=== PATIENT | male | born 1945 | race Caucasian/White ===

== ENCOUNTER 2017-09-03 22:47 | Emergency (ER) | payer MEDICARE, BC ==
[2017-09-03] MEDS ORDERED: Sodium Chloride 0.9% 10 ML Syringe FLUSH PRN (23:18)
[2017-09-03] MEDS ORDERED: Albuterol/Ipratropium 3.0-0.5 MG/3 ML Neb Soln NEB ONE (23:18)
[2017-09-03] MEDS ORDERED: Sodium Chloride 0.9% 2.5 ML Syringe FLUSH PRN (23:18)
--- NOTE | 2017-09-03 23:23 | EDM.PDOC ---
ED HPI GENERAL MEDICAL PROBLEM - General Chief Complaint: Cardiovascular Problem Stated Complaint: HIGH BLOOD PRESSURE Time Seen by Provider: 09/03/17 23:04 - History of Present Illness INITIAL COMMENTS - FREE TEXT/NARRATIVE: HISTORY AND PHYSICAL: History of present illness: The patient is a 72-year-old male follows in our family practice clinic and has a history of hypertension diabetes hypercholesterolemia and uses C Pap and has a long-standing history of dependent lower extremity edema for which she takes Lasix 80 mg daily and presents with family with episodic headache on and off for "a long while" and not feeling right which she is very ill-defined describing. He says he had a bad cold a couple weeks ago that he doesn't feel that he necessarily shaped but is not coughing up any phlegm and he has not had any fevers. He has no chest pain neck pain abdominal pain vomiting or diarrhea and no urinary complaints. He says his legs are swollen and unchanged from old. He says that he mostly has trouble at nighttime when he is trying to go to sleep and he feels very restless. He states compliance with his medications and his C Pap. He has not told Dr. Geller, his provider in the clinic, about the symptoms and his has been out of town for the last 2 weeks so the daughter at bedside is concerned about his true compliance with meds and his symptomatology. The patient says he's been eating and drinking normally. He is overall very vague about his symptoms and being forthcoming with his history. He does not take his blood pressure at home but was concerned about it Review of systems: As per history of present illness and below otherwise all systems reviewed and negative. Past medical history: As per history of present illness and as reviewed below otherwise noncontributory. Surgical history: As per history of present illness and as reviewed below otherwise noncontributory. Social history: No reported history of drug or alcohol abuse. Family history: As per history of present illness and as reviewed below otherwise noncontributory. Physical exam: Gen.: Well-developed well-nourished very overweight man who has a very large rotund abdomen but is speaking clearly without breathlessness. Vital signs are noted by me. On my evaluation his O2 sat on room air was 89-90%. HEENT: Atraumatic, normocephalic, pupils reactive, negative for conjunctival pallor or scleral icterus, mucous membranes moist, throat clear, neck supple, nontender, trachea midline. Lungs: Clear to auscultation with diminished breath sounds in the bases bilaterally and coarse breath sounds bilaterally, breath sounds equal bilaterally, chest nontender. Heart: S1S2, regular rate and rhythm no overt murmur but heart sounds are very distant Abdomen: Soft, nondistended, nontender. Rotund abdomen with hypoactive bowel sounds Negative for masses or hepatosplenomegaly. Negative for costovertebral tenderness. Pelvis: Stable nontender. Genitourinary: Deferred. Rectal: Deferred. Extremities: Atraumatic, negative for cords or calf pain. Neurovascular unremarkable. As no leg asymmetry but there is diffuse brawny edema and chronic skin changes of bilateral lower extremities appreciated Neuro: Awake, alert, oriented. Cranial nerves II through XII unremarkable. Cerebellum unremarkable. Motor and sensory unremarkable throughout. Exam nonfocal. Skin: There is no diaphoresis and he does have a pale overall appearance Diagnostics: EKG CBC CMP INR lactic acid UA troponin BNP influenza chest x-ray urine culture Therapeutics: IV O2 monitor DuoNeb Patient and family member at bedside are aware of all testing results and I will give him an antibiotic for home for his early UTI and send a urine culture. The patient states he does not feel any differently after the nebulizer treatment but his O2 sat on room air now is 93% on my evaluation. He does intermittently in our conversation take short shallow breaths and have encouraged him to try to take deeper breaths and focus on that. I also recommended to family that we call and get him a follow-up appointment in the next several days in the clinic. I have discussed with them the possibility of admission for further observation care and he declines that at this time and wants to be discharged home. His blood pressure is also normalized. I advised him on reasons to return to the ED Impression: Generalized malaise UTI Definitive disposition and diagnosis as appropriate pending reevaluation and review of above. headache Pain Score (Numeric/FACES): 4 - Related Data Allergies Allergy/AdvReac Type Severity Reaction Status Date / Time No Known Allergies Allergy Verified 09/03/17 23:08 Home Meds: Home Meds Allopurinol [Zyloprim] 300 mg PO DAILY 09/04/17 [History] Aspirin [Halfprin] 81 mg PO DAILY 09/04/17 [History] Furosemide 80 mg PO DAILY 09/04/17 [History] Potassium Chloride 20 meq PO DAILY 09/04/17 [History] Simvastatin [Zocor] 20 mg PO DAILY 09/04/17 [History] Telmisartan [Micardis] 80 mg PO DAILY 09/04/17 [History] metFORMIN [Glucophage] 1,000 mg PO BIDMEALS 09/04/17 [History] ED ROS GENERAL - Review of Systems Review Of Systems: ROS reveals no pertinent complaints other than HPI. ED EXAM, GENERAL - Physical Exam Exam: See Below (See dictation) Course - Vital Signs Last Recorded V/S: Last Vital Signs Temp 35.9 C 09/03/17 23:01 Pulse 91 09/04/17 01:04 Resp 24 H 09/04/17 01:04 BP 146/48 H 09/04/17 01:04 Pulse Ox 94 L 09/04/17 01:04 - Orders/Labs/Meds Orders: Active Orders 24 hr Category Date Time Status Cardiac Monitoring [RC] . DIRECTED Care 09/03/17 23:17 Active EKG Documentation Completion [RC] STAT Care 09/03/17 23:17 Active Oxygen Therapy, ED [RC] ASDIRECTED Care 09/03/17 23:17 Active Pulse Oximetry [RC] ASDIRECTED Care 09/03/17 23:17 Active RT Aerosol Therapy [RC] ASDIRECTED Care 09/03/17 23:19 Active Chest 2V [CR] Stat Exams 09/03/17 23:18 Taken CULTURE URINE [RM] Stat Lab 09/03/17 23:30 Received Sodium Chloride 0.9% [Saline Flush] Med 09/03/17 23:18 Active 10 ml FLUSH ASDIRECTED PRN Sodium Chloride 0.9% [Saline Flush] Med 09/03/17 23:18 Active 2.5 ml FLUSH ASDIRECTED PRN Saline Lock Insert [OM.PC] Stat Oth 09/03/17 23:17 Ordered Medication Orders Sodium Chloride (Saline Flush) 10 ml FLUSH ASDIRECTED PRN PRN Reason: Keep Vein Open Sodium Chloride (Saline Flush) 2.5 ml FLUSH ASDIRECTED PRN PRN Reason: Keep Vein Open Labs: Laboratory Tests 09/03/17 09/03/17 09/03/17 Range/Units 23:30 23:35 23:35 WBC 9.85 (4.0-11.0) K/uL RBC 4.70 (4.50-5.90) M/uL Hgb 13.8 (13.0-17.0) g/dL Hct 42.1 (38.0-50.0) % MCV 89.6 (80.0-98.0) fL MCH 29.4 (27.0-32.0) pg MCHC 32.8 (31.0-37.0) g/dL RDW Std Deviation 47.9 (28.0-62.0) fl RDW Coeff of Jane 15 (11.0-15.0) % Plt Count 204 (150-400) K/uL MPV 9.50 (7.40-12.00) fL Neut % (Auto) 65.9 (48.0-80.0) % Lymph % (Auto) 23.0 (16.0-40.0) % [place] % (Auto) 7.6 (0.0-15.0) % Eos % (Auto) 3.2 (0.0-7.0) % Baso % (Auto) 0.3 (0.0-1.5) % Neut # (Auto) 6.5 H (1.4-5.7) K/uL Lymph # (Auto) 2.3 (0.6-2.4) K/uL [place] # (Auto) 0.8 (0.0-0.8) K/uL Eos # (Auto) 0.3 (0.0-0.7) K/uL Baso # (Auto) 0.0 (0.0-0.1) K/uL Nucleated RBC % 0.0 /100WBC Nucleated RBCs # 0 K/uL INR 1.03 Lactate (0.20-2.00) mmol/L Sodium (136-148) mmol/L Potassium (3.5-5.1) mmol/L Chloride (98-107) mmol/L Carbon Dioxide (21.0-32.0) mmol/L BUN (7.0-18.0) mg/dL Creatinine (0.8-1.3) mg/dL Est Cr Clr Drug Dosing mL/min Estimated GFR (MDRD) ml/min Glucose (74-106) mg/dL Calcium (8.5-10.1) mg/dL Total Bilirubin (0.2-1.0) mg/dL AST (15-37) IU/L ALT (14-63) IU/L Alkaline Phosphatase (46-116) U/L Troponin I (0.000-0.056) ng/mL B-Natriuretic Peptide (<100) PG/ML Total Protein (6.4-8.2) g/dL Albumin (3.4-5.0) g/dL Globulin (2.0-3.5) g/dL Albumin/Globulin Ratio (1.3-2.8) Urine Color YELLOW Urine Appearance CLEAR Urine pH 7.0 (5.0-8.0) Ur Specific [place] 1.010 (1.001-1.035) Urine Protein NEGATIVE (NEGATIVE) mg/dL Urine Glucose (UA) NEGATIVE (NEGATIVE) mg/dL Urine Ketones TRACE H (NEGATIVE) mg/dL Urine Occult Blood SMALL H (NEGATIVE) Urine Nitrite NEGATIVE (NEGATIVE) Urine Bilirubin NEGATIVE (NEGATIVE) Urine Urobilinogen 1.0 (<2.0) EU/dL Ur Leukocyte Esterase SMALL (NEGATIVE) Urine RBC 0-3 (0-2/HPF) Urine WBC 2-4 (0-5/HPF) Ur Epithelial Cells RARE (NONE-FEW) Urine Bacteria FEW (NEGATIVE) 09/03/17 09/03/17 09/03/17 Range/Units 23:35 23:35 23:35 WBC (4.0-11.0) K/uL RBC (4.50-5.90) M/uL Hgb (13.0-17.0) g/dL Hct (38.0-50.0) % MCV (80.0-98.0) fL MCH (27.0-32.0) pg MCHC (31.0-37.0) g/dL RDW Std Deviation (28.0-62.0) fl RDW Coeff of Jane (11.0-15.0) % Plt Count (150-400) K/uL MPV (7.40-12.00) fL Neut % (Auto) (48.0-80.0) % Lymph % (Auto) (16.0-40.0) % [place] % (Auto) (0.0-15.0) % Eos % (Auto) (0.0-7.0) % Baso % (Auto) (0.0-1.5) % Neut # (Auto) (1.4-5.7) K/uL Lymph # (Auto) (0.6-2.4) K/uL [place] # (Auto) (0.0-0.8) K/uL Eos # (Auto) (0.0-0.7) K/uL Baso # (Auto) (0.0-0.1) K/uL Nucleated RBC % /100WBC Nucleated RBCs # K/uL INR Lactate 2.3 H (0.20-2.00) mmol/L Sodium 143 (136-148) mmol/L Potassium 3.9 (3.5-5.1) mmol/L Chloride 105 (98-107) mmol/L Carbon Dioxide 27.8 (21.0-32.0) mmol/L BUN 12 (7.0-18.0) mg/dL Creatinine 0.9 (0.8-1.3) mg/dL Est Cr Clr Drug Dosing 79.02 mL/min Estimated GFR (MDRD) > 60.0 ml/min Glucose 143 H (74-106) mg/dL Calcium 9.4 (8.5-10.1) mg/dL Total Bilirubin 0.3 (0.2-1.0) mg/dL AST 19 (15-37) IU/L ALT 37 (14-63) IU/L Alkaline Phosphatase 70 (46-116) U/L Troponin I < 0.050 (0.000-0.056) ng/mL B-Natriuretic Peptide 61 (<100) PG/ML Total Protein 7.2 (6.4-8.2) g/dL Albumin 3.7 (3.4-5.0) g/dL Globulin 3.5 (2.0-3.5) g/dL Albumin/Globulin Ratio 1.1 L (1.3-2.8) Urine Color Urine Appearance Urine pH (5.0-8.0) Ur Specific [place] (1.001-1.035) Urine Protein (NEGATIVE) mg/dL Urine Glucose (UA) (NEGATIVE) mg/dL Urine Ketones (NEGATIVE) mg/dL Urine Occult Blood (NEGATIVE) Urine Nitrite (NEGATIVE) Urine Bilirubin (NEGATIVE) Urine Urobilinogen (<2.0) EU/dL Ur Leukocyte Esterase (NEGATIVE) Urine RBC (0-2/HPF) Urine WBC (0-5/HPF) Ur Epithelial Cells (NONE-FEW) Urine Bacteria (NEGATIVE) Meds: Medications Generic Name Dose Route Start Last Admin Trade Name Freq PRN Reason Stop Dose Admin Sodium Chloride 10 ml 09/03/17 23:18 Saline Flush FLUSH ASDIRECTED PRN Keep Vein Open Sodium Chloride 2.5 ml 09/03/17 23:18 Saline Flush FLUSH ASDIRECTED PRN Keep Vein Open Discontinued Medications Generic Name Dose Route Start Last Admin Trade Name Freq PRN Reason Stop Dose Admin Albuterol/Ipratropium 3 ml 09/03/17 23:18 09/03/17 23:50 Duoneb 3.0-0.5 Mg/3 Ml NEB 09/03/17 23:19 3 ml ONETIME ONE Administration Departure - Departure Time of Disposition: :06 Disposition: Home, Self-Care 01 Condition: Good Clinical Impression: Generalized weakness UTI (urinary tract infection) Qualifiers: Urinary tract infection type: site unspecified Hematuria presence: without hematuria Qualified Code(s): N39.0 - Urinary tract infection, site not specified Referrals: Matty Geller MD [Primary Care Provider] - Forms: ED Department Discharge Additional Instructions: The following information is given to patients seen in the emergency department who are being discharged to home. This information is to outline your options for follow-up care. We provide all patients seen in our emergency department with a follow-up referral. The need for follow-up, as well as the timing and circumstances, are variable depending upon the specifics of your emergency department visit. If you don't have a primary care physician on staff, we will provide you with a referral. We always advise you to contact your personal physician following an emergency department visit to inform them of the circumstance of the visit and for follow-up with them and/or the need for any referrals to a consulting specialist. The emergency department will also refer you to a specialist when appropriate. This referral assures that you have the opportunity for followup care with a specialist. All of these measure are taken in an effort to provide you with optimal care, which includes your followup. Under all circumstances we always encourage you to contact your private physician who remains a resource for coordinating your care. When calling for followup care, please make the office aware that this follow-up is from your recent emergency room visit. If for any reason you are refused follow-up, please contact the [facility] emergency department at and ask to speak to the emergency department charge nurse. [facility] Primary care- Internal Medicine and Family [address] [id number] Please continue all your home medications and as the antibiotic you have been prescribed, Cipro, for the urine infection. Please monitor your symptoms and return to ER as needed and as discussed. Please call the clinic first thing in the morning to schedule a follow-up appointment with your provider or one of the other family practice doctors in the next few days for further care and reevaluation. - My Orders Last 24 Hours: My Active Orders 09/03/17 23:17 Cardiac Monitoring [RC] . DIRECTED EKG Documentation Completion [RC] STAT Oxygen Therapy, ED [RC] ASDIRECTED Pulse Oximetry [RC] ASDIRECTED Saline Lock Insert [OM.PC] Stat 09/03/17 23:18 Chest 2V [CR] Stat Sodium Chloride 0.9% [Saline Flush] 10 ml FLUSH ASDIRECTED PRN Sodium Chloride 0.9% [Saline Flush] 2.5 ml FLUSH ASDIRECTED PRN 09/03/17 23:19 RT Aerosol Therapy [RC] ASDIRECTED 09/03/17 23:30 CULTURE URINE [RM] Stat - Assessment/Plan Last 24 Hours: My Active Orders 09/03/17 23:17 Cardiac Monitoring [RC] . DIRECTED EKG Documentation Completion [RC] STAT Oxygen Therapy, ED [RC] ASDIRECTED Pulse Oximetry [RC] ASDIRECTED Saline Lock Insert [OM.PC] Stat 09/03/17 23:18 Chest 2V [CR] Stat Sodium Chloride 0.9% [Saline Flush] 10 ml FLUSH ASDIRECTED PRN Sodium Chloride 0.9% [Saline Flush] 2.5 ml FLUSH ASDIRECTED PRN 09/03/17 23:19 RT Aerosol Therapy [RC] ASDIRECTED 09/03/17 23:30 CULTURE URINE [RM] Stat
[2017-09-04 00:16] LABS: CHLORIDE,CL 105 mmol/L (98-107); SODIUM,NA 143 mmol/L (136-148)
--- NOTE | 2017-09-04 10:35 | CR ---
EXAM DATE: 09/03/17 PATIENT'S AGE: 72 Patient: MILTON GUEVARA Facility: [place], [place] Site . Site : 1945 Study: XRay Chest [id number] 12:31:10 AM Ordering Physician: Issac Zazueta Final Report: INDICATION: Hypertension, shortness of breath TECHNIQUE: Chest 2 views. COMPARISON: November 13, 2011 FINDINGS: Stable cardiomegaly. No pneumothorax, focal consolidation, or significant effusion. Pulmonary vasculature is normal. No acute osseous abnormality. IMPRESSION: No sign of acute disease. Dictated by Asia Graves MD @ Sep 04 2017 12:33AM (Electronic Signature) Report Signed by Proxy. [facility]
== END 2017-09-04 01:42 | disposition home or self-care (01) ==
LOC: MW.ED 22:47
DX: N39.0 Urinary tract infection, site not specified (principal); R53.1 Weakness; I10 Essential (primary) hypertension; E11.9 Type 2 diabetes mellitus without complications; E78.00 Pure hypercholesterolemia, unspecified; Z79.899 Other long term (current) drug therapy; Z79.82 Long term (current) use of aspirin; Z79.84 Long term (current) use of oral hypoglycemic drugs
CPT/HCPCS: 36415; 71046; 71046-26; 80053; 81001; 83605; 83880; 84484; 85025; 85610; 87086; 87804; 93005; 94640; 99284; 99284-25

== ENCOUNTER 2018-03-19 10:20 | Emergency (ER) | payer MEDICARE, BC ==
[2018-03-19] MEDS ORDERED: Albuterol/Ipratropium 3.0-0.5 MG/3 ML Neb Soln NEB ONE (10:44)
[2018-03-19] MEDS ORDERED: methylPREDNISolone Sodium Succinate 125 MG/2 ML SDV IVPUSH ONE (10:44)
[2018-03-19] MEDS ORDERED: Sodium Chloride 0.9% 1,000 ML IV SCH (10:45)
--- NOTE | 2018-03-19 10:46 | EDM.PDOC ---
ED HPI GENERAL MEDICAL PROBLEM - General Chief Complaint: Respiratory Problem Stated Complaint: CHEST PAIN Time Seen by Provider: 03/19/18 10:45 Source of Information: Reports: Patient - History of Present Illness INITIAL COMMENTS - FREE TEXT/NARRATIVE: HISTORY AND PHYSICAL: History of present illness: [Patient with intermittent chest pain 2 out of 10 nonradiating shortness of breath on exertion only, able ambulate 10 feet only, no diaphoresis presents by private vehicle in no distress. Found to be hypoxic on room air he 5% at rest No current active chest pain History of CHF Review of systems: As per history of present illness and below otherwise all systems reviewed and negative. Past medical history: As per history of present illness and as reviewed below otherwise noncontributory. Surgical history: As per history of present illness and as reviewed below otherwise noncontributory. Social history: No reported history of drug or alcohol abuse. Family history: As per history of present illness and as reviewed below otherwise noncontributory. Physical exam: HEENT: Atraumatic, normocephalic, pupils reactive, negative for conjunctival pallor or scleral icterus, mucous membranes moist, throat clear, neck supple, nontender, trachea midline. Lungs: Clear to auscultation, breath sounds equal bilaterally, chest nontender. Heart: S1S2, regular, negative for clicks, rubs, or JVD. Abdomen: Soft, nondistended, nontender. Negative for masses or hepatosplenomegaly. Negative for costovertebral tenderness. Pelvis: Stable nontender. Genitourinary: Deferred. Rectal: Deferred. Extremities: Atraumatic, negative for cords or calf pain. Neurovascular unremarkable. Neuro: Awake, alert, oriented. Cranial nerves II through XII unremarkable. Cerebellum unremarkable. Motor and sensory unremarkable throughout. Exam nonfocal. Diagnostics: [CBC CMP UA INR troponin lipase d-dimer EKG Chest 1 view ] Therapeutics: [ normal saline Solu-Medrol 125 mg IV DuoNeb ]Lovenox 180 mg subcutaneous Patient is transferred to the ER Dr. Mosqueda for CT consideration and retract Currently ground transfers not available to possibly 4 PM, hence we have elected to fly the patient has PE is a strong consideration Impression: Hypoxia Rule out PE [Chest pain ]Shortness of breath Left pleural effusion Definitive disposition and diagnosis as appropriate pending reevaluation and review of above. - Related Data Allergies Allergy/AdvReac Type Severity Reaction Status Date / Time No Known Allergies Allergy Verified 03/19/18 10:34 Home Meds: Home Meds Allopurinol [Zyloprim] 300 mg PO DAILY 09/04/17 [History] Simvastatin [Zocor] 20 mg PO BEDTIME 09/04/17 [History] metFORMIN [Glucophage] 1,000 mg PO BIDMEALS 09/04/17 [History] Aspirin 325 mg PO DAILY 03/02/18 [History] Furosemide 40 mg PO BID 03/02/18 [History] Losartan [Cozaar] 100 mg PO BEDTIME 03/02/18 [History] Potassium Chloride [Klor-Con M20] 1 tab PO BID 03/19/18 [History] Past Medical History HEENT History: Reports: Cataract Cardiovascular History: Reports: Afib, Heart Failure, High Cholesterol, Hypertension Respiratory History: Reports: Asthma, COPD, Sleep Apnea, SOB Other Respiratory History: on CPAP Gastrointestinal History: Reports: Fecal Incontinence Musculoskeletal History: Reports: Arthritis Other Musculoskeletal History: hx. fx collarbone Psychiatric History: Reports: Anxiety, Depression Endocrine/Metabolic History: Reports: Diabetes, Type II, Obesity/BMI 30+ Dermatologic History: Reports: Cellulitis, Venous Stasis Dermatitis - Infectious Disease History Infectious Disease History: Reports: Chicken Pox - Past Surgical History HEENT Surgical History: Reports: Tonsillectomy Cardiovascular Surgical History: Reports: None Respiratory Surgical History: Reports: None GI Surgical History: Reports: Hernia, Abdominal Musculoskeletal Surgical History: Reports: None Social & Family History - Family History Family Medical History: Noncontributory - Tobacco Use Smoking Status *Q: Never Smoker - Caffeine Use Caffeine Use: Reports: None Caffeine Use Comment: 1-2 diet pop drinks per day - Alcohol Use Days Per Week of Alcohol Use: 2 Number of Drinks Per Day: 6 Total Drinks Per Week: 12 - Recreational Drug Use Recreational Drug Use: No ED ROS GENERAL - Review of Systems Review Of Systems: See Below ED EXAM, GENERAL - Physical Exam Exam: See Below Course - Vital Signs Last Recorded V/S: Last Vital Signs Temp 97.8 F 03/19/18 10:26 Pulse 83 03/19/18 10:26 Resp 22 H 03/19/18 10:26 BP 203/86 H 03/19/18 10:26 Pulse Ox 95 03/19/18 10:59 - Orders/Labs/Meds Orders: Active Orders 24 hr Category Date Time Status EKG Documentation Completion [RC] STAT Care 03/19/18 10:44 Active RT Aerosol Therapy [RC] ASDIRECTED Care 03/19/18 10:44 Active UA W/MICROSCOPIC [URIN] Stat Lab 03/19/18 10:44 Ordered Sodium Chloride 0.9% [Normal Saline] 1,000 ml Med 03/19/18 10:45 Active IV STAT Medication Orders Sodium Chloride (Normal Saline) 1,000 mls @ 125 mls/hr IV STAT SHRUTHI Last Admin: 03/19/18 11:40 Dose: 125 mls/hr Labs: Laboratory Tests 03/19/18 03/19/18 03/19/18 Range/Units 10:50 10:50 10:50 WBC 11.53 H (4.0-11.0) K/uL RBC 4.73 (4.50-5.90) M/uL Hgb 13.2 (13.0-17.0) g/dL Hct 40.8 (38.0-50.0) % MCV 86.3 (80.0-98.0) fL MCH 27.9 (27.0-32.0) pg MCHC 32.4 (31.0-37.0) g/dL RDW Std Deviation 48.9 (28.0-62.0) fl RDW Coeff of Jane 16 H (11.0-15.0) % Plt Count 287 (150-400) K/uL MPV 9.40 (7.40-12.00) fL Neut % (Auto) 79.9 (48.0-80.0) % Lymph % (Auto) 9.7 L (16.0-40.0) % [place] % (Auto) 8.8 (0.0-15.0) % Eos % (Auto) 1.3 (0.0-7.0) % Baso % (Auto) 0.3 (0.0-1.5) % Neut # (Auto) 9.2 H (1.4-5.7) K/uL Lymph # (Auto) 1.1 (0.6-2.4) K/uL [place] # (Auto) 1.0 H (0.0-0.8) K/uL Eos # (Auto) 0.2 (0.0-0.7) K/uL Baso # (Auto) 0.0 (0.0-0.1) K/uL Nucleated RBC % 0.0 /100WBC Nucleated RBCs # 0 K/uL INR 1.12 D-Dimer, Quantitative 3.74 H (0.0-0.52) mg/LFEU Sodium 139 (136-148) mmol/L Potassium 3.9 (3.5-5.1) mmol/L Chloride 102 (98-107) mmol/L Carbon Dioxide 29.0 (21.0-32.0) mmol/L BUN 9 (7.0-18.0) mg/dL Creatinine 0.9 (0.8-1.3) mg/dL Est Cr Clr Drug Dosing 77.86 mL/min Estimated GFR (MDRD) > 60.0 ml/min Glucose 144 H (74-106) mg/dL Calcium 9.2 (8.5-10.1) mg/dL Total Bilirubin 0.5 (0.2-1.0) mg/dL AST 17 (15-37) IU/L ALT 31 (14-63) IU/L Alkaline Phosphatase 90 (46-116) U/L Troponin I < 0.050 (0.000-0.056) ng/mL B-Natriuretic Peptide (<100) PG/ML Total Protein 7.6 (6.4-8.2) g/dL Albumin 3.1 L (3.4-5.0) g/dL Globulin 4.5 H (2.0-3.5) g/dL Albumin/Globulin Ratio 0.7 L (1.3-2.8) Lipase 209 (73-393) U/L 03/19/18 Range/Units 10:50 WBC (4.0-11.0) K/uL RBC (4.50-5.90) M/uL Hgb (13.0-17.0) g/dL Hct (38.0-50.0) % MCV (80.0-98.0) fL MCH (27.0-32.0) pg MCHC (31.0-37.0) g/dL RDW Std Deviation (28.0-62.0) fl RDW Coeff of Jane (11.0-15.0) % Plt Count (150-400) K/uL MPV (7.40-12.00) fL Neut % (Auto) (48.0-80.0) % Lymph % (Auto) (16.0-40.0) % [place] % (Auto) (0.0-15.0) % Eos % (Auto) (0.0-7.0) % Baso % (Auto) (0.0-1.5) % Neut # (Auto) (1.4-5.7) K/uL Lymph # (Auto) (0.6-2.4) K/uL [place] # (Auto) (0.0-0.8) K/uL Eos # (Auto) (0.0-0.7) K/uL Baso # (Auto) (0.0-0.1) K/uL Nucleated RBC % /100WBC Nucleated RBCs # K/uL INR D-Dimer, Quantitative (0.0-0.52) mg/LFEU Sodium (136-148) mmol/L Potassium (3.5-5.1) mmol/L Chloride (98-107) mmol/L Carbon Dioxide (21.0-32.0) mmol/L BUN (7.0-18.0) mg/dL Creatinine (0.8-1.3) mg/dL Est Cr Clr Drug Dosing mL/min Estimated GFR (MDRD) ml/min Glucose (74-106) mg/dL Calcium (8.5-10.1) mg/dL Total Bilirubin (0.2-1.0) mg/dL AST (15-37) IU/L ALT (14-63) IU/L Alkaline Phosphatase (46-116) U/L Troponin I (0.000-0.056) ng/mL B-Natriuretic Peptide 131 H (<100) PG/ML Total Protein (6.4-8.2) g/dL Albumin (3.4-5.0) g/dL Globulin (2.0-3.5) g/dL Albumin/Globulin Ratio (1.3-2.8) Lipase (73-393) U/L Meds: Medications Generic Name Dose Route Start Last Admin Trade Name Freq PRN Reason Stop Dose Admin Sodium Chloride 1,000 mls @ 125 mls/hr 03/19/18 10:45 03/19/18 11:40 Normal Saline IV 125 mls/hr STAT SHRUTHI Administration Discontinued Medications Generic Name Dose Route Start Last Admin Trade Name Gaurav PRN Reason Stop Dose Admin Albuterol/Ipratropium 3 ml 03/19/18 10:44 03/19/18 10:58 Duoneb 3.0-0.5 Mg/3 Ml NEB 03/19/18 10:45 3 ml ONETIME ONE Administration Enoxaparin Sodium 150 mg 03/19/18 12:24 Lovenox SUBCUT 03/19/18 12:25 ONETIME ONE Enoxaparin Sodium 30 mg 03/19/18 12:25 Lovenox SUBCUT 03/19/18 12:26 ONETIME ONE Furosemide 40 mg 03/19/18 12:00 Lasix IVPUSH 03/19/18 12:01 NOW ONE Methylprednisolone Sodium Succinate 125 mg 03/19/18 10:44 03/19/18 11:42 Solu-Medrol IVPUSH 03/19/18 10:45 125 mg ONETIME ONE Administration Metoprolol Tartrate 5 mg 03/19/18 12:00 Lopressor IVPUSH 03/19/18 12:11 Q5M SHRUTHI Departure - Departure Time of Disposition: 12:27 Disposition: DC/Tfer to Acute Hospital 02 Condition: Poor Clinical Impression: CHF (congestive heart failure), Hypoxia - Discharge Information Referrals: PCP,None [Primary Care Provider] - Forms: ED Department Discharge - My Orders Last 24 Hours: My Active Orders 03/19/18 10:44 EKG Documentation Completion [RC] STAT RT Aerosol Therapy [RC] ASDIRECTED UA W/MICROSCOPIC [URIN] Stat 03/19/18 10:45 Sodium Chloride 0.9% [Normal Saline] 1,000 ml IV STAT - Assessment/Plan Last 24 Hours: My Active Orders 03/19/18 10:44 EKG Documentation Completion [RC] STAT RT Aerosol Therapy [RC] ASDIRECTED UA W/MICROSCOPIC [URIN] Stat 03/19/18 10:45 Sodium Chloride 0.9% [Normal Saline] 1,000 ml IV STAT
[2018-03-19 11:46] LABS: CHLORIDE,CL 102 mmol/L (98-107); SODIUM,NA 139 mmol/L (136-148)
--- NOTE | 2018-03-19 11:49 | CR ---
EXAMINATION: Portable chest radiograph. HISTORY: Hypoxia. FINDINGS: The trachea is midline. The heart is enlarged. There is a moderate left pleural effusion. No pneumoth orax. Osseous structures appear unremarkable. IMPRESSION: Cardiomegaly with a left pleural effusion, likely exacerbation of CHF.
[2018-03-19] MEDS ORDERED: Metoprolol Tartrate 5 MG/5 ML SDV IVPUSH SCH (12:00)
[2018-03-19] MEDS ORDERED: Furosemide 40 MG/4 ML VIAL IVPUSH ONE (12:00)
[2018-03-19] MEDS ORDERED: Enoxaparin 150 MG/1 ML Syringe SUBCUT ONE (12:24)
[2018-03-19] MEDS ORDERED: Enoxaparin 30 MG/0.3 ML Syringe SUBCUT ONE (12:25)
== END 2018-03-19 13:11 ==
LOC: MW.ED 10:20
DX: I11.0 Hypertensive heart disease with heart failure (principal); I50.9 Heart failure, unspecified; R09.02 Hypoxemia; J90 Pleural effusion, not elsewhere classified; E11.9 Type 2 diabetes mellitus without complications; E66.9 Obesity, unspecified; I48.91 Unspecified atrial fibrillation; Z79.82 Long term (current) use of aspirin; Z79.84 Long term (current) use of oral hypoglycemic drugs; Z79.899 Other long term (current) drug therapy
CPT/HCPCS: 71045; 80053; 81001; 83690; 83880; 84484; 85025; 85379; 85610; 93005; 94640; 96361; 96372; 96374; 96375; 99285; J1650; J1940; J2930; J3490; J7040; J7620-GY

== ENCOUNTER 2020-02-27 11:53 | Inpatient (IN) | payer MEDICARE, BC, OTHER ==
[2020-02-27] MEDS ORDERED: Sodium Chloride 0.9% 2.5 ML Syringe FLUSH PRN (12:02)
[2020-02-27] MEDS ORDERED: Sodium Chloride 0.9% 10 ML Syringe FLUSH PRN (12:02)
[2020-02-27] MEDS ORDERED: Diltiazem 25 MG/5 ML SDV IVPUSH ONE (12:03)
[2020-02-27] MEDS ORDERED: Diltiazem 125 MG in Sodium Chloride 0.9% 100 ML IV SCH (12:15)
[2020-02-27] MEDS ORDERED: Diltiazem 100 MG in Sodium Chloride 0.9% 100 ML IV SCH ×4 (12:15)
--- NOTE | 2020-02-27 12:18 | EDM.PDOC ---
ED HPI GENERAL MEDICAL PROBLEM - General Chief Complaint: Respiratory Problem Stated Complaint: INCREASED HEART RATE Time Seen by Provider: 02/27/20 12:00 Source of Information: Reports: Patient, Other (clinic called and spoke to FREDY Sánchez) - History of Present Illness INITIAL COMMENTS - FREE TEXT/NARRATIVE: History of present illness: 74-year-old male brought over from [facility] due to elevated heart rate and dyspnea. The patient reported he did not have any significant complaints but apparently when he got to the clinic for his routine primary care visit, they noticed his heart rate to be in the 250s. Once they sat him down and rested his heart rate went down to the 120s and they checked an EKG and found him to be in atrial fibrillation. They did report he had a history of atrial fibrillation, seen on prior EKG in 2018. Denies chest pain. He does report that over the last 2 weeks he has had decreased exercise tolerance and increased shortness of breath and palpitations with walking across the parking lot or even greater than 30 feet. He did develop some worsening shortness of breath and tachycardia transferring from wheelchair to stretcher in the emergency department here. He reports that he has chronically been sleeping in a recliner for the last 20 years due to some chronic dyspnea. Denies any chest pain, coughing, headache or chills. Also denies any leg pain. He does have some chronic lower extremity swelling and an open wound on the right lower extremity which he tells me happens all the time. 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 Simpson had recently changed him from 80 mg of furosemide daily (40 twice daily ) to 40 mg of torsemide but the patient did not have any improvement in his lower extremity swelling and so he went back to taking his furosemide. The patient provided me his med list, which I reviewed, he only takes aspirin and no other anticoagulation. Review of systems: As per history of present illness and below otherwise all systems reviewed and negative. Past medical history: As per history of present illness and as reviewed below otherwise noncontributory. CHF, atrial fibrillation, lower extremity ulcers, diabetes, diastolic heart failure, hypokalemia, DVT, gout, hypercholesterolemia, obesity, venous stasis dermatitis, umbilical hernia, cellulitis, chronic leg edema, hypertension Surgical history: As per history of present illness and as reviewed below otherwise noncontributory. Tonsillectomy Social history: No reported history of drug or alcohol abuse. Alcohol use occasionally, never smoker but did have remote secondhand smoke exposure Family history: As per history of present illness and as reviewed below otherwise noncontributory. Fatherhypertension Physical exam: GEN: Mild respiratory distress while transferring from wheelchair to stretcher, obese, somewhat chronically ill appearing, morbidly obese HEENT: Atraumatic, normocephalic, mucous membranes moist, Neck: supple, nontender, trachea midline. Lungs: Mild to moderate respiratory distress., Improved after the patient is seated on the stretcher. No wheezing, rales or rhonchi Heart: Tachycardic and irregular, 130s to 150s, appears consistent with atrial fibrillation on monitor and EKG Abdomen: Soft, nondistended, nontender. Obese. Large lower abdominal hernia Back: nontender Extremities: Chronicappearing stasis dermatitis with lichenization, RLE ulcer/open wound, erythematous, does not appear infected, no purulent drainage, no calf tenderness. Neurovascularly intact. Neuro: Awake, alert, oriented. Neuro Exam nonfocal. Skin: warm, dry, no lesions Diagnostics: Labs, EKG, chest x-ray Therapeutics: Diltiazem bolus and drip MDM: Impression: AFib with RVR Plan: [] Definitive disposition and diagnosis as appropriate pending reevaluation and review of above. - Related Data Allergies Allergy/AdvReac Type Severity Reaction Status Date / Time No Known Allergies Allergy Verified 02/27/20 12:03 Home Meds: Home Meds Simvastatin [Zocor] 20 mg PO BEDTIME 09/04/17 [History] allopurinoL [Zyloprim] 300 mg PO DAILY 09/04/17 [History] metFORMIN [Glucophage] 1,000 mg PO BIDMEALS 09/04/17 [History] Aspirin 325 mg PO DAILY 03/02/18 [History] Furosemide 40 mg PO BID 03/02/18 [History] Losartan [Cozaar] 100 mg PO BEDTIME 03/02/18 [History] Potassium Chloride [Klor-Con M20] 1 tab PO BID 03/19/18 [History] Past Medical History HEENT History: Reports: Cataract Cardiovascular History: Reports: Afib, Heart Failure, High Cholesterol, Hypertension Respiratory History: Reports: Asthma, COPD, Sleep Apnea, SOB Other Respiratory History: on CPAP Gastrointestinal History: Reports: Fecal Incontinence Musculoskeletal History: Reports: Arthritis Other Musculoskeletal History: hx. fx collarbone Psychiatric History: Reports: Anxiety, Depression Endocrine/Metabolic History: Reports: Diabetes, Type II, Obesity/BMI 30+ Dermatologic History: Reports: Cellulitis, Venous Stasis Dermatitis - Infectious Disease History Infectious Disease History: Reports: Chicken Pox - Past Surgical History HEENT Surgical History: Reports: Tonsillectomy Cardiovascular Surgical History: Reports: None Respiratory Surgical History: Reports: None GI Surgical History: Reports: Hernia, Abdominal Musculoskeletal Surgical History: Reports: None Social & Family History - Family History Family Medical History: Noncontributory - Caffeine Use Caffeine Use: Reports: None Caffeine Use Comment: 1-2 diet pop drinks per day ED ROS GENERAL - Review of Systems Review Of Systems: See Below (See HPI) ED EXAM, GENERAL - Physical Exam Exam: See Below (See HPI) EKG INTERPRETATION EKG Interpretation Comments: EKG performed today at 11:58 AM, atrial fibrillation with rapid ventricular rate at a rate of 156, mild diffuse ST depressions likely rate related. No STEMI. EKG independently interpreted by me. EKG performed at 4:42 PM, atrial flutter/fibrillation at a rate of 105, mildly prolonged QT interval of 525. No acute ischemia, no STEMI. Independently interpreted by me. Course - Vital Signs Text/Narrative:: Presenting with rate, atrial fibrillation on EKG here and at the clinic. Has had some slowly progressive dyspnea over the last 2 weeks as well without cough or chest pain. History of diastolic heart failure. Patient already on 40 mg twice daily furosemide but was recently changed to torsemide, however self changed himself back to furosemide. Takes only aspirin, no other anticoagulation. Started on diltiazem bolus and diltiazem drip here. Troponin negative. Heart rate improved after diltiazem drip, now in the low 100s. Still appears to be atrial fibrillation versus atrial flutter. Dyspnea improved while patient seated relaxed. BNP not elevated. Chest x-ray with no acute findings to account for the patient's dyspnea. Therefore as the patient had a history of DVT, CT angios was performed. However given the p atient's size and girth, he was not able to fit in the high resolution CT scan, therefore he was scanned in the other CT scanner which has a slightly suboptimal technique and therefore distal branches unable to be visualized, however no large embolism in the proximal arterial branches. No other acute abnormality seen on CT scan. COVID negative. He was started on Lovenox. Repeat troponin negative. Will admit to ICU as he is on ongoing diltiazem drip but otherwise vital signs have been stable here. Last Recorded V/S: Last Vital Signs Temp 96.0 F L 02/27/20 12:01 Pulse 98 02/27/20 13:00 Resp 24 H 02/27/20 12:01 BP 143/76 H 02/27/20 13:00 Pulse Ox 93 L 02/27/20 13:00 - Orders/Labs/Meds Orders: Active Orders 24 hr Category Date Time Status Patient Status [ADT] Routine ADT 02/27/20 15:26 Active Communication Order [RC] STAT Care 02/27/20 13:04 Active Venous Doppler Lwr Ext Bi [US] Stat Exams 02/27/20 14:35 Ordered Diltiazem [Cardizem] 100 mg Med 02/27/20 12:15 Active Sodium Chloride 0.9% [Normal Saline] 100 ml IV ASDIRECTED Sodium Chloride 0.9% [Saline Flush] Med 02/27/20 12:02 Active 10 ml FLUSH ASDIRECTED PRN Sodium Chloride 0.9% [Saline Flush] Med 02/27/20 12:02 Active 2.5 ml FLUSH ASDIRECTED PRN Saline Lock Insert [OM.PC] Stat Oth 02/27/20 12:02 Ordered Medication Orders Diltiazem HCl 100 mg/ Sodium (Chloride) 100 mls @ 5 mls/hr IV ASDIRECTED SHRUTHI Last Infusion: 02/27/20 12:58 Dose: 10 mls/hr Documented by: Admin: 02/27/20 12:26 Dose: 5 mls/hr Documented by: GARETT Pantoprazole Sodium 40 mg/ (Sodium Chloride) 10 mls @ 300 mls/hr IV DAILY SHRUTHI Insulin Aspart (Novolog) 0 unit SUBCUT TIDAC SHRUTHI; Protocol Sodium Chloride (Saline Flush) 10 ml FLUSH ASDIRECTED PRN PRN Reason: Keep Vein Open Last Admin: 02/27/20 12:08 Dose: 10 ml Documented by: IAN Sodium Chloride (Saline Flush) 2.5 ml FLUSH ASDIRECTED PRN PRN Reason: Keep Vein Open Last Admin: 02/27/20 12:08 Dose: 2.5 ml Documented by: [email or web address] Labs: Laboratory Tests 02/27/20 02/27/20 02/27/20 Range/Units 12:00 12:00 12:00 WBC 12.77 H (4.0-11.0) K/uL RBC 4.86 (4.50-5.90) M/uL Hgb 14.0 (13.0-17.0) g/dL Hct 44.1 (38.0-50.0) % MCV 90.7 (80.0-98.0) fL MCH 28.8 (27.0-32.0) pg MCHC 31.7 (31.0-37.0) g/dL RDW Std Deviation 52.3 (28.0-62.0) fl RDW Coeff of Jane 16 H (11.0-15.0) % Plt Count 189 (150-400) K/uL MPV 9.70 (7.40-12.00) fL Neut % (Auto) 78.8 (48.0-80.0) % Lymph % (Auto) 13.0 L (16.0-40.0) % [place] % (Auto) 7.0 (0.0-15.0) % Eos % (Auto) 1.0 (0.0-7.0) % Baso % (Auto) 0.2 (0.0-1.5) % Neut # (Auto) 10.1 H (1.4-5.7) K/uL Lymph # (Auto) 1.7 (0.6-2.4) K/uL [place] # (Auto) 0.9 H (0.0-0.8) K/uL Eos # (Auto) 0.1 (0.0-0.7) K/uL Baso # (Auto) 0.0 (0.0-0.1) K/uL Nucleated RBC % 0.0 /100WBC Nucleated RBCs # 0 K/uL INR 1.39 Sodium 143 (136-148) mmol/L Potassium 3.8 (3.5-5.1) mmol/L Chloride 105 (98-107) mmol/L Carbon Dioxide 25.4 (21.0-32.0) mmol/L BUN 10 (7.0-18.0) mg/dL Creatinine 0.9 (0.8-1.3) mg/dL Est Cr Clr Drug Dosing 79.04 mL/min Estimated GFR (MDRD) > 60.0 ml/min Glucose 152 H (74-106) mg/dL Calcium 9.3 (8.5-10.1) mg/dL Total Bilirubin 0.5 (0.2-1.0) mg/dL AST 30 (15-37) IU/L ALT 33 (14-63) IU/L Alkaline Phosphatase 70 (46-116) U/L Troponin I < 0.050 (0.000-0.056) ng/mL B-Natriuretic Peptide (<100) PG/ML Total Protein 7.7 (6.4-8.2) g/dL Albumin 4.0 (3.4-5.0) g/dL Globulin 3.7 (2.6-4.0) g/dL Albumin/Globulin Ratio 1.1 (0.9-1.6) SARS Virus RNA (PCR) (NEGATIVE) 02/27/20 02/27/20 02/27/20 Range/Units 12:00 15:17 15:20 WBC (4.0-11.0) K/uL RBC (4.50-5.90) M/uL Hgb (13.0-17.0) g/dL Hct (38.0-50.0) % MCV (80.0-98.0) fL MCH (27.0-32.0) pg MCHC (31.0-37.0) g/dL RDW Std Deviation (28.0-62.0) fl RDW Coeff of Jane (11.0-15.0) % Plt Count (150-400) K/uL MPV (7.40-12.00) fL Neut % (Auto) (48.0-80.0) % Lymph % (Auto) (16.0-40.0) % [place] % (Auto) (0.0-15.0) % Eos % (Auto) (0.0-7.0) % Baso % (Auto) (0.0-1.5) % Neut # (Auto) (1.4-5.7) K/uL Lymph # (Auto) (0.6-2.4) K/uL [place] # (Auto) (0.0-0.8) K/uL Eos # (Auto) (0.0-0.7) K/uL Baso # (Auto) (0.0-0.1) K/uL Nucleated RBC % /100WBC Nucleated RBCs # K/uL INR Sodium (136-148) mmol/L Potassium (3.5-5.1) mmol/L Chloride (98-107) mmol/L Carbon Dioxide (21.0-32.0) mmol/L BUN (7.0-18.0) mg/dL Creatinine (0.8-1.3) mg/dL Est Cr Clr Drug Dosing mL/min Estimated GFR (MDRD) ml/min Glucose (74-106) mg/dL Calcium (8.5-10.1) mg/dL Total Bilirubin (0.2-1.0) mg/dL AST (15-37) IU/L ALT (14-63) IU/L Alkaline Phosphatase (46-116) U/L Troponin I < 0.050 (0.000-0.056) ng/mL B-Natriuretic Peptide 95 (<100) PG/ML Total Protein (6.4-8.2) g/dL Albumin (3.4-5.0) g/dL Globulin (2.6-4.0) g/dL Albumin/Globulin Ratio (0.9-1.6) SARS Virus RNA (PCR) NEGATIVE (NEGATIVE) Meds: Medications Generic Name Dose Route Start Last Admin Trade Name Freq PRN Reason Stop Dose Admin Diltiazem HCl 100 mg/ Sodium 100 mls @ 5 mls/hr 02/27/20 12:15 02/27/20 12:58 Chloride IV 10 mls/hr ASDIRECTED SHRUTHI Infusion Pantoprazole Sodium 40 mg/ 10 mls @ 300 mls/hr 02/27/20 16:00 Sodium Chloride IV DAILY SHRUTHI Insulin Aspart 0 unit 02/27/20 17:00 Novolog SUBCUT TIDAC [facility] Protocol Sodium Chloride 10 ml 02/27/20 12:02 02/27/20 12:08 Saline Flush FLUSH 10 ml ASDIRECTED PRN Administration Keep Vein Open Sodium Chloride 2.5 ml 02/27/20 12:02 02/27/20 12:08 Saline Flush FLUSH 2.5 ml ASDIRECTED PRN Administration Keep Vein Open Discontinued Medications Generic Name Dose Route Start Last Admin Trade Name Freq PRN Reason Stop Dose Admin Aspirin 324 mg 02/27/20 13:21 02/27/20 13:41 Aspirin PO 02/27/20 13:22 324 mg ONETIME ONE Administration Diltiazem HCl 20 mg 02/27/20 12:03 02/27/20 12:10 Diltiazem IVPUSH 02/27/20 12:04 20 mg ONETIME ONE Administration Enoxaparin Sodium 190 mg 02/27/20 13:50 Lovenox 1 mg/kg (190 mg) 02/27/20 13:51 SUBCUT ONETIME ONE Furosemide 80 mg/ Sodium 58 mls @ 100 mls/hr 02/27/20 13:21 02/27/20 13:30 Chloride IV 02/27/20 13:55 Not Given ONETIME ONE - Re-Assessments/Exams Free Text/Narrative Re-Assessment/Exam: 02/27/20 15:25 Dr Fernandez called back, accepts the patient. Requests to place in ICU/inpatient as he is on diltiazem drip Departure - Departure Time of Disposition: 15:25 Disposition: Admitted As Inpatient 66 Clinical Impression: Atrial fibrillation with RVR, Dyspnea - Discharge Information Critical Care Note - Critical Care Note Total Time (mins): 35 Comments: atrial fibrillation requiring bolus and drip of diltiazem, continued cardiac monitoring, risk of DVT/PE and CAD requiring in depth evaluation. Dyspnea with minimal exertion Sepsis Event Note (ED) - Evaluation Sepsis Screening Result: No Definite Risk - Focused Exam Vital Signs: Vital Signs Temp Pulse Resp BP Pulse Ox 02/27/20 13:00 98 143/76 H 93 L 02/27/20 12:50 117 H 153/86 H 02/27/20 12:35 94 166/108 H 93 L 02/27/20 12:20 119 H 142/85 H 02/27/20 12:17 125 H 172/120 H 02/27/20 12:01 96.0 F L 127 H 24 H 148/109 H 94 L - My Orders Last 24 Hours: My Active Orders 02/27/20 12:02 Sodium Chloride 0.9% [Saline Flush] 10 ml FLUSH ASDIRECTED PRN Sodium Chloride 0.9% [Saline Flush] 2.5 ml FLUSH ASDIRECTED PRN Saline Lock Insert [OM.PC] Stat 02/27/20 12:15 Diltiazem [Cardizem] 100 mg Sodium Chloride 0.9% [Normal Saline] 100 ml IV ASDIRECTED 02/27/20 13:04 Communication Order [RC] STAT 02/27/20 14:35 Venous Doppler Lwr Ext Bi [US] Stat 02/27/20 15:26 Patient Status [ADT] Routine - Assessment/Plan Last 24 Hours: My Active Orders 02/27/20 12:02 Sodium Chloride 0.9% [Saline Flush] 10 ml FLUSH ASDIRECTED PRN Sodium Chloride 0.9% [Saline Flush] 2.5 ml FLUSH ASDIRECTED PRN Saline Lock Insert [OM.PC] Stat 02/27/20 12:15 Diltiazem [Cardizem] 100 mg Sodium Chloride 0.9% [Normal Saline] 100 ml IV ASDIRECTED 02/27/20 13:04 Communication Order [RC] STAT 02/27/20 14:35 Venous Doppler Lwr Ext Bi [US] Stat 02/27/20 15:26 Patient Status [ADT] Routine
[2020-02-27 12:43] LABS: BLOOD UREA NITROGEN,BUN 10 mg/dL (7.0-18.0); CARBON DIOXIDE,CO2 25.4 mmol/L (21.0-32.0); CHLORIDE,CL 105 mmol/L (98-107); GLUCOSE RANDOM 152 mg/dL (74-106); POTASSIUM,K 3.8 mmol/L (3.5-5.1); SODIUM,NA 143 mmol/L (136-148)
--- NOTE | 2020-02-27 13:01 | CR ---
Chest: Portable view of the chest was obtained. Comparison: No prior chest imaging is available. Heart is felt to be somewhat enlarged. Tortuous thoracic aorta is noted. Lungs show no acute parenchymal change. Bony structures are grossly intact. Impression: 1. Mild cardiomegaly. 2. Nothing acute is otherwise appreciated on portable chest x-ray. Diagnostic code #2 This report was dictated in MDT
[2020-02-27] MEDS ORDERED: Aspirin 81 MG Tab.Chew PO ONE (13:21)
[2020-02-27] MEDS ORDERED: Enoxaparin 150 MG/1 ML Syringe SUBCUT ONE (13:50)
--- NOTE | 2020-02-27 15:12 | CT ---
CT chest Technique: Multiple axial sections through the chest were obtained. Intravenous contrast was utilized. Study performed as a pulmonary angiogram protocol. Comparison: Prior chest x-ray performed earlier on same day (12:42 PM). Findings: Pulmonary arteries are suboptimally opacified. No discrete filling defects within the main or proximal segmental branches. Pulmonary emboli within the more distal subsegmental or subsegmental pulmonary arteries could easily be missed. Heart is enlarged. Visualized upper abdominal structures show nothing acute. Aorta shows no aneurysm. Mediastinum and hilar regions show no adenopathy or mass. No axillary adenopathy is identified. Azygos lobe is noted. Slight atelectasis is seen posteriorly within both lung bases. No definite acute parenchymal change is seen. Scattered degenerative change is seen throughout the thoracic spine. Lucent line noted within the proximal sternum most likely representing artifact from respiratory misregistration rather than fracture. Impression: 1. Suboptimal opacification of pulmonary arteries. No larger pulmonary embolism within the main or proximal segmental branches. Smaller pulmonary emboli within the distal segmental or subsegmental pulmonary arteries could easily be missed. 2. Lucent line within the proximal sternum believed to be artifact as noted above. 3. Nothing acute is definitely appreciated on CT study of the chest. Diagnostic code #2 Study was dictated in MDT
--- NOTE | 2020-02-27 15:45 | PCM.HP.2 ---
<Lara Ross - Last Filed: 02/27/20 20:20> H&P History of Present Illness - General Date of Service: 02/27/20 Admit Problem/Dx: Admission Diagnosis/Problem Admission Diagnosis/Problem Atrial fibrillation with rapid ventricular response Source of Information: Patient - History of Present Illness Initial Comments - Free Text/Narative: Patient is a 74 old male brought in from clinic across the street from outpatient facility with concerns of elevated heart rate and dyspnea. Patient endorsed worsening dyspnea x2 weeks with elevated heart rate in clinic of 215. EKG found atrial fibrillation w. RVR; patient however does have a history of a trial fibrillation as seen on prior EKGs of 2018. Patient was transferred here to ED department from [facility]. Of note patient used to be on 80 mg of furosemide daily; however was recently s witched to 40 mg torsemide per cardiology but patient was noncompliant with his dosage due to his worsening lower extremity swelling; switched back to his Lasix; last dose was last night 4 PM Anticoagulation: patient is only on aspirin and no other anticoagulation ED course: EKG showed rapid ventricular rate of 163 with mildly prolonged QT interval. No ST elevation appreciated Patient was started on diltiazem bolus plus diltiazem drip Troponin negative Chest x-ray negative for any acute processes CT angio did not present with any signs of PE COVID negative Started on Lovenox/full dose Repeat troponin negative Bedside: Endorsing feeling short of breath with exertion only. No CP, SOB at rest,, palpitations. Does not endorse a history of Afib. - Related Data Allergies/Adverse Reactions: Allergies Allergy/AdvReac Type Severity Reaction Status Date / Time No Known Allergies Allergy Verified 02/28/20 03:15 Home Medications: Home Meds Simvastatin [Zocor] 40 mg PO BEDTIME 09/04/17 [History] allopurinoL [Zyloprim] 300 mg PO DAILY 09/04/17 [History] metFORMIN [Glucophage] 1,000 mg PO BIDMEALS 09/04/17 [History] Furosemide 40 mg PO BID 03/02/18 [History] Losartan [Cozaar] 100 mg PO DAILY 03/02/18 [History] Potassium Chloride [Klor-Con M20] 1 tab PO BID 03/19/18 [History] Albuterol [Ventolin HFA] 2 puff INH Q4H PRN 02/27/20 [History] Budesonide/Formoterol [Symbicort 160-4.5 MCG] 1 puff INH BID 02/27/20 [History] Past Medical History HEENT History: Reports: Cataract Cardiovascular History: Reports: Afib, Heart Failure, High Cholesterol, Hypertension Respiratory History: Reports: Asthma, COPD, Sleep Apnea, SOB Other Respiratory History: on CPAP Gastrointestinal History: Reports: Fecal Incontinence Musculoskeletal History: Reports: Arthritis Other Musculoskeletal History: hx. fx collarbone Psychiatric History: Reports: Anxiety, Depression Endocrine/Metabolic History: Reports: Diabetes, Type II, Obesity/BMI 30+ Dermatologic History: Reports: Cellulitis, Venous Stasis Dermatitis - Infectious Disease History Infectious Disease History: Reports: Chicken Pox - Past Surgical History HEENT Surgical History: Reports: Tonsillectomy Cardiovascular Surgical History: Reports: None Respiratory Surgical History: Reports: None GI Surgical History: Reports: Hernia, Abdominal Musculoskeletal Surgical History: Reports: None Social & Family History - Family History Family Medical History: Noncontributory - Caffeine Use Caffeine Use: Reports: None Caffeine Use Comment: 1-2 diet pop drinks per day H&P Review of Systems - Review of Systems: Review Of Systems: See Below General: Denies: Fatigue HEENT: Reports: No Symptoms Pulmonary: Reports: Shortness of Breath. Denies: Wheezing, Pleuritic Chest Pain, Cough, Sputum, Hemoptysis Cardiovascular: Reports: No Symptoms, Dyspnea on Exertion, Edema. Denies: Chest Pain, Palpitations, Lightheadedness Gastrointestinal: Reports: No Symptoms, Distension. Denies: Constipation, Gely rrhea Genitourinary: Reports: No Symptoms. Denies: Dysuria, Frequency, Burning Musculoskeletal: Reports: No Symptoms Skin: Reports: Other (l/e stasis ) Psychiatric: Reports: No Symptoms Neurological: Reports: No Symptoms. Denies: Confusion, Dizziness, Headache Exam - Exam Exam: See Below - Vital Signs Vital Signs: Last Vital Signs Temp 96.0 F L 02/27/20 12:01 Pulse 98 02/27/20 13:00 Resp 24 H 02/27/20 12:01 BP 143/76 H 02/27/20 13:00 Pulse Ox 93 L 02/27/20 13:00 Weight: 189.148 kg - Exam Quality Assessment: No: Supplemental Oxygen General: Alert, Oriented, Cooperative HEENT: Hearing Intact Neck: Supple, Trachea Midline Lungs: Clear to Auscultation, Other (breathing through pursed lips at times; no increase in respiratory rate however ) Cardiovascular: Regular Rate, Regular Rhythm (obese abdoemen w. obvious lasrge ubilical hernia; no fluid wave appreciated; no tenderness; no flank tenderness ) Back Exam: Normal Inspection, Other (multiple SK ) Extremities: Other (b/l pitting edema...+2-3 ; stasis dermatitis overlying b/l lower extrmeities; sensation and ROM intact... ). No: Christina's Sign Skin: Warm Neurological: Normal Speech Neuro Extensive - Mental Status: Alert, Oriented x3, Normal Mood/Affect - Patient Data Lab Results Last 24 hrs: Laboratory Results - last 24 hr 02/27/20 02/27/20 02/27/20 Range/Units 12:00 12:00 12:00 WBC 12.77 H (4.0-11.0) K/uL RBC 4.86 (4.50-5.90) M/uL Hgb 14.0 (13.0-17.0) g/dL Hct 44.1 (38.0-50.0) % MCV 90.7 (80.0-98.0) fL MCH 28.8 (27.0-32.0) pg MCHC 31.7 (31.0-37.0) g/dL RDW Std Deviation 52.3 (28.0-62.0) fl RDW Coeff of Jane 16 H (11.0-15.0) % Plt Count 189 (150-400) K/uL MPV 9.70 (7.40-12.00) fL Neut % (Auto) 78.8 (48.0-80.0) % Lymph % (Auto) 13.0 L (16.0-40.0) % [place] % (Auto) 7.0 (0.0-15.0) % Eos % (Auto) 1.0 (0.0-7.0) % Baso % (Auto) 0.2 (0.0-1.5) % Neut # (Auto) 10.1 H (1.4-5.7) K/uL Lymph # (Auto) 1.7 (0.6-2.4) K/uL [place] # (Auto) 0.9 H (0.0-0.8) K/uL Eos # (Auto) 0.1 (0.0-0.7) K/uL Baso # (Auto) 0.0 (0.0-0.1) K/uL Nucleated RBC % 0.0 /100WBC Nucleated RBCs # 0 K/uL INR 1.39 Sodium 143 (136-148) mmol/L Potassium 3.8 (3.5-5.1) mmol/L Chloride 105 (98-107) mmol/L Carbon Dioxide 25.4 (21.0-32.0) mmol/L BUN 10 (7.0-18.0) mg/dL Creatinine 0.9 (0.8-1.3) mg/dL Est Cr Clr Drug Dosing 79.04 mL/min Estimated GFR (MDRD) > 60.0 ml/min Glucose 152 H (74-106) mg/dL Calcium 9.3 (8.5-10.1) mg/dL Total Bilirubin 0.5 (0.2-1.0) mg/dL AST 30 (15-37) IU/L ALT 33 (14-63) IU/L Alkaline Phosphatase 70 (46-116) U/L Troponin I < 0.050 (0.000-0.056) ng/mL B-Natriuretic Peptide (<100) PG/ML Total Protein 7.7 (6.4-8.2) g/dL Albumin 4.0 (3.4-5.0) g/dL Globulin 3.7 (2.6-4.0) g/dL Albumin/Globulin Ratio 1.1 (0.9-1.6) 02/27/20 Range/Units 12:00 WBC (4.0-11.0) K/uL RBC (4.50-5.90) M/uL Hgb (13.0-17.0) g/dL Hct (38.0-50.0) % MCV (80.0-98.0) fL MCH (27.0-32.0) pg MCHC (31.0-37.0) g/dL RDW Std Deviation (28.0-62.0) fl RDW Coeff of Jane (11.0-15.0) % Plt Count (150-400) K/uL MPV (7.40-12.00) fL Neut % (Auto) (48.0-80.0) % Lymph % (Auto) (16.0-40.0) % [place] % (Auto) (0.0-15.0) % Eos % (Auto) (0.0-7.0) % Baso % (Auto) (0.0-1.5) % Neut # (Auto) (1.4-5.7) K/uL Lymph # (Auto) (0.6-2.4) K/uL [place] # (Auto) (0.0-0.8) K/uL Eos # (Auto) (0.0-0.7) K/uL Baso # (Auto) (0.0-0.1) K/uL Nucleated RBC % /100WBC Nucleated RBCs # K/uL INR Sodium (136-148) mmol/L Potassium (3.5-5.1) mmol/L Chloride (98-107) mmol/L Carbon Dioxide (21.0-32.0) mmol/L BUN (7.0-18.0) mg/dL Creatinine (0.8-1.3) mg/dL Est Cr Clr Drug Dosing mL/min Estimated GFR (MDRD) ml/min Glucose (74-106) mg/dL Calcium (8.5-10.1) mg/dL Total Bilirubin (0.2-1.0) mg/dL AST (15-37) IU/L ALT (14-63) IU/L Alkaline Phosphatase (46-116) U/L Troponin I (0.000-0.056) ng/mL B-Natriuretic Peptide 95 (<100) PG/ML Total Protein (6.4-8.2) g/dL Albumin (3.4-5.0) g/dL Globulin (2.6-4.0) g/dL Albumin/Globulin Ratio (0.9-1.6) Result Diagrams: 02/27/20 12:00 02/27/20 12:00 Sepsis Event Note - Evaluation Sepsis Screening Result: No Definite Risk - Focused Exam Vital Signs: Vital Signs Temp Pulse Resp BP Pulse Ox 02/27/20 13:00 98 143/76 H 93 L 02/27/20 12:50 117 H 153/86 H 02/27/20 12:35 94 166/108 H 93 L 02/27/20 12:20 119 H 142/85 H 02/27/20 12:17 125 H 172/120 H 02/27/20 12:01 96.0 F L 127 H 24 H 148/109 H 94 L Problem List Initiated/Reviewed/Updated: Yes Orders Last 24hrs: Active Orders 24 hr Category Date Time Status Patient Status [ADT] Routine ADT 02/27/20 15:26 Active Communication Order [RC] STAT Care 02/27/20 13:04 Active EKG Documentation Completion [RC] STAT Care 02/27/20 12:03 Active EKG Documentation Completion [RC] STAT Care 02/27/20 13:43 Active Venous Doppler Lwr Ext Bi [US] Stat Exams 02/27/20 14:35 Ordered CORONAVIRUS COVID-19 MARY [MOLEC] Stat Lab 02/27/20 15:17 Received TROPONIN I [CHEM] Stat Lab 02/27/20 15:20 Received Diltiazem [Cardizem] 100 mg Med 02/27/20 12:15 Active Sodium Chloride 0.9% [Normal Saline] 100 ml IV ASDIRECTED Sodium Chloride 0.9% [Saline Flush] Med 02/27/20 12:02 Active 10 ml FLUSH ASDIRECTED PRN Sodium Chloride 0.9% [Saline Flush] Med 02/27/20 12:02 Active 2.5 ml FLUSH ASDIRECTED PRN Saline Lock Insert [OM.PC] Stat Oth 02/27/20 12:02 Ordered Medication Orders Diltiazem HCl 100 mg/ Sodium (Chloride) 100 mls @ 5 mls/hr IV ASDIRECTED SHRUTHI Last Infusion: 02/27/20 12:58 Dose: 10 mls/hr Documented by: Admin: 02/27/20 12:26 Dose: 5 mls/hr Documented by: GARETT Sodium Chloride (Saline Flush) 10 ml FLUSH ASDIRECTED PRN PRN Reason: Keep Vein Open Last Admin: 02/27/20 12:08 Dose: 10 ml Documented by: IAN Sodium Chloride (Saline Flush) 2.5 ml FLUSH ASDIRECTED PRN PRN Reason: Keep Vein Open Last Admin: 02/27/20 12:08 Dose: 2.5 ml Documented by: IAN Assessment/Plan Comment:: Assessment: 1. Atrial fibrillation with rapid ventricular rate 2. Leukocytosis 3. Hyperglycemia with history of type 2 diabetes 4. Diastolic heart failure. 5. Lower extremity stasis 6. Morbid obesity Plan. Admit to inpatient. Full code. I's and O's : Strict Vitals per routine. Daily weights . Fluid restriction: 1.8 Liters DVT prophylaxis: Full dose Lovenox GI prophylaxis: IV pantoprazole 1. A. fib with RVR; continue with diltiazem drip for now; titrate down; switch over to oral Diltazem once appropriate Echocardiogram ordered; awaiting results Strict I's and O's. Daily weights. CT angio negative for any obvious large PE pt denies history of Afib; is not on any anticoagulation except daily ASA; chart review however says otherwise mentions last time taking his Lasix was yesterday 4 pm 2. Leukocytosis; urinalysis ordered; possibly reactive; chest x-ray negative for acute infiltrates. 3. Diabetes: Sliding scale insulin; hold metformin; tid accu-checks 4.. Heart failure; continue diuresis as needed; was switched to torsemide outpatient; non-compliant continue Lasix for now and reassess 60 mg BID IV; received 80 IV lasix in ED Concerns for component of COPD, OHS and worsening heart failure considered; will continue to monitor and reasses as needed. Most likely a mixed picture; continue to investigate for other acute concerns. Will try to get records from outpatient facility ,[facility] CPAP at night for CAROLIN <Halina Fernandez - Last Filed: 03/01/20 11:30> H&P History of Present Illness - General Admit Problem/Dx: Admission Diagnosis/Problem Admission Diagnosis/Problem Atrial fibrillation with rapid ventricular response - History of Present Illness Initial Comments - Free Text/Narative: I performed a history and physical exam of the patient and discussed management with resident. I have reviewed the residents note and agree with documented findings and plan unless otherwise specified in my note. I Exam - Vital Signs Vital Signs: Last Vital Signs Temp 36.4 C 03/01/20 10:00 Pulse 83 03/01/20 10:49 Resp 20 03/01/20 10:00 BP 120/70 03/01/20 10:49 Pulse Ox 91 L 03/01/20 10:00 - Patient Data Lab Results Last 24 hrs: Laboratory Results - last 24 hr 02/29/20 02/29/20 03/01/20 Range/Units 12:39 17:15 06:00 WBC 9.98 (4.0-11.0) K/uL RBC 4.53 (4.50-5.90) M/uL Hgb 12.8 L (13.0-17.0) g/dL Hct 41.5 (38.0-50.0) % MCV 91.6 (80.0-98.0) fL MCH 28.3 (27.0-32.0) pg MCHC 30.8 L (31.0-37.0) g/dL RDW Std Deviation 54.2 (28.0-62.0) fl RDW Coeff of Jane 16 H (11.0-15.0) % Plt Count 187 (150-400) K/uL MPV 9.50 (7.40-12.00) fL Neut % (Auto) 68.3 (48.0-80.0) % Lymph % (Auto) 21.0 (16.0-40.0) % [place] % (Auto) 8.5 (0.0-15.0) % Eos % (Auto) 2.0 (0.0-7.0) % Baso % (Auto) 0.2 (0.0-1.5) % Neut # (Auto) 6.8 H (1.4-5.7) K/uL Lymph # (Auto) 2.1 (0.6-2.4) K/uL [place] # (Auto) 0.9 H (0.0-0.8) K/uL Eos # (Auto) 0.2 (0.0-0.7) K/uL Baso # (Auto) 0.0 (0.0-0.1) K/uL Nucleated RBC % 0.0 /100WBC Nucleated RBCs # 0 K/uL Sodium (136-148) mmol/L Potassium (3.5-5.1) mmol/L Chloride (98-107) mmol/L Carbon Dioxide (21.0-32.0) mmol/L BUN (7.0-18.0) mg/dL Creatinine (0.8-1.3) mg/dL Est Cr Clr Drug Dosing mL/min Estimated GFR (MDRD) ml/min Glucose (74-106) mg/dL POC Glucose 139 H 142 H (60-110) mg/dL Calcium (8.5-10.1) mg/dL 03/01/20 Range/Units 06:00 WBC (4.0-11.0) K/uL RBC (4.50-5.90) M/uL Hgb (13.0-17.0) g/dL Hct (38.0-50.0) % MCV (80.0-98.0) fL MCH (27.0-32.0) pg MCHC (31.0-37.0) g/dL RDW Std Deviation (28.0-62.0) fl RDW Coeff of Jane (11.0-15.0) % Plt Count (150-400) K/uL MPV (7.40-12.00) fL Neut % (Auto) (48.0-80.0) % Lymph % (Auto) (16.0-40.0) % [place] % (Auto) (0.0-15.0) % Eos % (Auto) (0.0-7.0) % Baso % (Auto) (0.0-1.5) % Neut # (Auto) (1.4-5.7) K/uL Lymph # (Auto) (0.6-2.4) K/uL [place] # (Auto) (0.0-0.8) K/uL Eos # (Auto) (0.0-0.7) K/uL Baso # (Auto) (0.0-0.1) K/uL Nucleated RBC % /100WBC Nucleated RBCs # K/uL Sodium 142 (136-148) mmol/L Potassium 3.6 (3.5-5.1) mmol/L Chloride 104 (98-107) mmol/L Carbon Dioxide 27.1 (21.0-32.0) mmol/L BUN 10 (7.0-18.0) mg/dL Creatinine 0.9 (0.8-1.3) mg/dL Est Cr Clr Drug Dosing 76.69 mL/min Estimated GFR (MDRD) > 60.0 ml/min Glucose 142 H (74-106) mg/dL POC Glucose (60-110) mg/dL Calcium 9.1 (8.5-10.1) mg/dL Result Diagrams: 09/07/20 06:00 03/01/20 06:00 Sepsis Event Note - Focused Exam Vital Signs: Vital Signs Temp Pulse Resp BP BP Pulse Ox 03/01/20 10:49 83 120/70 03/01/20 10:00 36.4 C 20 149/86 H 91 L 03/01/20 08:42 149/86 H 03/01/20 08:39 86 149/86 H 03/01/20 06:00 36.6 C 19 145/88 H 93 L 03/01/20 00:00 36.5 C 19 134/72 93 L - Problem List (1) Atrial fibrillation with RVR SNOMED Code(s): 684062325149883 ICD Code: I48.91 - UNSPECIFIED ATRIAL FIBRILLATION Status: Acute Current Visit: Yes (2) Dyspnea SNOMED Code(s): 466384653 ICD Code: R06.00 - DYSPNEA, UNSPECIFIED Status: Acute Current Visit: Yes (3) CHF (congestive heart failure) SNOMED Code(s): 38124968 ICD Code: I50.9 - HEART FAILURE, UNSPECIFIED Status: Acute Current Visit: No (4) Generalized weakness SNOMED Code(s): 29019829 ICD Code: R53.1 - WEAKNESS Status: Acute Current Visit: No Orders Last 24hrs: Active Orders 24 hr Category Date Time Status Communication Order [RC] DAILY Care 02/29/20 13:19 Active Medication Orders Albuterol (Ventolin Hfa) 0 gm INH Q4H PRN PRN Reason: Shortness of Breath Last Admin: 02/29/20 11:43 Dose: 2 puff Documented by: JOVI Budesonide/Formoterol Fumarate (Symbicort 160-4.5 Mcg) 0 gm INH BID SHRUTHI Last Admin: 03/01/20 09:34 Dose: 2 puff Documented by: Admin: 02/29/20 21:25 Dose: 2 puff Documented by: Admin: 02/29/20 09:08 Dose: 2 puff Documented by: Admin: 02/28/20 21:18 Dose: 1 puff Documented by: Admin: 02/28/20 09:19 Dose: 2 puff Documented by: Admin: 02/27/20 20:15 Dose: Not Given Documented by: Admin: 02/27/20 20:14 Dose: 1 puff Documented by: KRISTEN Diltiazem HCl (Diltiazem) 20 mg IVPUSH ONETIME PRN PRN Reason: Tachycardia Diltiazem HCl (Cardizem Cd) 240 mg PO DAILY [facility] Last Admin: 03/01/20 08:39 Dose: 240 mg Documented by: Admin: 02/29/20 08:54 Dose: Not Given Documented by: Admin: 02/29/20 06:54 Dose: 240 mg Documented by: ALICIA Enoxaparin Sodium (Lovenox) 150 mg SUBCUT Q12H [facility] Last Admin: 03/01/20 08:48 Dose: 150 mg Documented by: Admin: 02/29/20 21:06 Dose: 150 mg Documented by: Admin: 02/29/20 08:55 Dose: 150 mg Documented by: Admin: 02/28/20 20:28 Dose: 150 mg Documented by: Admin: 02/28/20 08:28 Dose: 150 mg Documented by: JOVI Furosemide (Lasix) 60 mg IVPUSH BID [facility] Last Admin: 03/01/20 08:47 Dose: 60 mg Documented by: Admin: 02/29/20 21:07 Dose: 60 mg Documented by: Admin: 02/29/20 09:02 Dose: 60 mg Documented by: Admin: 02/28/20 20:28 Dose: 60 mg Documented by: Admin: 02/28/20 08:17 Dose: 60 mg Documented by: JOVI Pantoprazole Sodium 40 mg/ (Sodium Chloride) 10 mls @ 300 mls/hr IV DAILY [facility] Last Admin: 03/01/20 08:44 Dose: 300 mls/hr Documented by: Infusion: 02/29/20 08:57 Dose: 300 mls/hr Documented by: Admin: 02/29/20 08:55 Dose: 300 mls/hr Documented by: Infusion: 02/28/20 08:25 Dose: 300 mls/hr Documented by: Admin: 02/28/20 08:23 Dose: 300 mls/hr Documented by: Admin: 02/27/20 20:46 Dose: Not Given Documented by: ALICIA Insulin Aspart (Novolog) 0 unit SUBCUT TIDAC SHRUTHI; Protocol Last Admin: 03/01/20 07:36 Dose: Not Given Documented by: Admin: 02/29/20 18:34 Dose: Not Given Documented by: Admin: 02/29/20 12:40 Dose: Not Given Documented by: Admin: 02/29/20 07:44 Dose: Not Given Documented by: Admin: 02/28/20 17:27 Dose: Not Given Documented by: Admin: 02/28/20 13:30 Dose: 2 units Documented by: Admin: 02/28/20 08:16 Dose: Not Given Documented by: Admin: 02/27/20 18:45 Dose: Not Given Documented by: ABEL Losartan Potassium (Cozaar) 100 mg PO DAILY [facility] Last Admin: 03/01/20 08:42 Dose: 100 mg Documented by: Admin: 02/29/20 08:51 Dose: 100 mg Documented by: Admin: 02/28/20 08:21 Dose: 100 mg Documented by: JOVI Nystatin (Nystatin Crm) 1 gm TOP QID PRN PRN Reason: Rash Last Admin: 02/28/20 15:37 Dose: 1 applic Documented by: JOVI Potassium Chloride (Klor-Con M20) 20 meq PO BID [facility] Last Admin: 03/01/20 08:43 Dose: 20 meq Documented by: Admin: 02/29/20 21:06 Dose: 20 meq Documented by: Admin: 02/29/20 08:53 Dose: 20 meq Documented by: Admin: 02/28/20 20:28 Dose: 20 meq Documented by: Admin: 02/28/20 15:31 Dose: 20 meq Documented by: JOVI Simvastatin (Zocor) 40 mg PO BEDTIME [facility] Last Admin: 02/29/20 21:07 Dose: 40 mg Documented by: Admin: 02/28/20 20:27 Dose: 40 mg Documented by: Admin: 02/27/20 21:00 Dose: 40 mg Documented by: ALICIA Sodium Chloride (Saline Flush) 10 ml FLUSH ASDIRECTED PRN PRN Reason: Keep Vein Open Last Admin: 02/27/20 12:08 Dose: 10 ml Documented by: [id number] Sodium Chloride (Saline Flush) 2.5 ml FLUSH ASDIRECTED PRN PRN Reason: Keep Vein Open Last Admin: 02/27/20 12:08 Dose: 2.5 ml Documented by: [id number]
[2020-02-27] MEDS ORDERED: Enoxaparin 150 MG/1 ML Syringe ONE (16:56)
[2020-02-27] MEDS ORDERED: Albuterol 8 GM Inhaler INH PRN (18:23)
--- NOTE | 2020-02-27 18:41 | US ---
Bilateral lower extremity deep venous ultrasound: Duplex and color Doppler evaluation was obtained of the right and left common femoral, superficial femoral, popliteal, posterior tibial and peroneal veins. Comparison: Previous bilateral lower extremity deep venous ultrasound of 12/10/27. Findings: Both peroneal veins are not visualized. Other veins show normal compression and Doppler blood flow. Impression: 1. Both peroneal veins not visualized. 2. Other veins within both lower extremities show no evidence of deep venous thrombosis. Diagnostic code #2 Study was dictated in MDT
[2020-02-27] MEDS: Insulin Aspart 100 Units/ML 3 ML Pen SUBCUT SCH (18:45)
[2020-02-27] MEDS ORDERED: Iopamidol 755 MG/ML 50 ML Bottle IV ONE (18:49)
[2020-02-27] MEDS: Budesonide/Formoterol 160-4.5 MCG/Puff 6 GM Inhaler INH SCH ×2 (20:14→20:15)
[2020-02-27] MEDS: Pantoprazole 40 MG in Sodium Chloride 0.9% 10 ML IV SCH ×2 (20:44→20:46)
[2020-02-27] MEDS: Diltiazem IR 60 MG Tab PO SCH (21:00)
[2020-02-27] MEDS: Simvastatin 20 MG Tab PO SCH (21:00)
[2020-02-28] MEDS ORDERED: Diltiazem IR 30 MG Tab PO ONE (04:09)
[2020-02-28 06:20] LABS: BLOOD UREA NITROGEN,BUN 10 mg/dL (7.0-18.0); CARBON DIOXIDE,CO2 25.9 mmol/L (21.0-32.0); CHLORIDE,CL 104 mmol/L (98-107); GLUCOSE RANDOM 139 mg/dL (74-106); POTASSIUM,K 3.6 mmol/L (3.5-5.1); SODIUM,NA 138 mmol/L (136-148)
[2020-02-28] MEDS: Diltiazem IR 60 MG Tab PO SCH ×3 (06:34→18:06)
[2020-02-28] MEDS: Insulin Aspart 100 Units/ML 3 ML Pen SUBCUT SCH ×3 (08:16→17:27)
[2020-02-28] MEDS: Furosemide 40 MG/4 ML VIAL IVPUSH SCH ×2 (08:17→20:28)
[2020-02-28] MEDS: Losartan 50 MG Tab PO SCH (08:21)
[2020-02-28] MEDS: Pantoprazole 40 MG in Sodium Chloride 0.9% 10 ML IV SCH (08:23)
[2020-02-28] MEDS: Enoxaparin 150 MG/1 ML Syringe SUBCUT SCH ×2 (08:28→20:28)
[2020-02-28] MEDS: Budesonide/Formoterol 160-4.5 MCG/Puff 6 GM Inhaler INH SCH ×2 (09:19→21:18)
[2020-02-28] MEDS ORDERED: Nystatin Crm 30 GM Tube TOP PRN (09:36)
--- NOTE | 2020-02-28 13:56 | PCM.PN ---
- General Info Date of Service: 02/28/20 Admission Dx/Problem (Free Text): Admission Diagnosis/Problem Admission Diagnosis/Problem Atrial fibrillation with rapid ventricular response Subjective Update: seen and examined at bedside, sitting on chair, feels good, no complaints - Review of Systems General: Denies: Fever, Weakness, Fatigue Pulmonary: Denies: Shortness of Breath, Pleuritic Chest Pain Cardiovascular: Reports: Dyspnea on Exertion. Denies: Chest Pain, Palpitations Gastrointestinal: Denies: Abdominal Pain, Constipation, Decreased Appetite Genitourinary: Denies: Dysuria, Frequency, Burning Musculoskeletal: Denies: Neck Pain, Shoulder Pain, Arm Pain Skin: Denies: Cyanosis, Jaundice, Mottled, Pallor - Patient Data Vitals - Most Recent: Last Vital Signs Temp 36.2 C 02/28/20 08:04 Pulse 117 H 02/27/20 17:09 Resp 24 H 02/28/20 13:13 BP 143/84 H 02/28/20 13:13 Pulse Ox 96 02/28/20 13:13 Weight - Most Recent: 189.284 kg I&O - Last 24 Hours: Intake & Output 02/27/20 02/28/20 02/28/20 22:59 06:59 14:59 Intake Total 480 360 Output Total 350 620 Balance 130 -260 Lab Results Last 24 Hours: Laboratory Results - last 24 hr 02/27/20 02/27/20 02/27/20 Range/Units 15:17 15:20 15:20 WBC (4.0-11.0) K/uL RBC (4.50-5.90) M/uL Hgb (13.0-17.0) g/dL Hct (38.0-50.0) % MCV (80.0-98.0) fL MCH (27.0-32.0) pg MCHC (31.0-37.0) g/dL RDW Std Deviation (28.0-62.0) fl RDW Coeff of Jane (11.0-15.0) % Plt Count (150-400) K/uL MPV (7.40-12.00) fL Neut % (Auto) (48.0-80.0) % Lymph % (Auto) (16.0-40.0) % [place] % (Auto) (0.0-15.0) % Eos % (Auto) (0.0-7.0) % Baso % (Auto) (0.0-1.5) % Neut # (Auto) (1.4-5.7) K/uL Lymph # (Auto) (0.6-2.4) K/uL [place] # (Auto) (0.0-0.8) K/uL Eos # (Auto) (0.0-0.7) K/uL Baso # (Auto) (0.0-0.1) K/uL Nucleated RBC % /100WBC Nucleated RBCs # K/uL Sodium (136-148) mmol/L Potassium (3.5-5.1) mmol/L Chloride (98-107) mmol/L Carbon Dioxide (21.0-32.0) mmol/L BUN (7.0-18.0) mg/dL Creatinine (0.8-1.3) mg/dL Est Cr Clr Drug Dosing mL/min Estimated GFR (MDRD) ml/min Glucose (74-106) mg/dL POC Glucose (60-110) mg/dL Calcium (8.5-10.1) mg/dL Phosphorus 3.1 (2.6-4.7) mg/dL Magnesium 2.0 (1.8-2.4) mg/dL Troponin I < 0.050 (0.000-0.056) ng/mL Urine Color Urine Appearance Urine pH (5.0-8.0) Ur Specific [place] (1.001-1.035) Urine Protein (NEGATIVE) mg/dL Urine Glucose (UA) (NEGATIVE) mg/dL Urine Ketones (NEGATIVE) mg/dL Urine Occult Blood (NEGATIVE) Urine Nitrite (NEGATIVE) Urine Bilirubin (NEGATIVE) Urine Urobilinogen (<2.0) EU/dL Ur Leukocyte Esterase (NEGATIVE) Urine RBC (0-2/HPF) Urine WBC (0-5/HPF) Ur Epithelial Cells (NONE-FEW) Urine Bacteria (NEGATIVE) SARS Virus RNA (PCR) NEGATIVE (NEGATIVE) 02/27/20 02/27/20 02/28/20 Range/Units 18:30 19:04 00:15 WBC (4.0-11.0) K/uL RBC (4.50-5.90) M/uL Hgb (13.0-17.0) g/dL Hct (38.0-50.0) % MCV (80.0-98.0) fL MCH (27.0-32.0) pg MCHC (31.0-37.0) g/dL RDW Std Deviation (28.0-62.0) fl RDW Coeff of Jane (11.0-15.0) % Plt Count (150-400) K/uL MPV (7.40-12.00) fL Neut % (Auto) (48.0-80.0) % Lymph % (Auto) (16.0-40.0) % [place] % (Auto) (0.0-15.0) % Eos % (Auto) (0.0-7.0) % Baso % (Auto) (0.0-1.5) % Neut # (Auto) (1.4-5.7) K/uL Lymph # (Auto) (0.6-2.4) K/uL [place] # (Auto) (0.0-0.8) K/uL Eos # (Auto) (0.0-0.7) K/uL Baso # (Auto) (0.0-0.1) K/uL Nucleated RBC % /100WBC Nucleated RBCs # K/uL Sodium (136-148) mmol/L Potassium (3.5-5.1) mmol/L Chloride (98-107) mmol/L Carbon Dioxide (21.0-32.0) mmol/L BUN (7.0-18.0) mg/dL Creatinine (0.8-1.3) mg/dL Est Cr Clr Drug Dosing mL/min Estimated GFR (MDRD) ml/min Glucose (74-106) mg/dL POC Glucose 112 H (60-110) mg/dL Calcium (8.5-10.1) mg/dL Phosphorus (2.6-4.7) mg/dL Magnesium (1.8-2.4) mg/dL Troponin I < 0.050 (0.000-0.056) ng/mL Urine Color YELLOW Urine Appearance CLEAR Urine pH 7.0 (5.0-8.0) Ur Specific [place] 1.015 (1.001-1.035) Urine Protein 100 H (NEGATIVE) mg/dL Urine Glucose (UA) NEGATIVE (NEGATIVE) mg/dL Urine Ketones TRACE H (NEGATIVE) mg/dL Urine Occult Blood NEGATIVE (NEGATIVE) Urine Nitrite NEGATIVE (NEGATIVE) Urine Bilirubin NEGATIVE (NEGATIVE) Urine Urobilinogen 2.0 H (<2.0) EU/dL Ur Leukocyte Esterase NEGATIVE (NEGATIVE) Urine RBC 0-2 (0-2/HPF) Urine WBC 0-2 (0-5/HPF) Ur Epithelial Cells RARE (NONE-FEW) Urine Bacteria RARE (NEGATIVE) SARS Virus RNA (PCR) (NEGATIVE) 02/28/20 02/28/20 02/28/20 Range/Units 05:38 05:38 05:38 WBC 9.22 (4.0-11.0) K/uL RBC 4.55 (4.50-5.90) M/uL Hgb 13.0 (13.0-17.0) g/dL Hct 41.4 (38.0-50.0) % MCV 91.0 (80.0-98.0) fL MCH 28.6 (27.0-32.0) pg MCHC 31.4 (31.0-37.0) g/dL RDW Std Deviation 53.1 (28.0-62.0) fl RDW Coeff of Jane 16 H (11.0-15.0) % Plt Count 174 (150-400) K/uL MPV 9.50 (7.40-12.00) fL Neut % (Auto) 63.9 (48.0-80.0) % Lymph % (Auto) 25.4 (16.0-40.0) % [place] % (Auto) 8.7 (0.0-15.0) % Eos % (Auto) 1.8 (0.0-7.0) % Baso % (Auto) 0.2 (0.0-1.5) % Neut # (Auto) 5.9 H (1.4-5.7) K/uL Lymph # (Auto) 2.3 (0.6-2.4) K/uL [place] # (Auto) 0.8 (0.0-0.8) K/uL Eos # (Auto) 0.2 (0.0-0.7) K/uL Baso # (Auto) 0.0 (0.0-0.1) K/uL Nucleated RBC % 0.0 /100WBC Nucleated RBCs # 0 K/uL Sodium 138 (136-148) mmol/L Potassium 3.6 (3.5-5.1) mmol/L Chloride 104 (98-107) mmol/L Carbon Dioxide 25.9 (21.0-32.0) mmol/L BUN 10 (7.0-18.0) mg/dL Creatinine 0.9 (0.8-1.3) mg/dL Est Cr Clr Drug Dosing 76.69 mL/min Estimated GFR (MDRD) > 60.0 ml/min Glucose 139 H (74-106) mg/dL POC Glucose (60-110) mg/dL Calcium 9.2 (8.5-10.1) mg/dL Phosphorus (2.6-4.7) mg/dL Magnesium 2.2 (1.8-2.4) mg/dL Troponin I (0.000-0.056) ng/mL Urine Color Urine Appearance Urine pH (5.0-8.0) Ur Specific [place] (1.001-1.035) Urine Protein (NEGATIVE) mg/dL Urine Glucose (UA) (NEGATIVE) mg/dL Urine Ketones (NEGATIVE) mg/dL Urine Occult Blood (NEGATIVE) Urine Nitrite (NEGATIVE) Urine Bilirubin (NEGATIVE) Urine Urobilinogen (<2.0) EU/dL Ur Leukocyte Esterase (NEGATIVE) Urine RBC (0-2/HPF) Urine WBC (0-5/HPF) Ur Epithelial Cells (NONE-FEW) Urine Bacteria (NEGATIVE) SARS Virus RNA (PCR) (NEGATIVE) 02/28/20 02/28/20 Range/Units 06:37 11:53 WBC (4.0-11.0) K/uL RBC (4.50-5.90) M/uL Hgb (13.0-17.0) g/dL Hct (38.0-50.0) % MCV (80.0-98.0) fL MCH (27.0-32.0) pg MCHC (31.0-37.0) g/dL RDW Std Deviation (28.0-62.0) fl RDW Coeff of Jane (11.0-15.0) % Plt Count (150-400) K/uL MPV (7.40-12.00) fL Neut % (Auto) (48.0-80.0) % Lymph % (Auto) (16.0-40.0) % [place] % (Auto) (0.0-15.0) % Eos % (Auto) (0.0-7.0) % Baso % (Auto) (0.0-1.5) % Neut # (Auto) (1.4-5.7) K/uL Lymph # (Auto) (0.6-2.4) K/uL [place] # (Auto) (0.0-0.8) K/uL Eos # (Auto) (0.0-0.7) K/uL Baso # (Auto) (0.0-0.1) K/uL Nucleated RBC % /100WBC Nucleated RBCs # K/uL Sodium (136-148) mmol/L Potassium (3.5-5.1) mmol/L Chloride (98-107) mmol/L Carbon Dioxide (21.0-32.0) mmol/L BUN (7.0-18.0) mg/dL Creatinine (0.8-1.3) mg/dL Est Cr Clr Drug Dosing mL/min Estimated GFR (MDRD) ml/min Glucose (74-106) mg/dL POC Glucose 126 H 158 H (60-110) mg/dL Calcium (8.5-10.1) mg/dL Phosphorus (2.6-4.7) mg/dL Magnesium (1.8-2.4) mg/dL Troponin I (0.000-0.056) ng/mL Urine Color Urine Appearance Urine pH (5.0-8.0) Ur Specific [place] (1.001-1.035) Urine Protein (NEGATIVE) mg/dL Urine Glucose (UA) (NEGATIVE) mg/dL Urine Ketones (NEGATIVE) mg/dL Urine Occult Blood (NEGATIVE) Urine Nitrite (NEGATIVE) Urine Bilirubin (NEGATIVE) Urine Urobilinogen (<2.0) EU/dL Ur Leukocyte Esterase (NEGATIVE) Urine RBC (0-2/HPF) Urine WBC (0-5/HPF) Ur Epithelial Cells (NONE-FEW) Urine Bacteria (NEGATIVE) SARS Virus RNA (PCR) (NEGATIVE) Med Orders - Current: Current Medications Albuterol (Ventolin Hfa) 0 gm INH Q4H PRN PRN Reason: Shortness of Breath Budesonide/Formoterol Fumarate (Symbicort 160-4.5 Mcg) 0 gm INH BID [facility] Last Admin: 02/28/20 09:19 Dose: 2 puff Documented by: Diltiazem HCl (Cardizem) 60 mg PO QID [facility] Last Admin: 02/28/20 11:54 Dose: 60 mg Documented by: Enoxaparin Sodium (Lovenox) 150 mg SUBCUT Q12H [facility] Last Admin: 02/28/20 08:28 Dose: 150 mg Documented by: Furosemide (Lasix) 60 mg IVPUSH BID [facility] Last Admin: 02/28/20 08:17 Dose: 60 mg Documented by: Pantoprazole Sodium 40 mg/ (Sodium Chloride) 10 mls @ 300 mls/hr IV DAILY [facility] Last Admin: 02/28/20 08:23 Dose: 300 mls/hr Documented by: Insulin Aspart (Novolog) 0 unit SUBCUT TIDAC [facility]; Protocol Last Admin: 02/28/20 13:30 Dose: 2 units Documented by: Losartan Potassium (Cozaar) 100 mg PO DAILY [facility] Last Admin: 02/28/20 08:21 Dose: 100 mg Documented by: Nystatin (Nystatin Crm) 1 gm TOP QID PRN PRN Reason: Rash Simvastatin (Zocor) 40 mg PO BEDTIME [facility] Last Admin: 02/27/20 21:00 Dose: 40 mg Documented by: Sodium Chloride (Saline Flush) 10 ml FLUSH ASDIRECTED PRN PRN Reason: Keep Vein Open Last Admin: 02/27/20 12:08 Dose: 10 ml Documented by: Sodium Chloride (Saline Flush) 2.5 ml FLUSH ASDIRECTED PRN PRN Reason: Keep Vein Open Last Admin: 02/27/20 12:08 Dose: 2.5 ml Documented by: Discontinued Medications Aspirin (Aspirin) 324 mg PO ONETIME ONE Stop: 02/27/20 13:22 Last Admin: 02/27/20 13:41 Dose: 324 mg Documented by: Diltiazem HCl (Diltiazem) 20 mg IVPUSH ONETIME ONE Stop: 02/27/20 12:04 Last Admin: 02/27/20 12:10 Dose: 20 mg Documented by: Diltiazem HCl (Cardizem) 30 mg PO ONETIME ONE Stop: 02/28/20 04:10 Last Admin: 02/28/20 04:18 Dose: 30 mg Documented by: Enoxaparin Sodium (Lovenox) 190 mg 1 mg/kg (190 mg) SUBCUT ONETIME ONE Stop: 02/27/20 13:51 Last Admin: 02/27/20 16:58 Dose: 190 mg Documented by: Enoxaparin Sodium (Lovenox) Confirm Administered Dose 300 mg .ROUTE .STK-MED ONE Stop: 02/27/20 16:57 Last Admin: 02/27/20 19:32 Dose: Not Given Documented by: Diltiazem HCl 100 mg/ Sodium (Chloride) 100 mls @ 5 mls/hr IV ASDIRECTED SHRUTHI Last Infusion: 02/27/20 12:58 Dose: 10 mls/hr Documented by: Furosemide 80 mg/ Sodium (Chloride) 58 mls @ 100 mls/hr IV ONETIME ONE Stop: 02/27/20 13:55 Last Admin: 02/27/20 13:30 Dose: Not Given Documented by: Iopamidol (Isovue-370 (76%)) 50 ml IV ONETIME ONE Stop: 02/27/20 18:50 Last Admin: 02/27/20 18:50 Dose: 50 ml Documented by: - Exam General: Alert, Oriented Neck: Supple, Trachea Midline Lungs: Clear to Auscultation, Normal Respiratory Effort Cardiovascular: Regular Rate, Irregular Rhythm. No: Regular Rhythm GI/Abdominal Exam: Normal Bowel Sounds, Soft, Distended, Hernia. No: No Distention Extremities: Non-Tender, Pedal Edema. No: No Pedal Edema Sepsis Event Note - Evaluation Sepsis Screening Result: No Definite Risk - Focused Exam Vital Signs: Vital Signs Temp Resp BP BP Pulse Ox 02/28/20 13:13 24 H 143/84 H 96 02/28/20 12:14 12 157/83 H 93 L 02/28/20 11:15 14 132/75 91 L 02/28/20 10:14 22 H 134/80 92 L 02/28/20 09:14 19 160/92 H 94 L 02/28/20 08:21 150/86 H 02/28/20 08:04 36.2 C 13 150/84 H 93 L 02/28/20 07:00 18 142/80 H 93 L 02/28/20 06:00 16 151/73 H 95 02/28/20 05:00 16 160/92 H 95 02/28/20 04:00 36.5 C 18 172/93 H 93 L 02/28/20 03:00 16 162/90 H 92 L 02/28/20 02:00 17 164/89 H 93 L - Problem List & Annotations (1) Atrial fibrillation with RVR SNOMED Code(s): 043989386436047 Code(s): I48.91 - UNSPECIFIED ATRIAL FIBRILLATION Status: Acute Current Visit: Yes (2) Dyspnea SNOMED Code(s): 627369545 Code(s): R06.00 - DYSPNEA, UNSPECIFIED Status: Acute Current Visit: Yes (3) CHF (congestive heart failure) SNOMED Code(s): 95757133 Code(s): I50.9 - HEART FAILURE, UNSPECIFIED Status: Acute Current Visit: No (4) Generalized weakness SNOMED Code(s): 19635942 Code(s): R53.1 - WEAKNESS Status: Acute Current Visit: No - Problem List Review Problem List Initiated/Reviewed/Updated: Yes - My Orders Last 24 Hours: My Active Orders 02/27/20 20:45 Diltiazem IR [Cardizem] 60 mg PO QID 02/28/20 12:26 Communication Order [RC] DAILY - Plan Plan:: Assessment: 1. Atrial fibrillation with rapid ventricular rate 2. Leukocytosis 3. Hyperglycemia with history of type 2 diabetes 4. Diastolic heart failure. 5. Lower extremity stasis 6. Morbid obesity Plan. Full code. I's and O's : Strict Vitals per routine. Daily weights . Fluid restriction: 1.8 Liters DVT prophylaxis: Full dose Lovenox GI prophylaxis: IV pantoprazole 1. A. fib with RVR; off the diltiazem drip for now; switched over to oral Diltazem Echocardiogram ordered; awaiting results Strict I's and O's. Daily weights. CT angio negative for any obvious large PE cont anticoagulation with Lovenox, switch to oral upon dc 2. Leukocytosis; resolved 3. Diabetes: Sliding scale insulin; hold metformin; tid accu-checks, check HbA1c 4.. Heart failure; continue diuresis as needed; was switched to torsemide outpatient; non-compliant continue Lasix for now and reassess 60 mg BID IV; received 80 IV lasix in ED Concerns for component of COPD, OHS and worsening heart failure considered; will continue to monitor and reasses as needed. Will try to get records from outpatient facility [facility]. f/u on 2D echo CPAP at night for CAROLIN
[2020-02-28 15:28] LABS: HEMOGLOBIN A1C 7.2 % (4.5-6.2)
[2020-02-28] MEDS: Potassium Chloride 20 MEQ Tab.ER PO SCH ×2 (15:31→20:28)
[2020-02-28] MEDS ORDERED: Diltiazem 25 MG/5 ML SDV IVPUSH PRN (16:13)
[2020-02-28] MEDS: Simvastatin 20 MG Tab PO SCH (20:27)
[2020-02-29] MEDS ORDERED: Diltiazem IR 60 MG Tab PO ONE
[2020-02-29 06:16] LABS: BLOOD UREA NITROGEN,BUN 10 mg/dL (7.0-18.0); CARBON DIOXIDE,CO2 26.9 mmol/L (21.0-32.0); CHLORIDE,CL 105 mmol/L (98-107); GLUCOSE RANDOM 144 mg/dL (74-106); POTASSIUM,K 3.5 mmol/L (3.5-5.1); SODIUM,NA 142 mmol/L (136-148)
[2020-02-29] MEDS: Diltiazem 120 MG Cap.CD PO SCH ×2 (06:54→08:54)
[2020-02-29] MEDS: Insulin Aspart 100 Units/ML 3 ML Pen SUBCUT SCH ×3 (07:44→18:34)
[2020-02-29] MEDS: Losartan 50 MG Tab PO SCH (08:51)
[2020-02-29] MEDS: Potassium Chloride 20 MEQ Tab.ER PO SCH ×2 (08:53→21:06)
[2020-02-29] MEDS: Pantoprazole 40 MG in Sodium Chloride 0.9% 10 ML IV SCH (08:55)
[2020-02-29] MEDS: Enoxaparin 150 MG/1 ML Syringe SUBCUT SCH ×2 (08:55→21:06)
[2020-02-29] MEDS ORDERED: Diltiazem 120 MG Cap.CD PO SCH (09:00)
[2020-02-29] MEDS ORDERED: Diltiazem IR 60 MG Tab PO SCH (09:00)
[2020-02-29] MEDS: Furosemide 40 MG/4 ML VIAL IVPUSH SCH ×2 (09:02→21:07)
[2020-02-29] MEDS: Budesonide/Formoterol 160-4.5 MCG/Puff 6 GM Inhaler INH SCH ×2 (09:08→21:25)
--- NOTE | 2020-02-29 09:41 | PCM.PN ---
<Lara Ross - Last Filed: 02/29/20 12:50> - General Info Date of Service: 02/29/20 Subjective Update: Bedside: no new complaints. Mentions feeling less SOB w. increasing diuresis. Denies any CP, SOB. Mentions lower extremity skin breakdown is nominal. Functional Status: Reports: Pain Controlled - Review of Systems General: Reports: No Symptoms HEENT: Reports: No Symptoms Pulmonary: Reports: No Symptoms Cardiovascular: Reports: Dyspnea on Exertion. Denies: Chest Pain, Palpitations Gastrointestinal: Reports: No Symptoms. Denies: Diarrhea, Nausea, Vomiting Genitourinary: Reports: No Symptoms Musculoskeletal: Reports: No Symptoms Skin: Reports: Other (l/e skin breakdown) Neurological: Reports: No Symptoms Psychiatric: Reports: No Symptoms - Patient Data Vitals - Most Recent: Last Vital Signs Temp 97.7 F 02/29/20 08:20 Pulse 81 02/29/20 06:54 Resp 20 02/29/20 08:20 BP 130/77 02/29/20 08:51 Pulse Ox 93 L 02/29/20 08:20 Weight - Most Recent: 185.655 kg I&O - Last 24 Hours: Intake & Output 02/28/20 02/29/20 02/29/20 22:59 06:59 14:59 Intake Total 952 680 Output Total 1295 1660 Balance -343 -980 Lab Results Last 24 Hours: Laboratory Results - last 24 hr 02/28/20 02/28/20 02/28/20 Range/Units 05:38 05:38 11:53 WBC (4.0-11.0) K/uL RBC (4.50-5.90) M/uL Hgb (13.0-17.0) g/dL Hct (38.0-50.0) % MCV (80.0-98.0) fL MCH (27.0-32.0) pg MCHC (31.0-37.0) g/dL RDW Std Deviation (28.0-62.0) fl RDW Coeff of Jane (11.0-15.0) % Plt Count (150-400) K/uL MPV (7.40-12.00) fL Neut % (Auto) (48.0-80.0) % Lymph % (Auto) (16.0-40.0) % [place] % (Auto) (0.0-15.0) % Eos % (Auto) (0.0-7.0) % Baso % (Auto) (0.0-1.5) % Neut # (Auto) (1.4-5.7) K/uL Lymph # (Auto) (0.6-2.4) K/uL [place] # (Auto) (0.0-0.8) K/uL Eos # (Auto) (0.0-0.7) K/uL Baso # (Auto) (0.0-0.1) K/uL Nucleated RBC % /100WBC Nucleated RBCs # K/uL Sodium (136-148) mmol/L Potassium (3.5-5.1) mmol/L Chloride (98-107) mmol/L Carbon Dioxide (21.0-32.0) mmol/L BUN (7.0-18.0) mg/dL Creatinine (0.8-1.3) mg/dL Est Cr Clr Drug Dosing mL/min Estimated GFR (MDRD) ml/min Glucose (74-106) mg/dL POC Glucose 158 H (60-110) mg/dL Hemoglobin A1c 7.2 H (4.5-6.2) % Calcium (8.5-10.1) mg/dL TSH 3rd Generation 4.56 H (0.36-3.74) uIU/mL 02/28/20 02/29/20 02/29/20 Range/Units 17:07 05:38 05:38 WBC 9.26 (4.0-11.0) K/uL RBC 4.43 L (4.50-5.90) M/uL Hgb 12.6 L (13.0-17.0) g/dL Hct 40.5 (38.0-50.0) % MCV 91.4 (80.0-98.0) fL MCH 28.4 (27.0-32.0) pg MCHC 31.1 (31.0-37.0) g/dL RDW Std Deviation 53.8 (28.0-62.0) fl RDW Coeff of Jane 16 H (11.0-15.0) % Plt Count 183 (150-400) K/uL MPV 10.00 (7.40-12.00) fL Neut % (Auto) 68.4 (48.0-80.0) % Lymph % (Auto) 21.1 (16.0-40.0) % [place] % (Auto) 8.1 (0.0-15.0) % Eos % (Auto) 2.2 (0.0-7.0) % Baso % (Auto) 0.2 (0.0-1.5) % Neut # (Auto) 6.3 H (1.4-5.7) K/uL Lymph # (Auto) 2.0 (0.6-2.4) K/uL [place] # (Auto) 0.8 (0.0-0.8) K/uL Eos # (Auto) 0.2 (0.0-0.7) K/uL Baso # (Auto) 0.0 (0.0-0.1) K/uL Nucleated RBC % 0.0 /100WBC Nucleated RBCs # 0 K/uL Sodium 142 (136-148) mmol/L Potassium 3.5 (3.5-5.1) mmol/L Chloride 105 (98-107) mmol/L Carbon Dioxide 26.9 (21.0-32.0) mmol/L BUN 10 (7.0-18.0) mg/dL Creatinine 0.9 (0.8-1.3) mg/dL Est Cr Clr Drug Dosing 76.69 mL/min Estimated GFR (MDRD) > 60.0 ml/min Glucose 144 H (74-106) mg/dL POC Glucose 122 H (60-110) mg/dL Hemoglobin A1c (4.5-6.2) % Calcium 9.2 (8.5-10.1) mg/dL TSH 3rd Generation (0.36-3.74) uIU/mL 02/29/20 Range/Units 05:42 WBC (4.0-11.0) K/uL RBC (4.50-5.90) M/uL Hgb (13.0-17.0) g/dL Hct (38.0-50.0) % MCV (80.0-98.0) fL MCH (27.0-32.0) pg MCHC (31.0-37.0) g/dL RDW Std Deviation (28.0-62.0) fl RDW Coeff of Jane (11.0-15.0) % Plt Count (150-400) K/uL MPV (7.40-12.00) fL Neut % (Auto) (48.0-80.0) % Lymph % (Auto) (16.0-40.0) % [place] % (Auto) (0.0-15.0) % Eos % (Auto) (0.0-7.0) % Baso % (Auto) (0.0-1.5) % Neut # (Auto) (1.4-5.7) K/uL Lymph # (Auto) (0.6-2.4) K/uL [place] # (Auto) (0.0-0.8) K/uL Eos # (Auto) (0.0-0.7) K/uL Baso # (Auto) (0.0-0.1) K/uL Nucleated RBC % /100WBC Nucleated RBCs # K/uL Sodium (136-148) mmol/L Potassium (3.5-5.1) mmol/L Chloride (98-107) mmol/L Carbon Dioxide (21.0-32.0) mmol/L BUN (7.0-18.0) mg/dL Creatinine (0.8-1.3) mg/dL Est Cr Clr Drug Dosing mL/min Estimated GFR (MDRD) ml/min Glucose (74-106) mg/dL POC Glucose 145 H (60-110) mg/dL Hemoglobin A1c (4.5-6.2) % Calcium (8.5-10.1) mg/dL TSH 3rd Generation (0.36-3.74) uIU/mL Med Orders - Current: Current Medications Albuterol (Ventolin Hfa) 0 gm INH Q4H PRN PRN Reason: Shortness of Breath Budesonide/Formoterol Fumarate (Symbicort 160-4.5 Mcg) 0 gm INH BID [facility] Last Admin: 02/29/20 09:08 Dose: 2 puff Documented by: Diltiazem HCl (Diltiazem) 20 mg IVPUSH ONETIME PRN PRN Reason: Tachycardia Diltiazem HCl (Cardizem Cd) 240 mg PO DAILY [facility] Last Admin: 02/29/20 08:54 Dose: Not Given Documented by: Enoxaparin Sodium (Lovenox) 150 mg SUBCUT Q12H [facility] Last Admin: 02/29/20 08:55 Dose: 150 mg Documented by: Furosemide (Lasix) 60 mg IVPUSH BID [facility] Last Admin: 02/29/20 09:02 Dose: 60 mg Documented by: Pantoprazole Sodium 40 mg/ (Sodium Chloride) 10 mls @ 300 mls/hr IV DAILY [facility] Last Admin: 02/29/20 08:55 Dose: 300 mls/hr Documented by: Insulin Aspart (Novolog) 0 unit SUBCUT TIDAC [facility]; Protocol Last Admin: 02/29/20 07:44 Dose: Not Given Documented by: Losartan Potassium (Cozaar) 100 mg PO DAILY [facility] Last Admin: 02/29/20 08:51 Dose: 100 mg Documented by: Nystatin (Nystatin Crm) 1 gm TOP QID PRN PRN Reason: Rash Last Admin: 02/28/20 15:37 Dose: 1 applic Documented by: Potassium Chloride (Klor-Con M20) 20 meq PO BID [facility] Last Admin: 02/29/20 08:53 Dose: 20 meq Documented by: Simvastatin (Zocor) 40 mg PO BEDTIME [facility] Last Admin: 02/28/20 20:27 Dose: 40 mg Documented by: Sodium Chloride (Saline Flush) 10 ml FLUSH ASDIRECTED PRN PRN Reason: Keep Vein Open Last Admin: 02/27/20 12:08 Dose: 10 ml Documented by: Sodium Chloride (Saline Flush) 2.5 ml FLUSH ASDIRECTED PRN PRN Reason: Keep Vein Open Last Admin: 02/27/20 12:08 Dose: 2.5 ml Documented by: Discontinued Medications Aspirin (Aspirin) 324 mg PO ONETIME ONE Stop: 02/27/20 13:22 Last Admin: 02/27/20 13:41 Dose: 324 mg Documented by: Diltiazem HCl (Diltiazem) 20 mg IVPUSH ONETIME ONE Stop: 02/27/20 12:04 Last Admin: 02/27/20 12:10 Dose: 20 mg Documented by: Diltiazem HCl (Cardizem) 60 mg PO QID [facility] Last Admin: 02/28/20 18:06 Dose: 60 mg Documented by: Diltiazem HCl (Cardizem) 30 mg PO ONETIME ONE Stop: 02/28/20 04:10 Last Admin: 02/28/20 04:18 Dose: 30 mg Documented by: Diltiazem HCl (Cardizem) 240 mg PO Q24H [facility] Diltiazem HCl (Cardizem Cd) 240 mg PO DAILY [facility] Diltiazem HCl (Cardizem) 60 mg PO ONETIME ONE Stop: 02/29/20 00:01 Last Admin: 02/28/20 23:58 Dose: 60 mg Documented by: Enoxaparin Sodium (Lovenox) 190 mg 1 mg/kg (190 mg) SUBCUT ONETIME ONE Stop: 02/27/20 13:51 Last Admin: 02/27/20 16:58 Dose: 190 mg Documented by: Enoxaparin Sodium (Lovenox) Confirm Administered Dose 300 mg .ROUTE .STK-MED ONE Stop: 02/27/20 16:57 Last Admin: 02/27/20 19:32 Dose: Not Given Documented by: Diltiazem HCl 100 mg/ Sodium (Chloride) 100 mls @ 5 mls/hr IV ASDIRECTED [facility] Last Infusion: 02/27/20 12:58 Dose: 10 mls/hr Documented by: Furosemide 80 mg/ Sodium (Chloride) 58 mls @ 100 mls/hr IV ONETIME ONE Stop: 02/27/20 13:55 Last Admin: 02/27/20 13:30 Dose: Not Given Documented by: Iopamidol (Isovue-370 (76%)) 50 ml IV ONETIME ONE Stop: 02/27/20 18:50 Last Admin: 02/27/20 18:50 Dose: 50 ml Documented by: - Exam Quality Assessment: No: Supplemental Oxygen General: Alert, Oriented, Cooperative, No Acute Distress HEENT: Pupils Equal, EOMI Neck: Supple Lungs: Clear to Auscultation, Normal Respiratory Effort Cardiovascular: Regular Rate, Irregular Rhythm GI/Abdominal Exam: Soft, Other (obese; obvious umbilical hernia; no fluid wave apprecaited ) Back Exam: Normal Inspection Extremities: Other (l/e edema: interval imrprovement since admission. Chronic wound of right lower extremity; wet; no surrounding erythema; non-tender... DP intaact) Skin: Warm Neurological: No New Focal Deficit Psy/Mental Status: Alert Sepsis Event Note - Evaluation Sepsis Screening Result: No Definite Risk - Focused Exam Vital Signs: Vital Signs Temp Pulse Resp BP BP Pulse Ox 02/29/20 08:51 130/77 02/29/20 08:20 97.7 F 20 134/89 93 L 02/29/20 06:54 81 135/90 02/29/20 04:00 96.8 F L 16 134/71 94 L 02/29/20 00:00 97.3 F 16 136/74 94 L - Problem List Review Problem List Initiated/Reviewed/Updated: Yes - My Orders Last 24 Hours: My Active Orders 02/28/20 09:00 Enoxaparin [Lovenox] 150 mg SUBCUT Q12H Furosemide [Lasix] 60 mg IVPUSH BID Losartan [Cozaar] 100 mg PO DAILY 02/29/20 09:10 Communication Order [RC] DAILY 03/01/20 05:11 BMP [BASIC METABOLIC PANEL,BMP] [CHEM] AM CBC WITH AUTO DIFF [HEME] AM - Plan Plan:: Assessment: 1. Atrial fibrillation with rapid ventricular rate 2. Leukocytosis 3. Hyperglycemia with history of type 2 diabetes 4. Diastolic heart failure. 5. Lower extremity stasis 6. Morbid obesity Plan. Full code. I's and O's : Strict Vitals per routine. Daily weights . Fluid restriction: 1.8 Liters DVT prophylaxis: Full dose Lovenox GI prophylaxis: IV pantoprazole 1. A. fib with RVR; off the diltiazem drip for now; switched over to oral Diltazem . Oral diltiazem 240 CD daily Echocardiogram ordered; pending Strict I's and O's. Daily weights. CT angio negative for any obvious large PE cont anticoagulation with Lovenox, switch to oral upon dc 2. Leukocytosis; resolved 3. Diabetes: Sliding scale insulin; hold metformin; tid accu-checks, check HbA1c 4.. Heart failure; continue diuresis as needed; was switched to torsemide outpatient; non-compliant continue Lasix for now and reassess 60 mg BID IV; received 80 IV lasix in ED Concerns for component of COPD, OHS and worsening heart failure considered; will continue to monitor and reassess as needed. Will try to get records from outpatient facility ,[facility]. f/u on 2D echo Elevated TSH: appropriate for age but in light of Afib; may consider outpatient need for further evaluation CPAP at night for CAROLIN Encourage ambulation ; can consider pt/ot evaluation if still here on Sunday. May also consider starting low dose BB, Metoprolol 25 daily for HF concerns; awaiting Echo however. <Halina Fernandez - Last Filed: 03/01/20 11:41> - General Info Subjective Update: I have seen and evaluated the patient and agree with the residents note unless specified in my note - Patient Data Vitals - Most Recent: Last Vital Signs Temp 36.4 C 03/01/20 10:00 Pulse 83 03/01/20 10:49 Resp 20 03/01/20 10:00 BP 120/70 03/01/20 10:49 Pulse Ox 91 L 03/01/20 10:00 I&O - Last 24 Hours: Intake & Output 02/29/20 03/01/20 03/01/20 22:59 06:59 14:59 Intake Total 832 680 230 Output Total 1750 1695 600 Balance -918 -1015 -370 Lab Results Last 24 Hours: Laboratory Results - last 24 hr 02/29/20 02/29/20 03/01/20 Range/Units 12:39 17:15 06:00 WBC 9.98 (4.0-11.0) K/uL RBC 4.53 (4.50-5.90) M/uL Hgb 12.8 L (13.0-17.0) g/dL Hct 41.5 (38.0-50.0) % MCV 91.6 (80.0-98.0) fL MCH 28.3 (27.0-32.0) pg MCHC 30.8 L (31.0-37.0) g/dL RDW Std Deviation 54.2 (28.0-62.0) fl RDW Coeff of Jane 16 H (11.0-15.0) % Plt Count 187 (150-400) K/uL MPV 9.50 (7.40-12.00) fL Neut % (Auto) 68.3 (48.0-80.0) % Lymph % (Auto) 21.0 (16.0-40.0) % [place] % (Auto) 8.5 (0.0-15.0) % Eos % (Auto) 2.0 (0.0-7.0) % Baso % (Auto) 0.2 (0.0-1.5) % Neut # (Auto) 6.8 H (1.4-5.7) K/uL Lymph # (Auto) 2.1 (0.6-2.4) K/uL [place] # (Auto) 0.9 H (0.0-0.8) K/uL Eos # (Auto) 0.2 (0.0-0.7) K/uL Baso # (Auto) 0.0 (0.0-0.1) K/uL Nucleated RBC % 0.0 /100WBC Nucleated RBCs # 0 K/uL Sodium (136-148) mmol/L Potassium (3.5-5.1) mmol/L Chloride (98-107) mmol/L Carbon Dioxide (21.0-32.0) mmol/L BUN (7.0-18.0) mg/dL Creatinine (0.8-1.3) mg/dL Est Cr Clr Drug Dosing mL/min Estimated GFR (MDRD) ml/min Glucose (74-106) mg/dL POC Glucose 139 H 142 H (60-110) mg/dL Calcium (8.5-10.1) mg/dL 03/01/20 Range/Units 06:00 WBC (4.0-11.0) K/uL RBC (4.50-5.90) M/uL Hgb (13.0-17.0) g/dL Hct (38.0-50.0) % MCV (80.0-98.0) fL MCH (27.0-32.0) pg MCHC (31.0-37.0) g/dL RDW Std Deviation (28.0-62.0) fl RDW Coeff of Jane (11.0-15.0) % Plt Count (150-400) K/uL MPV (7.40-12.00) fL Neut % (Auto) (48.0-80.0) % Lymph % (Auto) (16.0-40.0) % [place] % (Auto) (0.0-15.0) % Eos % (Auto) (0.0-7.0) % Baso % (Auto) (0.0-1.5) % Neut # (Auto) (1.4-5.7) K/uL Lymph # (Auto) (0.6-2.4) K/uL [place] # (Auto) (0.0-0.8) K/uL Eos # (Auto) (0.0-0.7) K/uL Baso # (Auto) (0.0-0.1) K/uL Nucleated RBC % /100WBC Nucleated RBCs # K/uL Sodium 142 (136-148) mmol/L Potassium 3.6 (3.5-5.1) mmol/L Chloride 104 (98-107) mmol/L Carbon Dioxide 27.1 (21.0-32.0) mmol/L BUN 10 (7.0-18.0) mg/dL Creatinine 0.9 (0.8-1.3) mg/dL Est Cr Clr Drug Dosing 76.69 mL/min Estimated GFR (MDRD) > 60.0 ml/min Glucose 142 H (74-106) mg/dL POC Glucose (60-110) mg/dL Calcium 9.1 (8.5-10.1) mg/dL Med Orders - Current: Current Medications Albuterol (Ventolin Hfa) 0 gm INH Q4H PRN PRN Reason: Shortness of Breath Last Admin: 02/29/20 11:43 Dose: 2 puff Documented by: Budesonide/Formoterol Fumarate (Symbicort 160-4.5 Mcg) 0 gm INH BID [facility] Last Admin: 03/01/20 09:34 Dose: 2 puff Documented by: Diltiazem HCl (Diltiazem) 20 mg IVPUSH ONETIME PRN PRN Reason: Tachycardia Diltiazem HCl (Cardizem Cd) 240 mg PO DAILY [facility] Last Admin: 03/01/20 08:39 Dose: 240 mg Documented by: Enoxaparin Sodium (Lovenox) 150 mg SUBCUT Q12H [facility] Last Admin: 03/01/20 08:48 Dose: 150 mg Documented by: Furosemide (Lasix) 60 mg IVPUSH BID [facility] Last Admin: 03/01/20 08:47 Dose: 60 mg Documented by: Pantoprazole Sodium 40 mg/ (Sodium Chloride) 10 mls @ 300 mls/hr IV DAILY [facility] Last Admin: 03/01/20 08:44 Dose: 300 mls/hr Documented by: Insulin Aspart (Novolog) 0 unit SUBCUT TIDAC [facility]; Protocol Last Admin: 03/01/20 07:36 Dose: Not Given Documented by: Losartan Potassium (Cozaar) 100 mg PO DAILY [facility] Last Admin: 03/01/20 08:42 Dose: 100 mg Documented by: Nystatin (Nystatin Crm) 1 gm TOP QID PRN PRN Reason: Rash Last Admin: 02/28/20 15:37 Dose: 1 applic Documented by: Potassium Chloride (Klor-Con M20) 20 meq PO BID [facility] Last Admin: 03/01/20 08:43 Dose: 20 meq Documented by: Simvastatin (Zocor) 40 mg PO BEDTIME [facility] Last Admin: 02/29/20 21:07 Dose: 40 mg Documented by: Sodium Chloride (Saline Flush) 10 ml FLUSH ASDIRECTED PRN PRN Reason: Keep Vein Open Last Admin: 02/27/20 12:08 Dose: 10 ml Documented by: Sodium Chloride (Saline Flush) 2.5 ml FLUSH ASDIRECTED PRN PRN Reason: Keep Vein Open Last Admin: 02/27/20 12:08 Dose: 2.5 ml Documented by: Discontinued Medications Aspirin (Aspirin) 324 mg PO ONETIME ONE Stop: 02/27/20 13:22 Last Admin: 02/27/20 13:41 Dose: 324 mg Documented by: Diltiazem HCl (Diltiazem) 20 mg IVPUSH ONETIME ONE Stop: 02/27/20 12:04 Last Admin: 02/27/20 12:10 Dose: 20 mg Documented by: Diltiazem HCl (Cardizem) 60 mg PO QID [facility] Last Admin: 02/28/20 18:06 Dose: 60 mg Documented by: Diltiazem HCl (Cardizem) 30 mg PO ONETIME ONE Stop: 02/28/20 04:10 Last Admin: 02/28/20 04:18 Dose: 30 mg Documented by: Diltiazem HCl (Cardizem) 240 mg PO Q24H [facility] Diltiazem HCl (Cardizem Cd) 240 mg PO DAILY [facility] Diltiazem HCl (Cardizem) 60 mg PO ONETIME ONE Stop: 02/29/20 00:01 Last Admin: 02/28/20 23:58 Dose: 60 mg Documented by: Enoxaparin Sodium (Lovenox) 190 mg 1 mg/kg (190 mg) SUBCUT ONETIME ONE Stop: 02/27/20 13:51 Last Admin: 02/27/20 16:58 Dose: 190 mg Documented by: Enoxaparin Sodium (Lovenox) Confirm Administered Dose 300 mg .ROUTE .STK-MED ONE Stop: 02/27/20 16:57 Last Admin: 02/27/20 19:32 Dose: Not Given Documented by: Diltiazem HCl 100 mg/ Sodium (Chloride) 100 mls @ 5 mls/hr IV ASDIRECTED [facility] Last Infusion: 02/27/20 12:58 Dose: 10 mls/hr Documented by: Furosemide 80 mg/ Sodium (Chloride) 58 mls @ 100 mls/hr IV ONETIME ONE Stop: 02/27/20 13:55 Last Admin: 02/27/20 13:30 Dose: Not Given Documented by: Iopamidol (Isovue-370 (76%)) 50 ml IV ONETIME ONE Stop: 02/27/20 18:50 Last Admin: 02/27/20 18:50 Dose: 50 ml Documented by: Metoprolol Succinate (Toprol Xl) 25 mg PO ONETIME ONE Stop: 03/01/20 10:02 Last Admin: 03/01/20 10:49 Dose: 25 mg Documented by: Sepsis Event Note - Focused Exam Vital Signs: Vital Signs Temp Pulse Resp BP BP Pulse Ox 03/01/20 10:49 83 120/70 03/01/20 10:00 36.4 C 20 149/86 H 91 L 03/01/20 08:42 149/86 H 03/01/20 08:39 86 149/86 H 03/01/20 06:00 36.6 C 19 145/88 H 93 L 03/01/20 00:00 36.5 C 19 134/72 93 L - Problem List & Annotations (1) Atrial fibrillation with RVR SNOMED Code(s): 617353069738299 Code(s): I48.91 - UNSPECIFIED ATRIAL FIBRILLATION Status: Acute Current Visit: Yes (2) Dyspnea SNOMED Code(s): 289776856 Code(s): R06.00 - DYSPNEA, UNSPECIFIED Status: Acute Current Visit: Yes (3) CHF (congestive heart failure) SNOMED Code(s): 81020742 Code(s): I50.9 - HEART FAILURE, UNSPECIFIED Status: Acute Current Visit: No (4) Generalized weakness SNOMED Code(s): 30336646 Code(s): R53.1 - WEAKNESS Status: Acute Current Visit: No
[2020-02-29] MEDS: Simvastatin 20 MG Tab PO SCH (21:07)
[2020-03-01 06:41] LABS: BLOOD UREA NITROGEN,BUN 10 mg/dL (7.0-18.0); CARBON DIOXIDE,CO2 27.1 mmol/L (21.0-32.0); CHLORIDE,CL 104 mmol/L (98-107); GLUCOSE RANDOM 142 mg/dL (74-106); POTASSIUM,K 3.6 mmol/L (3.5-5.1); SODIUM,NA 142 mmol/L (136-148)
[2020-03-01] MEDS: Insulin Aspart 100 Units/ML 3 ML Pen SUBCUT SCH ×3 (07:36→17:24)
[2020-03-01] MEDS: Diltiazem 120 MG Cap.CD PO SCH (08:39)
[2020-03-01] MEDS: Losartan 50 MG Tab PO SCH (08:42)
[2020-03-01] MEDS: Potassium Chloride 20 MEQ Tab.ER PO SCH ×2 (08:43→20:46)
[2020-03-01] MEDS: Pantoprazole 40 MG in Sodium Chloride 0.9% 10 ML IV SCH (08:44)
[2020-03-01] MEDS: Furosemide 40 MG/4 ML VIAL IVPUSH SCH ×2 (08:47→20:46)
[2020-03-01] MEDS: Enoxaparin 150 MG/1 ML Syringe SUBCUT SCH ×2 (08:48→20:46)
[2020-03-01] MEDS: Budesonide/Formoterol 160-4.5 MCG/Puff 6 GM Inhaler INH SCH ×2 (09:34→21:23)
[2020-03-01] MEDS ORDERED: Metoprolol Succinate 25 MG Tab.ER PO ONE (10:01)
--- NOTE | 2020-03-01 11:34 | PCM.PN ---
<Lara Ross - Last Filed: 03/01/20 11:40> - General Info Date of Service: 03/01/20 Subjective Update: Bedside: no new complaints; feels the same as yesterday; otherwise mentiosn some discomfort with ambulation; feels tired with ambulation Functional Status: Reports: Pain Controlled - Review of Systems General: Reports: No Symptoms HEENT: Reports: No Symptoms Pulmonary: Reports: No Symptoms Cardiovascular: Reports: Dyspnea on Exertion, Edema. Denies: Chest Pain, Palpitations, Lightheadedness Gastrointestinal: Reports: No Symptoms Genitourinary: Reports: No Symptoms Musculoskeletal: Reports: No Symptoms Skin: Reports: Other (chronic l/e lesions) Neurological: Reports: No Symptoms Psychiatric: Reports: No Symptoms - Patient Data Vitals - Most Recent: Last Vital Signs Temp 97.5 F 03/01/20 10:00 Pulse 83 03/01/20 10:49 Resp 20 03/01/20 10:00 BP 120/70 03/01/20 10:49 Pulse Ox 91 L 03/01/20 10:00 Weight - Most Recent: 185.655 kg I&O - Last 24 Hours: Intake & Output 02/29/20 03/01/20 03/01/20 22:59 06:59 14:59 Intake Total 832 680 230 Output Total 1750 9855 600 Balance -958 -6591 -236 Lab Results Last 24 Hours: Laboratory Results - last 24 hr 02/29/20 02/29/20 03/01/20 Range/Units 12:39 17:15 06:00 WBC 9.98 (4.0-11.0) K/uL RBC 4.53 (4.50-5.90) M/uL Hgb 12.8 L (13.0-17.0) g/dL Hct 41.5 (38.0-50.0) % MCV 91.6 (80.0-98.0) fL MCH 28.3 (27.0-32.0) pg MCHC 30.8 L (31.0-37.0) g/dL RDW Std Deviation 54.2 (28.0-62.0) fl RDW Coeff of Jane 16 H (11.0-15.0) % Plt Count 187 (150-400) K/uL MPV 9.50 (7.40-12.00) fL Neut % (Auto) 68.3 (48.0-80.0) % Lymph % (Auto) 21.0 (16.0-40.0) % [place] % (Auto) 8.5 (0.0-15.0) % Eos % (Auto) 2.0 (0.0-7.0) % Baso % (Auto) 0.2 (0.0-1.5) % Neut # (Auto) 6.8 H (1.4-5.7) K/uL Lymph # (Auto) 2.1 (0.6-2.4) K/uL [place] # (Auto) 0.9 H (0.0-0.8) K/uL Eos # (Auto) 0.2 (0.0-0.7) K/uL Baso # (Auto) 0.0 (0.0-0.1) K/uL Nucleated RBC % 0.0 /100WBC Nucleated RBCs # 0 K/uL Sodium (136-148) mmol/L Potassium (3.5-5.1) mmol/L Chloride (98-107) mmol/L Carbon Dioxide (21.0-32.0) mmol/L BUN (7.0-18.0) mg/dL Creatinine (0.8-1.3) mg/dL Est Cr Clr Drug Dosing mL/min Estimated GFR (MDRD) ml/min Glucose (74-106) mg/dL POC Glucose 139 H 142 H (60-110) mg/dL Calcium (8.5-10.1) mg/dL 03/01/20 Range/Units 06:00 WBC (4.0-11.0) K/uL RBC (4.50-5.90) M/uL Hgb (13.0-17.0) g/dL Hct (38.0-50.0) % MCV (80.0-98.0) fL MCH (27.0-32.0) pg MCHC (31.0-37.0) g/dL RDW Std Deviation (28.0-62.0) fl RDW Coeff of Jane (11.0-15.0) % Plt Count (150-400) K/uL MPV (7.40-12.00) fL Neut % (Auto) (48.0-80.0) % Lymph % (Auto) (16.0-40.0) % [place] % (Auto) (0.0-15.0) % Eos % (Auto) (0.0-7.0) % Baso % (Auto) (0.0-1.5) % Neut # (Auto) (1.4-5.7) K/uL Lymph # (Auto) (0.6-2.4) K/uL [place] # (Auto) (0.0-0.8) K/uL Eos # (Auto) (0.0-0.7) K/uL Baso # (Auto) (0.0-0.1) K/uL Nucleated RBC % /100WBC Nucleated RBCs # K/uL Sodium 142 (136-148) mmol/L Potassium 3.6 (3.5-5.1) mmol/L Chloride 104 (98-107) mmol/L Carbon Dioxide 27.1 (21.0-32.0) mmol/L BUN 10 (7.0-18.0) mg/dL Creatinine 0.9 (0.8-1.3) mg/dL Est Cr Clr Drug Dosing 76.69 mL/min Estimated GFR (MDRD) > 60.0 ml/min Glucose 142 H (74-106) mg/dL POC Glucose (60-110) mg/dL Calcium 9.1 (8.5-10.1) mg/dL Med Orders - Current: Current Medications Albuterol (Ventolin Hfa) 0 gm INH Q4H PRN PRN Reason: Shortness of Breath Last Admin: 02/29/20 11:43 Dose: 2 puff Documented by: Budesonide/Formoterol Fumarate (Symbicort 160-4.5 Mcg) 0 gm INH BID [facility] Last Admin: 03/01/20 09:34 Dose: 2 puff Documented by: Diltiazem HCl (Diltiazem) 20 mg IVPUSH ONETIME PRN PRN Reason: Tachycardia Diltiazem HCl (Cardizem Cd) 240 mg PO DAILY [facility] Last Admin: 03/01/20 08:39 Dose: 240 mg Documented by: Enoxaparin Sodium (Lovenox) 150 mg SUBCUT Q12H [facility] Last Admin: 03/01/20 08:48 Dose: 150 mg Documented by: Furosemide (Lasix) 60 mg IVPUSH BID [facility] Last Admin: 03/01/20 08:47 Dose: 60 mg Documented by: Pantoprazole Sodium 40 mg/ (Sodium Chloride) 10 mls @ 300 mls/hr IV DAILY [facility] Last Admin: 03/01/20 08:44 Dose: 300 mls/hr Documented by: Insulin Aspart (Novolog) 0 unit SUBCUT TIDAC [facility]; Protocol Last Admin: 03/01/20 07:36 Dose: Not Given Documented by: Losartan Potassium (Cozaar) 100 mg PO DAILY [facility] Last Admin: 03/01/20 08:42 Dose: 100 mg Documented by: Nystatin (Nystatin Crm) 1 gm TOP QID PRN PRN Reason: Rash Last Admin: 02/28/20 15:37 Dose: 1 applic Documented by: Potassium Chloride (Klor-Con M20) 20 meq PO BID [facility] Last Admin: 03/01/20 08:43 Dose: 20 meq Documented by: Simvastatin (Zocor) 40 mg PO BEDTIME [facility] Last Admin: 02/29/20 21:07 Dose: 40 mg Documented by: Sodium Chloride (Saline Flush) 10 ml FLUSH ASDIRECTED PRN PRN Reason: Keep Vein Open Last Admin: 02/27/20 12:08 Dose: 10 ml Documented by: Sodium Chloride (Saline Flush) 2.5 ml FLUSH ASDIRECTED PRN PRN Reason: Keep Vein Open Last Admin: 02/27/20 12:08 Dose: 2.5 ml Documented by: Discontinued Medications Aspirin (Aspirin) 324 mg PO ONETIME ONE Stop: 02/27/20 13:22 Last Admin: 02/27/20 13:41 Dose: 324 mg Documented by: Diltiazem HCl (Diltiazem) 20 mg IVPUSH ONETIME ONE Stop: 02/27/20 12:04 Last Admin: 02/27/20 12:10 Dose: 20 mg Documented by: Diltiazem HCl (Cardizem) 60 mg PO QID [facility] Last Admin: 02/28/20 18:06 Dose: 60 mg Documented by: Diltiazem HCl (Cardizem) 30 mg PO ONETIME ONE Stop: 02/28/20 04:10 Last Admin: 02/28/20 04:18 Dose: 30 mg Documented by: Diltiazem HCl (Cardizem) 240 mg PO Q24H [facility] Diltiazem HCl (Cardizem Cd) 240 mg PO DAILY [facility] Diltiazem HCl (Cardizem) 60 mg PO ONETIME ONE Stop: 02/29/20 00:01 Last Admin: 02/28/20 23:58 Dose: 60 mg Documented by: Enoxaparin Sodium (Lovenox) 190 mg 1 mg/kg (190 mg) SUBCUT ONETIME ONE Stop: 02/27/20 13:51 Last Admin: 02/27/20 16:58 Dose: 190 mg Documented by: Enoxaparin Sodium (Lovenox) Confirm Administered Dose 300 mg .ROUTE .STK-MED ONE Stop: 02/27/20 16:57 Last Admin: 02/27/20 19:32 Dose: Not Given Documented by: Diltiazem HCl 100 mg/ Sodium (Chloride) 100 mls @ 5 mls/hr IV ASDIRECTED [facility] Last Infusion: 02/27/20 12:58 Dose: 10 mls/hr Documented by: Furosemide 80 mg/ Sodium (Chloride) 58 mls @ 100 mls/hr IV ONETIME ONE Stop: 02/27/20 13:55 Last Admin: 02/27/20 13:30 Dose: Not Given Documented by: Iopamidol (Isovue-370 (76%)) 50 ml IV ONETIME ONE Stop: 02/27/20 18:50 Last Admin: 02/27/20 18:50 Dose: 50 ml Documented by: Metoprolol Succinate (Toprol Xl) 25 mg PO ONETIME ONE Stop: 03/01/20 10:02 Last Admin: 03/01/20 10:49 Dose: 25 mg Documented by: - Exam Quality Assessment: No: Supplemental Oxygen General: Alert, Oriented, Cooperative, No Acute Distress HEENT: EOMI, Mucous Membr. Moist/[place] Neck: Supple Lungs: Clear to Auscultation, Normal Respiratory Effort Cardiovascular: Regular Rate, Irregular Rhythm GI/Abdominal Exam: Other (obvious hernia; no fluid wave; tense but non-tender ; morbidly obese) Extremities: Other (l/e skin breakdown on right chronic and unchanged from yesterday exam ) Skin: Moist Wound/Incisions: Drainage Neurological: No New Focal Deficit Psy/Mental Status: Alert, Normal Affect, Normal Mood Sepsis Event Note - Evaluation Sepsis Screening Result: No Definite Risk - Focused Exam Vital Signs: Vital Signs Temp Pulse Resp BP BP Pulse Ox 03/01/20 10:49 83 120/70 03/01/20 10:00 97.5 F 20 149/86 H 91 L 03/01/20 08:42 149/86 H 03/01/20 08:39 86 149/86 H 03/01/20 06:00 97.9 F 19 145/88 H 93 L 03/01/20 00:00 97.7 F 19 134/72 93 L - Problem List Review Problem List Initiated/Reviewed/Updated: Yes - My Orders Last 24 Hours: My Active Orders 02/29/20 13:19 Communication Order [RC] DAILY - Plan Plan:: Assessment: 1. Atrial fibrillation with rapid ventricular rate 2. Leukocytosis 3. Hyperglycemia with history of type 2 diabetes 4. Diastolic heart failure. 5. Lower extremity stasis 6. Morbid obesity Plan. Full code. I's and O's : Strict Vitals per routine. Daily weights . Fluid restriction: 1.8 Liters DVT prophylaxis: Full dose Lovenox GI prophylaxis: IV pantoprazole 1. A. fib with RVR; off the diltiazem drip for now; switched over to oral Diltazem . Oral diltiazem 240 CD daily Echocardiogram ordered; pending Strict I's and O's. Daily weights. CT angio negative for any obvious large PE cont anticoagulation with Lovenox, switch to oral upon dc Discussion regarding need for anticoagulation discussed with patient : explained NOAC medication may not be beneficial to patient secondary to his body habitus; pt. may need Warfarin but INR checks may become a burdensome; will consider Lovenox Sub daily injections ; since pt. will be here tomorrow for an ECHO; will consult pharmacy regarding this 2. Leukocytosis; resolved 3. Diabetes: Sliding scale insulin; hold metformin; tid accu-checks, check HbA1c Dc on need for better glucose control: DM educator consult in place for tomorrow 4.. Heart failure; continue diuresis as needed; was switched to torsemide outpatient; non-compliant One time dose of 25 mg succinate Metoprolol : added as part of HF regimen/ monitor for tolerability continue Lasix for now and reassess 60 mg BID IV; received 80 IV lasix in ED Concerns for component of COPD, OHS and worsening heart failure considered; will continue to monitor and reassess as needed. Will try to get records from outpatient facility ,[facility]. f/u on 2D echo Elevated TSH: appropriate for age but in light of Afib; may consider outpatient need for further evaluation CPAP at night for CAROLIN Encourage ambulation ; can consider pt/ot evaluation if still here on Sunday. May also consider starting low dose BB, Metoprolol 25 daily for HF concerns; awaiting Echo however. <Halina Fernandez - Last Filed: 03/03/20 12:45> - General Info Subjective Update: I have seen and evaluated the patient and agree with the residents note unless specified in my note - Patient Data Vitals - Most Recent: Last Vital Signs Temp 36.2 C 03/02/20 12:00 Pulse 84 03/02/20 12:00 Resp 18 03/02/20 12:00 BP 137/81 03/02/20 12:00 Pulse Ox 96 03/02/20 12:00 Med Orders - Current: Current Medications Discontinued Medications Albuterol (Ventolin Hfa) 0 gm INH Q4H PRN PRN Reason: Shortness of Breath Last Admin: 02/29/20 11:43 Dose: 2 puff Documented by: Aspirin (Aspirin) 324 mg PO ONETIME ONE Stop: 02/27/20 13:22 Last Admin: 02/27/20 13:41 Dose: 324 mg Documented by: Budesonide/Formoterol Fumarate (Symbicort 160-4.5 Mcg) 0 gm INH BID [facility]RUT[facility] Last Admin: 03/02/20 09:04 Dose: 2 puff Documented by: Diltiazem HCl (Diltiazem) 20 mg IVPUSH ONETIME ONE Stop: 02/27/20 12:04 Last Admin: 02/27/20 12:10 Dose: 20 mg Documented by: Diltiazem HCl (Cardizem) 60 mg PO QID SHRUTHI Last Admin: 02/28/20 18:06 Dose: 60 mg Documented by: Diltiazem HCl (Cardizem) 30 mg PO ONETIME ONE Stop: 02/28/20 04:10 Last Admin: 02/28/20 04:18 Dose: 30 mg Documented by: Diltiazem HCl (Diltiazem) 20 mg IVPUSH ONETIME PRN PRN Reason: Tachycardia Diltiazem HCl (Cardizem) 240 mg PO Q24H [facility] Diltiazem HCl (Cardizem Cd) 240 mg PO DAILY [facility] Diltiazem HCl (Cardizem Cd) 240 mg PO DAILY [facility] Last Admin: 03/02/20 08:42 Dose: 240 mg Documented by: Diltiazem HCl (Cardizem) 60 mg PO ONETIME ONE Stop: 02/29/20 00:01 Last Admin: 02/28/20 23:58 Dose: 60 mg Documented by: Enoxaparin Sodium (Lovenox) 190 mg 1 mg/kg (190 mg) SUBCUT ONETIME ONE Stop: 02/27/20 13:51 Last Admin: 02/27/20 16:58 Dose: 190 mg Documented by: Enoxaparin Sodium (Lovenox) Confirm Administered Dose 300 mg .ROUTE .STK-MED ONE Stop: 02/27/20 16:57 Last Admin: 02/27/20 19:32 Dose: Not Given Documented by: Enoxaparin Sodium (Lovenox) 150 mg SUBCUT Q12H [facility] Last Admin: 03/02/20 08:49 Dose: 150 mg Documented by: Furosemide (Lasix) 60 mg IVPUSH BID [facility] Last Admin: 03/02/20 08:46 Dose: 60 mg Documented by: Diltiazem HCl 100 mg/ Sodium (Chloride) 100 mls @ 5 mls/hr IV ASDIRECTED [facility] Last Infusion: 02/27/20 12:58 Dose: 10 mls/hr Documented by: Furosemide 80 mg/ Sodium (Chloride) 58 mls @ 100 mls/hr IV ONETIME ONE Stop: 02/27/20 13:55 Last Admin: 02/27/20 13:30 Dose: Not Given Documented by: Pantoprazole Sodium 40 mg/ (Sodium Chloride) 10 mls @ 300 mls/hr IV DAILY [facility] Last Admin: 03/02/20 08:49 Dose: 300 mls/hr Documented by: Insulin Aspart (Novolog) 0 unit SUBCUT TIDAC [facility]; Protocol Last Admin: 03/02/20 07:54 Dose: Not Given Documented by: Iopamidol (Isovue-370 (76%)) 50 ml IV ONETIME ONE Stop: 02/27/20 18:50 Last Admin: 02/27/20 18:50 Dose: 50 ml Documented by: Losartan Potassium (Cozaar) 100 mg PO DAILY [facility] Last Admin: 03/02/20 08:44 Dose: 100 mg Documented by: Metoprolol Succinate (Toprol Xl) 25 mg PO ONETIME ONE Stop: 03/01/20 10:02 Last Admin: 03/01/20 10:49 Dose: 25 mg Documented by: Nystatin (Nystatin Crm) 1 gm TOP QID PRN PRN Reason: Rash Last Admin: 02/28/20 15:37 Dose: 1 applic Documented by: Potassium Chloride (Klor-Con M20) 20 meq PO BID [facility] Last Admin: 03/02/20 09:38 Dose: 20 meq Documented by: Potassium Chloride (Klor-Con M20) 40 meq PO ONETIME ONE Stop: 03/02/20 08:22 Last Admin: 03/02/20 08:41 Dose: 40 meq Documented by: Simvastatin (Zocor) 40 mg PO BEDTIME [facility] Last Admin: 03/01/20 20:46 Dose: 40 mg Documented by: Sodium Chloride (Saline Flush) 10 ml FLUSH ASDIRECTED PRN PRN Reason: Keep Vein Open Last Admin: 02/27/20 12:08 Dose: 10 ml Documented by: Sodium Chloride (Saline Flush) 2.5 ml FLUSH ASDIRECTED PRN PRN Reason: Keep Vein Open Last Admin: 02/27/20 12:08 Dose: 2.5 ml Documented by: - Problem List & Annotations (1) Atrial fibrillation with RVR SNOMED Code(s): 774272950171022 Code(s): I48.91 - UNSPECIFIED ATRIAL FIBRILLATION Status: Acute (2) Dyspnea SNOMED Code(s): 624165714 Code(s): R06.00 - DYSPNEA, UNSPECIFIED Status: Acute (3) CHF (congestive heart failure) SNOMED Code(s): 95995341 Code(s): I50.9 - HEART FAILURE, UNSPECIFIED Status: Acute (4) Generalized weakness SNOMED Code(s): 37031068 Code(s): R53.1 - WEAKNESS Status: Acute - Plan Plan:: I have seen and evaluated the patient and agree with the residents note unless specified in my note
[2020-03-01] MEDS: Simvastatin 20 MG Tab PO SCH (20:46)
[2020-03-02 06:51] LABS: BLOOD UREA NITROGEN,BUN 12 mg/dL (7.0-18.0); CARBON DIOXIDE,CO2 28.6 mmol/L (21.0-32.0); CHLORIDE,CL 103 mmol/L (98-107); GLUCOSE RANDOM 134 mg/dL (74-106); POTASSIUM,K 3.4 mmol/L (3.5-5.1); SODIUM,NA 142 mmol/L (136-148)
[2020-03-02] MEDS: Insulin Aspart 100 Units/ML 3 ML Pen SUBCUT SCH (07:54)
[2020-03-02] MEDS ORDERED: Potassium Chloride 20 MEQ Tab.ER PO ONE (08:21)
[2020-03-02] MEDS: Diltiazem 120 MG Cap.CD PO SCH (08:42)
[2020-03-02] MEDS: Losartan 50 MG Tab PO SCH (08:44)
[2020-03-02] MEDS: Furosemide 40 MG/4 ML VIAL IVPUSH SCH (08:46)
[2020-03-02] MEDS: Pantoprazole 40 MG in Sodium Chloride 0.9% 10 ML IV SCH (08:49)
[2020-03-02] MEDS: Enoxaparin 150 MG/1 ML Syringe SUBCUT SCH (08:49)
[2020-03-02] MEDS: Budesonide/Formoterol 160-4.5 MCG/Puff 6 GM Inhaler INH SCH (09:04)
[2020-03-02] MEDS: Potassium Chloride 20 MEQ Tab.ER PO SCH (09:38)
--- NOTE | 2020-03-02 12:30 | PCM.DCSUM1 ---
<Lara Ross - Last Filed: 03/02/20 17:57> Discharge Summary - Hospital Course Free Text/Narrative:: Patient is a 74 old male brought in from outpatient facility with concerns of elevated heart rate and dyspnea. Patient endorsed worsening dyspnea x2 weeks with elevated heart rate in clinic of 215. EKG found atrial fibrillation w. RVR; patient however does have a history of atrial fibrillation as seen on prior EKGs of 2018. Patient was transferred here to ED department . Of note patient used to be on 80 mg of furosemide daily; however was recently switched to 40 mg torsemide per cardiology but patient was noncompliant with his dosage due to his worsening lower extremity swelling; switched back to his Lasix; last dose was last night 4 PM Anticoagulation: patient is only on aspirin and no other anticoagulation ED course: EKG showed rapid ventricular rate of 163 with mildly prolonged QT interval. No ST elevation appreciated Patient was started on diltiazem bolus plus diltiazem drip Troponin negative Chest x-ray negative for any acute processes CT angio did not present with any signs of PE COVID negative Started on Lovenox/full dose Repeat troponin negative Hospital course: patient initially started on Diltiazem drip from ED w. overnight control of his rapid ventricular rate. Eventually switched over to Diltiazem 240 CD daily for his afib. LAsix were continue via IV of 60 bid secondary to worsening l/e edema w. chronic skin breakdown. pt. diureses on average 1 Liter daily with total weight loss of 9-10 lbs during duration of stay. ECHO ordered; results pending. Anticoagulation started on Warfarin ; will start day after discharge; outpatient INR checks scheduled as well. DM educator also discussed with pt. starting new medications for DM secondary to 7.4 A1c. Follow up appointment scheduled. pt dyspnea and heart rate improved however concners for deconditioning discussed, day of discharge pt. was stable and returning to baseline. New medications of diltiazem, metoprolol, warfarin discussed with patient pt requested discharge. Vitals stable. Discharged home. - Discharge Data Discharge Date: 03/02/20 Discharge Disposition: Home, Self-Care 01 Condition: Stable - Referral to Home Health Primary Care Physician: Matty Geller MD - Patient Summary/Data Consults: Consultations 02/28/20 14:58 PT Evaluation and Treatment [CONS] Routine - Patient Instructions Other/Special Instructions: We are starting you on some new medications. For your irregular heart beat : we are starting you on a medication called Diltiazem 240; you will take this everyday to help control the rate of your heart. We are also starting you on a blood thinnner as well to prevent clots; start this medication TOMORROW on March 03, an appointment with the coagulation clinic this Sunday will be made for you to adjust your medication leveles. IF you notice any increase bleeding ; stop this medication and notify your provider immediately. We are also changing the dose of your water pill ot 80- mg twice a day; if you feel dizzy lightheaded or start having chest pain ; notify your provider immediately. A follow up with your PCP will also be scheduled as long as an appointment with the [facility]. - Discharge Plan *PRESCRIPTION DRUG MONITORING PROGRAM REVIEWED*: No *COPY OF PRESCRIPTION DRUG MONITORING REPORT IN PATIENT VALENC[place]: No Prescriptions/Med Rec: Diltiazem [Cardizem CD] 240 mg PO DAILY 30 Days #30 cap.cd Warfarin [Coumadin] 5 mg PO DAILY 10 Days #10 tab Furosemide 80 mg PO BID 30 Days #60 Nystatin [Nystatin Crm] 1 gm TOP QID PRN 10 Days #1 tube PRN Reason: Rash Metoprolol Succinate [Toprol XL] 25 mg PO DAILY 14 Days #14 tab.er Home Medications: Home Meds Simvastatin [Zocor] 40 mg PO BEDTIME 09/04/17 [History] allopurinoL [Zyloprim] 300 mg PO DAILY 09/04/17 [History] metFORMIN [Glucophage] 1,000 mg PO BIDMEALS 09/04/17 [History] Losartan [Cozaar] 100 mg PO DAILY 03/02/18 [History] Potassium Chloride [Klor-Con M20] 1 tab PO BID 03/19/18 [History] Albuterol [Ventolin HFA] 2 puff INH Q4H PRN 02/27/20 [History] Budesonide/Formoterol [Symbicort 160-4.5 MCG] 1 puff INH BID 02/27/20 [History] Diltiazem [Cardizem CD] 240 mg PO DAILY 30 Days #30 cap.cd 03/02/20 [Rx] Furosemide 80 mg PO BID 30 Days #60 03/02/20 [Rx] Metoprolol Succinate [Toprol XL] 25 mg PO DAILY 14 Days #14 tab.er 03/02/20 [Rx] Nystatin [Nystatin Crm] 1 gm TOP QID PRN 10 Days #1 tube 03/02/20 [Rx] Warfarin [Coumadin] 5 mg PO DAILY 10 Days #10 tab 03/02/20 [Rx] Forms: ED Department Discharge Referrals: Matty Geller MD [Primary Care Provider] - 03/17/20 9:00 am (Please arrive 15 minutes early to appointment) - Discharge Summary/Plan Comment DC Time >30 min.: No - Patient Data Vitals - Most Recent: Last Vital Signs Temp 97.1 F 03/02/20 08:08 Pulse 91 03/02/20 08:42 Resp 18 03/02/20 08:08 BP 137/81 03/02/20 08:44 Pulse Ox 94 L 03/02/20 08:08 Weight - Most Recent: 182.934 kg I&O - Last 24 hours: Intake & Output 03/01/20 03/02/20 03/02/20 22:59 06:59 14:59 Intake Total 560 Output Total 1410 Balance -850 Lab Results - Last 24 hrs: Laboratory Results - last 24 hr 03/01/20 03/02/20 03/02/20 Range/Units 17:20 05:59 06:06 WBC 9.97 (4.0-11.0) K/uL RBC 4.63 (4.50-5.90) M/uL Hgb 13.5 (13.0-17.0) g/dL Hct 42.8 (38.0-50.0) % MCV 92.4 (80.0-98.0) fL MCH 29.2 (27.0-32.0) pg MCHC 31.5 (31.0-37.0) g/dL RDW Std Deviation 54.6 (28.0-62.0) fl RDW Coeff of Jane 16 H (11.0-15.0) % Plt Count 196 (150-400) K/uL MPV 9.60 (7.40-12.00) fL Neut % (Auto) 59.4 (48.0-80.0) % Lymph % (Auto) 29.6 (16.0-40.0) % Roosevelt % (Auto) 9.0 (0.0-15.0) % Eos % (Auto) 1.8 (0.0-7.0) % Baso % (Auto) 0.2 (0.0-1.5) % Neut # (Auto) 5.9 H (1.4-5.7) K/uL Lymph # (Auto) 3.0 H (0.6-2.4) K/uL Roosevelt # (Auto) 0.9 H (0.0-0.8) K/uL Eos # (Auto) 0.2 (0.0-0.7) K/uL Baso # (Auto) 0.0 (0.0-0.1) K/uL Nucleated RBC % 0.0 /100WBC Nucleated RBCs # 0 K/uL INR Sodium (136-148) mmol/L Potassium (3.5-5.1) mmol/L Chloride (98-107) mmol/L Carbon Dioxide (21.0-32.0) mmol/L BUN (7.0-18.0) mg/dL Creatinine (0.8-1.3) mg/dL Est Cr Clr Drug Dosing mL/min Estimated GFR (MDRD) ml/min Glucose (74-106) mg/dL POC Glucose 155 H 122 H (60-110) mg/dL Calcium (8.5-10.1) mg/dL 03/02/20 03/02/20 03/02/20 Range/Units 06:06 10:13 12:25 WBC (4.0-11.0) K/uL RBC (4.50-5.90) M/uL Hgb (13.0-17.0) g/dL Hct (38.0-50.0) % MCV (80.0-98.0) fL MCH (27.0-32.0) pg MCHC (31.0-37.0) g/dL RDW Std Deviation (28.0-62.0) fl RDW Coeff of Jane (11.0-15.0) % Plt Count (150-400) K/uL MPV (7.40-12.00) fL Neut % (Auto) (48.0-80.0) % Lymph % (Auto) (16.0-40.0) % Roosevelt % (Auto) (0.0-15.0) % Eos % (Auto) (0.0-7.0) % Baso % (Auto) (0.0-1.5) % Neut # (Auto) (1.4-5.7) K/uL Lymph # (Auto) (0.6-2.4) K/uL Roosevelt # (Auto) (0.0-0.8) K/uL Eos # (Auto) (0.0-0.7) K/uL Baso # (Auto) (0.0-0.1) K/uL Nucleated RBC % /100WBC Nucleated RBCs # K/uL INR 1.13 Sodium 142 (136-148) mmol/L Potassium 3.4 L (3.5-5.1) mmol/L Chloride 103 (98-107) mmol/L Carbon Dioxide 28.6 (21.0-32.0) mmol/L BUN 12 (7.0-18.0) mg/dL Creatinine 0.9 (0.8-1.3) mg/dL Est Cr Clr Drug Dosing 76.69 mL/min Estimated GFR (MDRD) > 60.0 ml/min Glucose 134 H (74-106) mg/dL POC Glucose 125 H (60-110) mg/dL Calcium 9.4 (8.5-10.1) mg/dL Med Orders - Current: Current Medications Albuterol (Ventolin Hfa) 0 gm INH Q4H PRN PRN Reason: Shortness of Breath Last Admin: 02/29/20 11:43 Dose: 2 puff Documented by: Budesonide/Formoterol Fumarate (Symbicort 160-4.5 Mcg) 0 gm INH BID [facility] Last Admin: 03/02/20 09:04 Dose: 2 puff Documented by: Diltiazem HCl (Diltiazem) 20 mg IVPUSH ONETIME PRN PRN Reason: Tachycardia Diltiazem HCl (Cardizem Cd) 240 mg PO DAILY [facility] Last Admin: 03/02/20 08:42 Dose: 240 mg Documented by: Enoxaparin Sodium (Lovenox) 150 mg SUBCUT Q12H [facility] Last Admin: 03/02/20 08:49 Dose: 150 mg Documented by: Furosemide (Lasix) 60 mg IVPUSH BID [facility] Last Admin: 03/02/20 08:46 Dose: 60 mg Documented by: Pantoprazole Sodium 40 mg/ (Sodium Chloride) 10 mls @ 300 mls/hr IV DAILY [facility] Last Admin: 03/02/20 08:49 Dose: 300 mls/hr Documented by: Insulin Aspart (Novolog) 0 unit SUBCUT TIDAC [facility]; Protocol Last Admin: 03/02/20 07:54 Dose: Not Given Documented by: Losartan Potassium (Cozaar) 100 mg PO DAILY [facility] Last Admin: 03/02/20 08:44 Dose: 100 mg Documented by: Nystatin (Nystatin Crm) 1 gm TOP QID PRN PRN Reason: Rash Last Admin: 02/28/20 15:37 Dose: 1 applic Documented by: Potassium Chloride (Klor-Con M20) 20 meq PO BID [facility] Last Admin: 03/02/20 09:38 Dose: 20 meq Documented by: Simvastatin (Zocor) 40 mg PO BEDTIME [facility] Last Admin: 03/01/20 20:46 Dose: 40 mg Documented by: Sodium Chloride (Saline Flush) 10 ml FLUSH ASDIRECTED PRN PRN Reason: Keep Vein Open Last Admin: 02/27/20 12:08 Dose: 10 ml Documented by: Sodium Chloride (Saline Flush) 2.5 ml FLUSH ASDIRECTED PRN PRN Reason: Keep Vein Open Last Admin: 02/27/20 12:08 Dose: 2.5 ml Documented by: Discontinued Medications Aspirin (Aspirin) 324 mg PO ONETIME ONE Stop: 02/27/20 13:22 Last Admin: 02/27/20 13:41 Dose: 324 mg Documented by: Diltiazem HCl (Diltiazem) 20 mg IVPUSH ONETIME ONE Stop: 02/27/20 12:04 Last Admin: 02/27/20 12:10 Dose: 20 mg Documented by: Diltiazem HCl (Cardizem) 60 mg PO QID [facility] Last Admin: 02/28/20 18:06 Dose: 60 mg Documented by: Diltiazem HCl (Cardizem) 30 mg PO ONETIME ONE Stop: 02/28/20 04:10 Last Admin: 02/28/20 04:18 Dose: 30 mg Documented by: Diltiazem HCl (Cardizem) 240 mg PO Q24H [facility] Diltiazem HCl (Cardizem Cd) 240 mg PO DAILY [facility] Diltiazem HCl (Cardizem) 60 mg PO ONETIME ONE Stop: 02/29/20 00:01 Last Admin: 02/28/20 23:58 Dose: 60 mg Documented by: Enoxaparin Sodium (Lovenox) 190 mg 1 mg/kg (190 mg) SUBCUT ONETIME ONE Stop: 02/27/20 13:51 Last Admin: 02/27/20 16:58 Dose: 190 mg Documented by: Enoxaparin Sodium (Lovenox) Confirm Administered Dose 300 mg .ROUTE .STK-MED ONE Stop: 02/27/20 16:57 Last Admin: 02/27/20 19:32 Dose: Not Given Documented by: Diltiazem HCl 100 mg/ Sodium (Chloride) 100 mls @ 5 mls/hr IV ASDIRECTED SHRUTHI Last Infusion: 02/27/20 12:58 Dose: 10 mls/hr Documented by: Furosemide 80 mg/ Sodium (Chloride) 58 mls @ 100 mls/hr IV ONETIME ONE Stop: 02/27/20 13:55 Last Admin: 02/27/20 13:30 Dose: Not Given Documented by: Iopamidol (Isovue-370 (76%)) 50 ml IV ONETIME ONE Stop: 02/27/20 18:50 Last Admin: 02/27/20 18:50 Dose: 50 ml Documented by: Metoprolol Succinate (Toprol Xl) 25 mg PO ONETIME ONE Stop: 03/01/20 10:02 Last Admin: 03/01/20 10:49 Dose: 25 mg Documented by: Potassium Chloride (Klor-Con M20) 40 meq PO ONETIME ONE Stop: 03/02/20 08:22 Last Admin: 03/02/20 08:41 Dose: 40 meq Documented by: <Halina Fernandez - Last Filed: 03/03/20 12:58> Discharge Summary - Hospital Course Free Text/Narrative:: I have seen and evaluated the patient and agree with the residents note unless specified in my note - Referral to Home Health Primary Care Physician: Matty Geller MD - Discharge Diagnosis/Problem(s) (1) Atrial fibrillation with RVR SNOMED Code(s): 936056405271065 ICD Code: I48.91 - UNSPECIFIED ATRIAL FIBRILLATION Status: Acute (2) Dyspnea SNOMED Code(s): 838937244 ICD Code: R06.00 - DYSPNEA, UNSPECIFIED Status: Acute (3) CHF (congestive heart failure) SNOMED Code(s): 47601041 ICD Code: I50.9 - HEART FAILURE, UNSPECIFIED Status: Acute (4) Generalized weakness SNOMED Code(s): 16270013 ICD Code: R53.1 - WEAKNESS Status: Acute - Patient Summary/Data Consults: Consultations 02/28/20 14:58 PT Evaluation and Treatment [CONS] Routine - Patient Data Vitals - Most Recent: Last Vital Signs Temp 36.2 C 03/02/20 12:00 Pulse 84 03/02/20 12:00 Resp 18 03/02/20 12:00 BP 137/81 03/02/20 12:00 Pulse Ox 96 03/02/20 12:00 Med Orders - Current: Current Medications Discontinued Medications Albuterol (Ventolin Hfa) 0 gm INH Q4H PRN PRN Reason: Shortness of Breath Last Admin: 02/29/20 11:43 Dose: 2 puff Documented by: Aspirin (Aspirin) 324 mg PO ONETIME ONE Stop: 02/27/20 13:22 Last Admin: 02/27/20 13:41 Dose: 324 mg Documented by: Budesonide/Formoterol Fumarate (Symbicort 160-4.5 Mcg) 0 gm INH BID [facility] Last Admin: 03/02/20 09:04 Dose: 2 puff Documented by: Diltiazem HCl (Diltiazem) 20 mg IVPUSH ONETIME ONE Stop: 02/27/20 12:04 Last Admin: 02/27/20 12:10 Dose: 20 mg Documented by: Diltiazem HCl (Cardizem) 60 mg PO QID [facility] Last Admin: 02/28/20 18:06 Dose: 60 mg Documented by: Diltiazem HCl (Cardizem) 30 mg PO ONETIME ONE Stop: 02/28/20 04:10 Last Admin: 02/28/20 04:18 Dose: 30 mg Documented by: Diltiazem HCl (Diltiazem) 20 mg IVPUSH ONETIME PRN PRN Reason: Tachycardia Diltiazem HCl (Cardizem) 240 mg PO Q24H [facility] Diltiazem HCl (Cardizem Cd) 240 mg PO DAILY [facility] Diltiazem HCl (Cardizem Cd) 240 mg PO DAILY [facility] Last Admin: 03/02/20 08:42 Dose: 240 mg Documented by: Diltiazem HCl (Cardizem) 60 mg PO ONETIME ONE Stop: 02/29/20 00:01 Last Admin: 02/28/20 23:58 Dose: 60 mg Documented by: Enoxaparin Sodium (Lovenox) 190 mg 1 mg/kg (190 mg) SUBCUT ONETIME ONE Stop: 02/27/20 13:51 Last Admin: 02/27/20 16:58 Dose: 190 mg Documented by: Enoxaparin Sodium (Lovenox) Confirm Administered Dose 300 mg .ROUTE .STK-MED ONE Stop: 02/27/20 16:57 Last Admin: 02/27/20 19:32 Dose: Not Given Documented by: Enoxaparin Sodium (Lovenox) 150 mg SUBCUT Q12H [facility] Last Admin: 03/02/20 08:49 Dose: 150 mg Documented by: Furosemide (Lasix) 60 mg IVPUSH BID [facility] Last Admin: 03/02/20 08:46 Dose: 60 mg Documented by: Diltiazem HCl 100 mg/ Sodium (Chloride) 100 mls @ 5 mls/hr IV ASDIRECTED [facility] Last Infusion: 02/27/20 12:58 Dose: 10 mls/hr Documented by: Furosemide 80 mg/ Sodium (Chloride) 58 mls @ 100 mls/hr IV ONETIME ONE Stop: 02/27/20 13:55 Last Admin: 02/27/20 13:30 Dose: Not Given Documented by: Pantoprazole Sodium 40 mg/ (Sodium Chloride) 10 mls @ 300 mls/hr IV DAILY [facility] Last Admin: 03/02/20 08:49 Dose: 300 mls/hr Documented by: Insulin Aspart (Novolog) 0 unit SUBCUT TIDAC [facility]; Protocol Last Admin: 03/02/20 07:54 Dose: Not Given Documented by: Iopamidol (Isovue-370 (76%)) 50 ml IV ONETIME ONE Stop: 02/27/20 18:50 Last Admin: 02/27/20 18:50 Dose: 50 ml Documented by: Losartan Potassium (Cozaar) 100 mg PO DAILY [facility] Last Admin: 03/02/20 08:44 Dose: 100 mg Documented by: Metoprolol Succinate (Toprol Xl) 25 mg PO ONETIME ONE Stop: 03/01/20 10:02 Last Admin: 03/01/20 10:49 Dose: 25 mg Documented by: Nystatin (Nystatin Crm) 1 gm TOP QID PRN PRN Reason: Rash Last Admin: 02/28/20 15:37 Dose: 1 applic Documented by: Potassium Chloride (Klor-Con M20) 20 meq PO BID [facility] Last Admin: 03/02/20 09:38 Dose: 20 meq Documented by: Potassium Chloride (Klor-Con M20) 40 meq PO ONETIME ONE Stop: 03/02/20 08:22 Last Admin: 03/02/20 08:41 Dose: 40 meq Documented by: Simvastatin (Zocor) 40 mg PO BEDTIME [facility] Last Admin: 03/01/20 20:46 Dose: 40 mg Documented by: Sodium Chloride (Saline Flush) 10 ml FLUSH ASDIRECTED PRN PRN Reason: Keep Vein Open Last Admin: 02/27/20 12:08 Dose: 10 ml Documented by: Sodium Chloride (Saline Flush) 2.5 ml FLUSH ASDIRECTED PRN PRN Reason: Keep Vein Open Last Admin: 02/27/20 12:08 Dose: 2.5 ml Documented by:
--- NOTE | 2020-03-04 12:04 | ECHO ---
EXAM DATE: 02/27/20 PATIENT'S AGE: 74 The ECHO report has been scanned into [employer] and can be seen in this patient's EMR (Electronic Medical Record) under the REPORTS section. The report has also been scanned into PACS. YASMIN
== END 2020-03-02 15:10 | disposition home or self-care (01) | DRG 309 ==
LOC: MW.ED 11:53 → MW.ICU 15:37
PROVIDERS: ADMIT Student in an Organized Health Care Education/Training Program; ATTEND Student in an Organized Health Care Education/Training Program
DX: I48.91 Unspecified atrial fibrillation (principal); R06.00 Dyspnea, unspecified; I50.32 Chronic diastolic (congestive) heart failure; Z79.01 Long term (current) use of anticoagulants; I50.9 Heart failure, unspecified; E78.00 Pure hypercholesterolemia, unspecified; G47.30 Sleep apnea, unspecified; I11.0 Hypertensive heart disease with heart failure; M19.90 Unspecified osteoarthritis, unspecified site; J44.9 Chronic obstructive pulmonary disease, unspecified; G47.33 Obstructive sleep apnea (adult) (pediatric); E11.9 Type 2 diabetes mellitus without complications; Z98.890 Other specified postprocedural states; Z79.84 Long term (current) use of oral hypoglycemic drugs; Z79.82 Long term (current) use of aspirin; Z79.899 Other long term (current) drug therapy; F41.9 Anxiety disorder, unspecified; F32.9 Major depressive disorder, single episode, unspecified; E11.65 Type 2 diabetes mellitus with hyperglycemia; Z79.4 Long term (current) use of insulin; E66.01 Morbid (severe) obesity due to excess calories; Z68.38 Body mass index [BMI] 38.0-38.9, adult; Z20.828 Contact with and (suspected) exposure to other viral communicable diseases
CPT/HCPCS: 36415; 71045; 71275; 80053; 83735; 83880; 84100; 84484 ×2; 85025; 85610; 93005; 96365; 96366; 96376; 99285; A9270; J3490 ×2; J7050; U0002; 80048; 81001; 82962; 83036; 84443; 93306; 93970; 93970-26; 99291; C9113; J1650; J1815-GY; J1940; Q9967

== ENCOUNTER 2022-05-15 19:40 | Emergency (ER) | payer MEDICARE, BC ==
[2022-05-15] MEDS ORDERED: fentaNYL 100 MCG/2 ML SDV ONE (20:03)
[2022-05-15] MEDS ORDERED: Ondansetron 4 MG/2 ML SDV ONE (20:11)
[2022-05-15] MEDS ORDERED: Ondansetron 4 MG/2 ML SDV IVPUSH ONE (20:29)
[2022-05-15] MEDS ORDERED: fentaNYL 100 MCG/2 ML SDV IVPUSH ONE (20:30)
[2022-05-15] MEDS: fentaNYL 100 MCG/2 ML SDV IVPUSH ONE ×2 (20:32→20:35)
[2022-05-15] MEDS ORDERED: Bacitracin Oint 1 GM U/D Packet TOP ONE (21:22)
[2022-05-15] MEDS ORDERED: Diphtheria,Pertussis(Acell),Tetanus Vaccine 0.5 ML Syringe IM ONE (21:49)
== END 2022-05-15 22:05 | disposition home or self-care (01) ==
LOC: MW.ED 19:40
DX: S01.81XA Laceration without foreign body of other part of head, initial encounter (principal); I48.91 Unspecified atrial fibrillation; I11.0 Hypertensive heart disease with heart failure; I50.9 Heart failure, unspecified; E78.00 Pure hypercholesterolemia, unspecified; J44.9 Chronic obstructive pulmonary disease, unspecified; M19.90 Unspecified osteoarthritis, unspecified site; E11.9 Type 2 diabetes mellitus without complications; E66.9 Obesity, unspecified; Z23 Encounter for immunization; Z79.899 Other long term (current) drug therapy; Z79.01 Long term (current) use of anticoagulants; Z79.84 Long term (current) use of oral hypoglycemic drugs; W00.0XXA Fall on same level due to ice and snow, initial encounter; Y93.01 Activity, walking, marching and hiking; Y92.61 Building [any] under construction as the place of occurrence of the external cause
CPT/HCPCS: 70450; 90471; 90715; 96374; 96375; 99284; J2405; J3010

== ENCOUNTER 2022-09-15 13:30 | Inpatient (IN) | payer MEDICARE, BC ==
[2022-09-15] MEDS ORDERED: Sodium Chloride 0.9% 10 ML Syringe FLUSH PRN (13:59)
[2022-09-15] MEDS ORDERED: Sodium Chloride 0.9% 2.5 ML Syringe FLUSH PRN (13:59)
[2022-09-15 14:54] LABS: CARBON DIOXIDE,CO2 26.7 mmol/L (21.0-32.0); POTASSIUM,K 3.8 mmol/L (3.5-5.1)
[2022-09-15 14:55] LABS: CORONAVIRUS COVID-19 NAA NEGATIVE (NEGATIVE); INFLUENZA A NAA NEGATIVE (NEGATIVE); INFLUENZA B NAA NEGATIVE (NEGATIVE); RESPIRATORY SYNCYTIAL VIR NAA NEGATIVE (NEGATIVE)
[2022-09-15] MEDS ORDERED: ceFAZolin 2 GM in Sodium Chloride 0.9% 50 ML IV ONE ×2 (15:18→15:30)
[2022-09-15] MEDS ORDERED: Furosemide 40 MG/4 ML VIAL IVPUSH ONE (16:55)
[2022-09-15] MEDS ORDERED: Acetaminophen 325 MG Tab PO PRN (19:40)
[2022-09-15] MEDS ORDERED: VANCOmycin 2 GM/400 ML 2 GM in Premix Bag 1 BAG IV ONE (20:00)
[2022-09-15] MEDS: Potassium Chloride 20 MEQ Tab.ER PO SCH (21:27)
[2022-09-15] MEDS: Furosemide 40 MG Tab PO SCH (21:27)
[2022-09-15] MEDS: atorvaSTATin 40 MG Tab PO SCH (21:27)
[2022-09-15] MEDS: Ibuprofen 400 MG Tab PO PRN (21:27)
[2022-09-15] MEDS: Albuterol 8 GM Inhaler INH PRN (21:33)
[2022-09-15] MEDS ORDERED: cefTRIAXone 1 GM in Sodium Chloride 0.9% 50 ML IV SCH (22:00)
[2022-09-15] MEDS ORDERED: cefTRIAXone 1 GM Vial ONE ×2 (23:22→23:53)
[2022-09-15] MEDS ORDERED: Sodium Chloride 0.9% 50 ML ONE ×2 (23:22→23:53)
[2022-09-16] MEDS: Furosemide 40 MG Tab PO SCH ×3 (05:39→22:01)
[2022-09-16 07:45] LABS: CARBON DIOXIDE,CO2 25.9 mmol/L (21.0-32.0); POTASSIUM,K 3.3 mmol/L (3.5-5.1)
[2022-09-16] MEDS: Potassium Chloride 20 MEQ Tab.ER PO SCH ×2 (08:16→17:14)
[2022-09-16] MEDS: Diltiazem 120 MG Cap.CD PO SCH (08:16)
[2022-09-16] MEDS: Allopurinol 300 MG Tab PO SCH (08:17)
[2022-09-16] MEDS: Metoprolol Succinate 25 MG Tab.ER PO SCH (08:17)
[2022-09-16] MEDS: Losartan 50 MG Tab PO SCH (08:17)
[2022-09-16] MEDS: Albuterol 8 GM Inhaler INH PRN (08:25)
[2022-09-16] MEDS ORDERED: Warfarin 5 MG Tab PO SCH ×2 (14:00)
[2022-09-16] MEDS ORDERED: Potassium Chloride 20 MEQ Tab.ER PO ONE (14:45)
[2022-09-16] MEDS: Ibuprofen 400 MG Tab PO PRN (14:46)
[2022-09-16] MEDS: Warfarin Sliding Scale PO SCH (14:57)
[2022-09-16] MEDS ORDERED: VANCOmycin 2 GM/400 ML 2 GM in Premix Bag 1 BAG IV SCH (15:30)
[2022-09-16] MEDS: atorvaSTATin 40 MG Tab PO SCH (22:01)
[2022-09-16] MEDS: cefTRIAXone 1 GM in Sodium Chloride 0.9% 50 ML IV SCH (22:01)
[2022-09-17] MEDS: Ibuprofen 400 MG Tab PO PRN ×2 (06:36→13:50)
[2022-09-17] MEDS: Furosemide 40 MG Tab PO SCH ×3 (06:36→21:20)
[2022-09-17 06:53] LABS: CARBON DIOXIDE,CO2 24.7 mmol/L (21.0-32.0); POTASSIUM,K 3.4 mmol/L (3.5-5.1)
[2022-09-17] MEDS: Potassium Chloride 20 MEQ Tab.ER PO SCH ×2 (08:28→17:39)
[2022-09-17] MEDS: Diltiazem 120 MG Cap.CD PO SCH (08:29)
[2022-09-17] MEDS: Losartan 50 MG Tab PO SCH (08:32)
[2022-09-17] MEDS: Metoprolol Succinate 25 MG Tab.ER PO SCH (08:33)
[2022-09-17] MEDS: Allopurinol 300 MG Tab PO SCH (08:33)
[2022-09-17] MEDS: oxyCODONE 5 MG Tab PO PRN ×2 (08:33→17:49)
[2022-09-17] MEDS: VANCOmycin 2 GM/400 ML 2 GM in Premix Bag 1 BAG IV SCH ×2 (08:37→19:58)
[2022-09-17] MEDS: Albuterol 8 GM Inhaler INH PRN ×2 (09:03→13:05)
[2022-09-17] MEDS ORDERED: Potassium Chloride 20 MEQ Tab.ER PO ONE (13:00)
[2022-09-17] MEDS ORDERED: Warfarin 5 MG Tab PO SCH (14:00)
[2022-09-17] MEDS: Warfarin Sliding Scale PO SCH (14:12)
[2022-09-17] MEDS: atorvaSTATin 40 MG Tab PO SCH (21:20)
[2022-09-17] MEDS: cefTRIAXone 1 GM in Sodium Chloride 0.9% 50 ML IV SCH (22:53)
[2022-09-18] MEDS: Furosemide 40 MG Tab PO SCH ×3 (06:11→21:20)
[2022-09-18 06:34] LABS: CARBON DIOXIDE,CO2 26.5 mmol/L (21.0-32.0); POTASSIUM,K 3.7 mmol/L (3.5-5.1)
[2022-09-18] MEDS: oxyCODONE 5 MG Tab PO PRN (08:14)
[2022-09-18] MEDS: VANCOmycin 2 GM/400 ML 2 GM in Premix Bag 1 BAG IV SCH ×2 (08:37→20:14)
[2022-09-18] MEDS: Allopurinol 300 MG Tab PO SCH (08:37)
[2022-09-18] MEDS: Potassium Chloride 20 MEQ Tab.ER PO SCH ×2 (08:38→16:34)
[2022-09-18] MEDS: Losartan 50 MG Tab PO SCH (08:41)
[2022-09-18] MEDS: Metoprolol Succinate 25 MG Tab.ER PO SCH (08:41)
[2022-09-18] MEDS: Diltiazem 120 MG Cap.CD PO SCH (08:42)
[2022-09-18] MEDS: Ibuprofen 400 MG Tab PO PRN ×3 (10:30→23:08)
[2022-09-18] MEDS ORDERED: Warfarin 2.5 MG Tab PO SCH (14:00)
[2022-09-18] MEDS: Warfarin Sliding Scale PO SCH (14:23)
[2022-09-18] MEDS: Albuterol 8 GM Inhaler INH PRN (19:43)
[2022-09-18] MEDS: atorvaSTATin 40 MG Tab PO SCH (21:20)
[2022-09-18] MEDS: cefTRIAXone 1 GM in Sodium Chloride 0.9% 50 ML IV SCH (22:26)
[2022-09-19] MEDS: Furosemide 40 MG Tab PO SCH ×3 (06:27→22:33)
[2022-09-19] MEDS: Potassium Chloride 20 MEQ Tab.ER PO SCH ×2 (08:25→17:16)
[2022-09-19] MEDS: VANCOmycin 2 GM/400 ML 2 GM in Premix Bag 1 BAG IV SCH ×2 (08:26→20:17)
[2022-09-19] MEDS: Albuterol 8 GM Inhaler INH PRN (08:35)
[2022-09-19] MEDS: Diltiazem 120 MG Cap.CD PO SCH (09:38)
[2022-09-19] MEDS: Metoprolol Succinate 25 MG Tab.ER PO SCH (09:39)
[2022-09-19] MEDS: Losartan 50 MG Tab PO SCH (09:39)
[2022-09-19] MEDS: Ibuprofen 400 MG Tab PO PRN ×2 (09:40→17:19)
[2022-09-19] MEDS: Allopurinol 300 MG Tab PO SCH (09:43)
[2022-09-19] MEDS ORDERED: 50% Dextrose in Water 50 ML Syringe IVPUSH PRN (11:39)
[2022-09-19] MEDS ORDERED: Glucagon,Human Recombinant 1 MG Vial IM PRN (11:39)
[2022-09-19 11:53] LABS: CARBON DIOXIDE,CO2 23.1 mmol/L (21.0-32.0); POTASSIUM,K 3.6 mmol/L (3.5-5.1)
[2022-09-19] MEDS: oxyCODONE 5 MG Tab PO PRN ×2 (13:32→20:16)
[2022-09-19] MEDS ORDERED: Warfarin 5 MG Tab PO SCH (14:00)
[2022-09-19] MEDS: Warfarin Sliding Scale PO SCH (15:14)
[2022-09-19] MEDS: Insulin Aspart 100 Units/ML 3 ML Pen SUBCUT SCH (17:11)
[2022-09-19] MEDS: atorvaSTATin 40 MG Tab PO SCH (20:16)
[2022-09-19] MEDS: cefTRIAXone 1 GM in Sodium Chloride 0.9% 50 ML IV SCH (22:33)
[2022-09-20] MEDS: Ibuprofen 400 MG Tab PO PRN ×3 (04:49→17:13)
[2022-09-20 06:17] LABS: CARBON DIOXIDE,CO2 25.8 mmol/L (21.0-32.0); POTASSIUM,K 3.8 mmol/L (3.5-5.1)
[2022-09-20] MEDS: Furosemide 40 MG Tab PO SCH ×3 (06:57→21:38)
[2022-09-20] MEDS: Insulin Aspart 100 Units/ML 3 ML Pen SUBCUT SCH ×3 (07:51→16:47)
[2022-09-20] MEDS: Allopurinol 300 MG Tab PO SCH (08:04)
[2022-09-20] MEDS: Metoprolol Succinate 25 MG Tab.ER PO SCH (08:04)
[2022-09-20] MEDS: Diltiazem 120 MG Cap.CD PO SCH (08:04)
[2022-09-20] MEDS: Losartan 50 MG Tab PO SCH (08:05)
[2022-09-20] MEDS: Potassium Chloride 20 MEQ Tab.ER PO SCH ×2 (08:20→17:13)
[2022-09-20] MEDS: VANCOmycin 2 GM/400 ML 2 GM in Premix Bag 1 BAG IV SCH ×2 (08:22→20:22)
[2022-09-20] MEDS ORDERED: Warfarin 2.5 MG Tab PO SCH (14:00)
[2022-09-20] MEDS: Warfarin Sliding Scale PO SCH (14:58)
[2022-09-20] MEDS: oxyCODONE 5 MG Tab PO PRN ×2 (15:01→21:38)
[2022-09-20] MEDS: atorvaSTATin 40 MG Tab PO SCH (21:38)
[2022-09-20] MEDS: cefTRIAXone 1 GM in Sodium Chloride 0.9% 50 ML IV SCH (23:09)
[2022-09-21] MEDS: Ibuprofen 400 MG Tab PO PRN ×3 (00:21→12:57)
[2022-09-21] MEDS: oxyCODONE 5 MG Tab PO PRN ×2 (05:04→11:42)
[2022-09-21] MEDS: Furosemide 40 MG Tab PO SCH ×2 (05:04→12:56)
[2022-09-21 07:28] LABS: CARBON DIOXIDE,CO2 25.1 mmol/L (21.0-32.0); POTASSIUM,K 3.7 mmol/L (3.5-5.1)
[2022-09-21] MEDS: Insulin Aspart 100 Units/ML 3 ML Pen SUBCUT SCH ×2 (07:32→12:55)
[2022-09-21] MEDS: Potassium Chloride 20 MEQ Tab.ER PO SCH (08:02)
[2022-09-21] MEDS: VANCOmycin 2 GM/400 ML 2 GM in Premix Bag 1 BAG IV SCH ×2 (08:03→08:50)
[2022-09-21] MEDS ORDERED: Doxycycline 100 MG Cap PO SCH (10:16)
[2022-09-21] MEDS ORDERED: Amoxicillin/Clavulanate K 875-125 MG Tab PO SCH (10:16)
[2022-09-21] MEDS: Diltiazem 120 MG Cap.CD PO SCH (10:19)
[2022-09-21] MEDS: Losartan 50 MG Tab PO SCH (10:24)
[2022-09-21] MEDS: Metoprolol Succinate 25 MG Tab.ER PO SCH (10:25)
[2022-09-21] MEDS: Allopurinol 300 MG Tab PO SCH (10:26)
[2022-09-21] MEDS ORDERED: Warfarin 5 MG Tab PO SCH (14:00)
== END 2022-09-21 13:15 | DRG 638 ==
LOC: MW.ED 13:30 → MW.MS 16:36
PROVIDERS: ADMIT Internal Medicine; ATTEND Internal Medicine
DX: E11.628 Type 2 diabetes mellitus with other skin complications (principal); L03.116 Cellulitis of left lower limb; Z68.43 Body mass index [BMI] 50.0-59.9, adult; I48.91 Unspecified atrial fibrillation; I50.9 Heart failure, unspecified; I87.8 Other specified disorders of veins; I11.0 Hypertensive heart disease with heart failure; I87.2 Venous insufficiency (chronic) (peripheral); F32.A Depression, unspecified; E78.2 Mixed hyperlipidemia; M19.90 Unspecified osteoarthritis, unspecified site; Z20.822 Contact with and (suspected) exposure to COVID-19; G47.33 Obstructive sleep apnea (adult) (pediatric); J44.9 Chronic obstructive pulmonary disease, unspecified; E11.620 Type 2 diabetes mellitus with diabetic dermatitis; E66.01 Morbid (severe) obesity due to excess calories; Z79.84 Long term (current) use of oral hypoglycemic drugs; Z79.01 Long term (current) use of anticoagulants; Z79.899 Other long term (current) drug therapy; Z79.82 Long term (current) use of aspirin; Z90.89 Acquired absence of other organs; Z98.890 Other specified postprocedural states
CPT/HCPCS: 0241U; 36415; 71045; 71045-26; 80048; 80053; 80202; 81001; 82947; 83605; 83735; 83880; 85025; 85027; 85610; 87040; 93005; 93970; 93970-26; 96365; 96375; 97161-GP; 99221; 99231; 99238; 99285-25; A9270-GY; J0690; J0696; J1940; J3370; J3490; J7050; U0002

== ENCOUNTER 2023-04-17 14:28 | Inpatient (IN) | payer MEDICARE, BC ==
[2023-04-17] MEDS: Octyl 2-Cyanoacrylate 1 g/1 mL 1 APPLIC PEN TOP ONE ×2 (16:07→16:52)
[2023-04-17] MEDS ORDERED: Lidocaine/Epineph/Tetracaine 3 ML Syringe ONE (16:13)
[2023-04-17] MEDS ORDERED: Lidocaine/Epineph/Tetracaine 3 ML Syringe TOP ONE (16:14)
[2023-04-17] MEDS ORDERED: Piperacillin/Tazobactam 3.375 GM in Sodium Chloride 0.9% 100 ML IV ONE (16:41)
[2023-04-17 16:54] LABS: BASOPHILS ABSOLUTE AUTO 0.07 K/uL (0.00-0.20); BASOPHILS PERCENT AUTO 0.6 % (0.0-1.0); EOSINOPHILS ABSOLUTE AUTO 0.77 K/uL (0.00-0.45); EOSINOPHILS PERCENT AUTO 6.3 % (0.0-6.0); HEMATOCRIT 34.3 % (42.0-52.0); HEMOGLOBIN 11.3 g/dL (14.0-18.0); IMMATURE GRAN ABSOLUTE AUTO 0.11 K/uL (0.00-0.05); IMMATURE GRAN PERCENT AUTO 0.9 % (0.0-0.4); LYMPHOCYTES ABSOLUTE AUTO 1.71 K/uL (1.00-4.80); MEAN CORPUSCULAR HGB CONC 32.9 g/dL (32.0-36.0); MEAN CORPUSCULAR VOLUME 85.1 fL (83.0-99.0); MEAN PLATELET VOLUME 9.4 fL (9.4-12.4); MONOCYTES ABSOLUTE AUTO 1.05 K/uL (0.00-0.80); MONOCYTES PERCENT AUTO 8.6 % (0.0-8.0); NEUTROPHILS ABSOLUTE AUTO 8.54 K/uL (1.80-7.70); NEUTROPHILS PERCENT AUTO 69.6 % (41.0-71.0); NRBC ABSOLUTE 0.02 K/uL (0.00-0.02); NRBC PERCENT 0.2 /100WBC (0.0-0.2); PLATELET COUNT,PLT 219 K/uL (150-400); RED BLOOD CELL COUNT 4.03 M/uL (4.52-5.90); WHITE BLOOD CELL COUNT,WBC 12.25 K/uL (3.9-11.3)
[2023-04-17] MEDS ORDERED: Lidocaine 1% with EPINEPHrine 1:100,000 20 ML MDV INJECT ONE (16:57)
[2023-04-17] MEDS ORDERED: VANCOmycin 2 GM/400 ML 2 GM in Premix Bag 1 BAG IV ONE (17:15)
[2023-04-17 17:32] LABS: A/G RATIO 0.9 (0.9-1.6); ALBUMIN 3.6 g/dL (3.4-5.0); BILIRUBIN TOTAL 0.7 mg/dL (0.2-1.0); CALCIUM 9.5 mg/dL (8.5-10.1); CARBON DIOXIDE,CO2 25.9 mmol/L (21.0-32.0); EST CRCL DRUG DOSING (CG) 64.84 mL/min; POTASSIUM,K 3.8 mmol/L (3.5-5.1); PROTEIN TOTAL,TP 7.6 g/dL (6.4-8.2)
[2023-04-17] MEDS ORDERED: Sodium Chloride 0.9% 500 ML IV ONE (17:34)
[2023-04-17 18:33] LABS: INR 2.24 (0.86-1.11)
[2023-04-17] MEDS ORDERED: Albuterol 8 GM Inhaler INH PRN (22:20)
[2023-04-17] MEDS ORDERED: oxyCODONE 5 MG Tab PO PRN (22:20)
[2023-04-17] MEDS ORDERED: Glucagon,Human Recombinant 1 MG Vial IM PRN (22:22)
[2023-04-17] MEDS ORDERED: 50% Dextrose in Water 50 ML Syringe IVPUSH PRN (22:22)
[2023-04-17] MEDS ORDERED: Piperacillin/Tazobactam 3.375 GM in Sodium Chloride 0.9% 100 ML IV SCH (22:30)
[2023-04-17] MEDS ORDERED: Warfarin 5 MG Tab PO SCH ×2 (22:30)
[2023-04-17 22:38] LABS: LACTIC ACID 1.1 mmol/L (0.4-2.0)
[2023-04-18] MEDS: Piperacillin/Tazobactam 3.375 GM in Sodium Chloride 0.9% 100 ML IV SCH ×3 (01:16→17:36)
[2023-04-18 06:25] LABS: BASOPHILS ABSOLUTE AUTO 0.07 K/uL (0.00-0.20); BASOPHILS PERCENT AUTO 0.6 % (0.0-1.0); EOSINOPHILS ABSOLUTE AUTO 0.78 K/uL (0.00-0.45); EOSINOPHILS PERCENT AUTO 7.2 % (0.0-6.0); HEMOGLOBIN 10.7 g/dL (14.0-18.0); IMMATURE GRAN ABSOLUTE AUTO 0.06 K/uL (0.00-0.05); IMMATURE GRAN PERCENT AUTO 0.6 % (0.0-0.4); LYMPHOCYTES ABSOLUTE AUTO 1.16 K/uL (1.00-4.80); LYMPHOCYTES PERCENT AUTO 10.7 % (24.0-44.0); MEAN CORPUSCULAR HEMOGLOBIN 27.6 pg (28.0-32.0); MEAN CORPUSCULAR HGB CONC 32.4 g/dL (32.0-36.0); MEAN CORPUSCULAR VOLUME 85.3 fL (83.0-99.0); MEAN PLATELET VOLUME 9.7 fL (9.4-12.4); MONOCYTES ABSOLUTE AUTO 0.77 K/uL (0.00-0.80); MONOCYTES PERCENT AUTO 7.1 % (0.0-8.0); NEUTROPHILS PERCENT AUTO 73.8 % (41.0-71.0); PLATELET COUNT,PLT 199 K/uL (150-400); RED BLOOD CELL COUNT 3.87 M/uL (4.52-5.90); WHITE BLOOD CELL COUNT,WBC 10.84 K/uL (3.9-11.3)
[2023-04-18 06:34] LABS: INR 2.05 (0.86-1.11)
[2023-04-18 06:48] LABS: CALCIUM 9.5 mg/dL (8.5-10.1); CARBON DIOXIDE,CO2 28.3 mmol/L (21.0-32.0); EST CRCL DRUG DOSING (CG) 64.84 mL/min; POTASSIUM,K 3.7 mmol/L (3.5-5.1)
[2023-04-18] MEDS: Insulin Aspart 100 Units/ML 3 ML Pen SUBCUT SCH ×3 (07:11→16:44)
[2023-04-18] MEDS ORDERED: LOSARTAN 100 MG PO SCH (09:00)
[2023-04-18] MEDS ORDERED: Metoprolol Succinate 25 MG Tab.ER PO SCH (09:00)
[2023-04-18] MEDS ORDERED: Non-Formulary Medication 1 Each (Fluticasone/Vilanterol [Breo Ellipta 200-25 Mcg Inhalatio INH SCH (09:00)
[2023-04-18] MEDS ORDERED: Diltiazem 120 MG Cap.CD PO SCH (09:00)
[2023-04-18] MEDS: Allopurinol 300 MG Tab PO SCH (09:09)
[2023-04-18] MEDS: Metoprolol Succinate 25 MG Tab.ER PO SCH (09:09)
[2023-04-18] MEDS: Losartan 50 MG Tab PO SCH (09:09)
[2023-04-18] MEDS: Diltiazem 120 MG Cap.CD PO SCH (09:10)
[2023-04-18] MEDS ORDERED: Acetaminophen 500 MG Tab PO ONE (09:59)
[2023-04-18 12:15] LABS: BILIRUBIN,URINE NEGATIVE (NEGATIVE); COLOR,URINE YELLOW; GLUCOSE,URINE NEGATIVE (NEGATIVE); KETONES,URINE NEGATIVE (NEGATIVE); LEUKOCYTE ESTERASE,URINE NEGATIVE (NEGATIVE); NITRITE,URINE NEGATIVE (NEGATIVE); OCCULT BLOOD,URINE NEGATIVE (NEGATIVE); PROTEIN,URINE NEGATIVE (NEGATIVE); UROBILINOGEN,URINE 0.2 EU/dL (<2.0)
[2023-04-18 12:25] LABS: APPEARANCE,URINE HAZY
[2023-04-18] MEDS: Furosemide 40 MG Tab PO SCH ×2 (13:56→21:11)
[2023-04-18] MEDS ORDERED: Warfarin 5 MG Tab PO SCH (14:00)
[2023-04-18] MEDS ORDERED: atorvaSTATin 40 MG Tab PO SCH (21:00)
[2023-04-18] MEDS: Acetaminophen 325 MG Tab PO PRN (21:11)
[2023-04-18] MEDS: Formoterol/Mometasone 200-5 MCG 8.8 GM Inhaler INH SCH (21:13)
[2023-04-19] MEDS: Piperacillin/Tazobactam 3.375 GM in Sodium Chloride 0.9% 100 ML IV SCH ×2 (01:01→09:49)
[2023-04-19] MEDS: Furosemide 40 MG Tab PO SCH (05:53)
[2023-04-19] MEDS: Formoterol/Mometasone 200-5 MCG 8.8 GM Inhaler INH SCH (05:54)
[2023-04-19 06:14] LABS: BASOPHILS ABSOLUTE AUTO 0.07 K/uL (0.00-0.20); BASOPHILS PERCENT AUTO 0.7 % (0.0-1.0); EOSINOPHILS ABSOLUTE AUTO 0.89 K/uL (0.00-0.45); EOSINOPHILS PERCENT AUTO 9.3 % (0.0-6.0); HEMATOCRIT 31.6 % (42.0-52.0); HEMOGLOBIN 10.2 g/dL (14.0-18.0); IMMATURE GRAN ABSOLUTE AUTO 0.06 K/uL (0.00-0.05); IMMATURE GRAN PERCENT AUTO 0.6 % (0.0-0.4); LYMPHOCYTES ABSOLUTE AUTO 1.23 K/uL (1.00-4.80); LYMPHOCYTES PERCENT AUTO 12.8 % (24.0-44.0); MEAN CORPUSCULAR HEMOGLOBIN 27.6 pg (28.0-32.0); MEAN CORPUSCULAR HGB CONC 32.3 g/dL (32.0-36.0); MEAN CORPUSCULAR VOLUME 85.6 fL (83.0-99.0); MEAN PLATELET VOLUME 9.4 fL (9.4-12.4); MONOCYTES ABSOLUTE AUTO 0.73 K/uL (0.00-0.80); MONOCYTES PERCENT AUTO 7.6 % (0.0-8.0); NEUTROPHILS ABSOLUTE AUTO 6.63 K/uL (1.80-7.70); PLATELET COUNT,PLT 190 K/uL (150-400); RED BLOOD CELL COUNT 3.69 M/uL (4.52-5.90); WHITE BLOOD CELL COUNT,WBC 9.61 K/uL (3.9-11.3)
[2023-04-19 06:29] LABS: INR 1.77 (0.86-1.11)
[2023-04-19 06:41] LABS: A/G RATIO 0.9 (0.9-1.6); ALBUMIN 3.4 g/dL (3.4-5.0); BILIRUBIN TOTAL 0.8 mg/dL (0.2-1.0); CALCIUM 9.2 mg/dL (8.5-10.1); CARBON DIOXIDE,CO2 28.2 mmol/L (21.0-32.0); CREATININE 0.9 mg/dL (0.8-1.3); EST CRCL DRUG DOSING (CG) 72.05 mL/min; POTASSIUM,K 3.5 mmol/L (3.5-5.1)
[2023-04-19] MEDS: Insulin Aspart 100 Units/ML 3 ML Pen SUBCUT SCH ×2 (08:18→12:20)
[2023-04-19] MEDS ORDERED: Meloxicam 7.5 MG Tab PO SCH (09:00)
[2023-04-19] MEDS: Allopurinol 300 MG Tab PO SCH (09:35)
[2023-04-19] MEDS: Metoprolol Succinate 25 MG Tab.ER PO SCH (09:35)
[2023-04-19] MEDS: Diltiazem 120 MG Cap.CD PO SCH (09:36)
[2023-04-19] MEDS: Losartan 50 MG Tab PO SCH (09:37)
[2023-04-19] MEDS: Acetaminophen 325 MG Tab PO PRN (09:42)
[2023-04-19] MEDS ORDERED: Pantoprazole 40 MG Tab.CR PO SCH (10:30)
[2023-04-19] MEDS ORDERED: Warfarin 2.5 MG Tab PO SCH (14:00)
== END 2023-04-19 12:50 | disposition home or self-care (01) | DRG 603 ==
LOC: MW.ED 14:28 → MW.MS 18:19 → MW.ED 19:37
PROVIDERS: ADMIT Internal Medicine; ATTEND Internal Medicine
DX: L03.115 Cellulitis of right lower limb (principal); E87.20 Acidosis, unspecified; L97.919 Non-pressure chronic ulcer of unspecified part of right lower leg with unspecified severity; Z68.43 Body mass index [BMI] 50.0-59.9, adult; L97.929 Non-pressure chronic ulcer of unspecified part of left lower leg with unspecified severity; E11.622 Type 2 diabetes mellitus with other skin ulcer; I87.8 Other specified disorders of veins; E11.620 Type 2 diabetes mellitus with diabetic dermatitis; D72.829 Elevated white blood cell count, unspecified; I87.2 Venous insufficiency (chronic) (peripheral); E66.01 Morbid (severe) obesity due to excess calories; I48.91 Unspecified atrial fibrillation; I11.0 Hypertensive heart disease with heart failure; I50.9 Heart failure, unspecified; J44.9 Chronic obstructive pulmonary disease, unspecified; E78.00 Pure hypercholesterolemia, unspecified; G47.30 Sleep apnea, unspecified; M19.90 Unspecified osteoarthritis, unspecified site; F41.9 Anxiety disorder, unspecified; F32.A Depression, unspecified; Z90.89 Acquired absence of other organs; E66.9 Obesity, unspecified; Z79.01 Long term (current) use of anticoagulants; Z79.84 Long term (current) use of oral hypoglycemic drugs; Z98.890 Other specified postprocedural states; Z79.899 Other long term (current) drug therapy
CPT/HCPCS: 36415; 80053; 81003; 85025; 85610; 85730; 87040 ×2; 96365; 99284; J2543; J3490; J7030; 80048; 80202; 82947; 83605; 97140-GO; 97165-GO; 99285; A9270-GY; J3370; J7050

== ENCOUNTER 2023-05-14 11:18 | Inpatient (IN) | payer MEDICARE, BC ==
[2023-05-14] MEDS ORDERED: Ondansetron 4 MG/2 ML SDV IVPUSH PRN (11:19)
[2023-05-14] MEDS ORDERED: Sodium Chloride 0.9% 2.5 ML Syringe FLUSH PRN (11:19)
[2023-05-14] MEDS ORDERED: Sodium Chloride 0.9% 10 ML Syringe FLUSH PRN (11:19)
[2023-05-14] MEDS ORDERED: oxyCODONE 5 MG Tab PO PRN (11:33)
[2023-05-14 12:26] LABS: BASOPHILS ABSOLUTE AUTO 0.05 K/uL (0.00-0.20); BASOPHILS PERCENT AUTO 0.4 % (0.0-1.0); EOSINOPHILS ABSOLUTE AUTO 0.33 K/uL (0.00-0.45); EOSINOPHILS PERCENT AUTO 2.8 % (0.0-6.0); HEMATOCRIT 36.9 % (42.0-52.0); HEMOGLOBIN 12.1 g/dL (14.0-18.0); IMMATURE GRAN ABSOLUTE AUTO 0.15 K/uL (0.00-0.05); IMMATURE GRAN PERCENT AUTO 1.3 % (0.0-0.4); LYMPHOCYTES ABSOLUTE AUTO 1.18 K/uL (1.00-4.80); LYMPHOCYTES PERCENT AUTO 9.8 % (24.0-44.0); MEAN CORPUSCULAR HEMOGLOBIN 27.4 pg (28.0-32.0); MEAN CORPUSCULAR HGB CONC 32.8 g/dL (32.0-36.0); MEAN CORPUSCULAR VOLUME 83.7 fL (83.0-99.0); MEAN PLATELET VOLUME 9.7 fL (9.4-12.4); MONOCYTES ABSOLUTE AUTO 0.75 K/uL (0.00-0.80); MONOCYTES PERCENT AUTO 6.3 % (0.0-8.0); NEUTROPHILS ABSOLUTE AUTO 9.52 K/uL (1.80-7.70); NEUTROPHILS PERCENT AUTO 79.4 % (41.0-71.0); PLATELET COUNT,PLT 290 K/uL (150-400); RED BLOOD CELL COUNT 4.41 M/uL (4.52-5.90); WHITE BLOOD CELL COUNT,WBC 11.98 K/uL (3.9-11.3)
[2023-05-14 12:39] LABS: INR 1.5 (0.86-1.11)
[2023-05-14 12:51] LABS: CALCIUM 9.9 mg/dL (8.5-10.1); CARBON DIOXIDE,CO2 24.9 mmol/L (21.0-32.0); CREATININE 1.2 mg/dL (0.8-1.3); EST CRCL DRUG DOSING (CG) 54.03 mL/min; MAGNESIUM 2.5 mg/dL (1.8-2.4); POTASSIUM,K 4.6 mmol/L (3.5-5.1)
[2023-05-14] MEDS ORDERED: Meloxicam 7.5 MG Tab PO PRN (13:03)
[2023-05-14] MEDS ORDERED: Albuterol 8 GM Inhaler INH PRN (13:03)
[2023-05-14] MEDS ORDERED: VANCOmycin 2 GM/400 ML 2 GM in Premix Bag 1 BAG IV ONE (13:30)
[2023-05-14] MEDS: Piperacillin/Tazobactam 4.5 GM in Sodium Chloride 0.9% 100 ML IV SCH ×2 (13:30→18:25)
[2023-05-14] MEDS ORDERED: Warfarin 5 MG Tab PO SCH (14:00)
[2023-05-14] MEDS ORDERED: Warfarin 5 MG Tab PO ONE (14:15)
[2023-05-14] MEDS: traMADol 50 MG Tab PO SCH ×2 (15:05→19:41)
[2023-05-14] MEDS ORDERED: 50% Dextrose in Water 50 ML Syringe IVPUSH PRN (15:32)
[2023-05-14] MEDS ORDERED: Glucagon,Human Recombinant 1 MG Vial IM PRN (15:32)
[2023-05-14] MEDS ORDERED: Metoprolol Succinate 25 MG Tab.ER PO ONE (15:38)
[2023-05-14] MEDS ORDERED: Diltiazem 120 MG Cap.CD PO ONE (15:38)
[2023-05-14] MEDS: Furosemide 40 MG Tab PO SCH ×2 (16:23→20:52)
[2023-05-14] MEDS: Warfarin Sliding Scale SCH (17:22)
[2023-05-14] MEDS: Insulin Aspart 100 Units/ML 3 ML Pen SUBCUT SCH (17:22)
[2023-05-14] MEDS ORDERED: Diltiazem 25 MG/5 ML SDV IVPUSH ONE (18:35)
[2023-05-14] MEDS: atorvaSTATin 40 MG Tab PO SCH (20:51)
[2023-05-14] MEDS: Formoterol/Mometasone 200-5 MCG 8.8 GM Inhaler INH SCH (20:51)
[2023-05-14] MEDS ORDERED: Diltiazem 25 MG/5 ML SDV IVPUSH PRN (23:08)
[2023-05-15] MEDS: Acetaminophen 325 MG Tab PO PRN ×4 (01:33→23:58)
[2023-05-15] MEDS: Piperacillin/Tazobactam 4.5 GM in Sodium Chloride 0.9% 100 ML IV SCH ×2 (01:34→06:43)
[2023-05-15] MEDS: traMADol 50 MG Tab PO SCH ×2 (04:32→08:16)
[2023-05-15 06:32] LABS: BASOPHILS ABSOLUTE AUTO 0.05 K/uL (0.00-0.20); BASOPHILS PERCENT AUTO 0.4 % (0.0-1.0); EOSINOPHILS ABSOLUTE AUTO 0.39 K/uL (0.00-0.45); EOSINOPHILS PERCENT AUTO 2.9 % (0.0-6.0); HEMATOCRIT 36.4 % (42.0-52.0); HEMOGLOBIN 11.9 g/dL (14.0-18.0); IMMATURE GRAN ABSOLUTE AUTO 0.09 K/uL (0.00-0.05); IMMATURE GRAN PERCENT AUTO 0.7 % (0.0-0.4); LYMPHOCYTES ABSOLUTE AUTO 1.19 K/uL (1.00-4.80); LYMPHOCYTES PERCENT AUTO 8.7 % (24.0-44.0); MEAN CORPUSCULAR HEMOGLOBIN 27.5 pg (28.0-32.0); MEAN CORPUSCULAR HGB CONC 32.7 g/dL (32.0-36.0); MEAN CORPUSCULAR VOLUME 84.1 fL (83.0-99.0); MEAN PLATELET VOLUME 9.5 fL (9.4-12.4); MONOCYTES ABSOLUTE AUTO 0.84 K/uL (0.00-0.80); MONOCYTES PERCENT AUTO 6.2 % (0.0-8.0); NEUTROPHILS ABSOLUTE AUTO 11.08 K/uL (1.80-7.70); NEUTROPHILS PERCENT AUTO 81.1 % (41.0-71.0); PLATELET COUNT,PLT 247 K/uL (150-400); RED BLOOD CELL COUNT 4.33 M/uL (4.52-5.90); WHITE BLOOD CELL COUNT,WBC 13.64 K/uL (3.9-11.3)
[2023-05-15 06:35] LABS: INR 1.64 (0.86-1.11)
[2023-05-15] MEDS: Pantoprazole 40 MG Tab.CR PO SCH (06:44)
[2023-05-15 06:46] LABS: CALCIUM 9.1 mg/dL (8.5-10.1); CARBON DIOXIDE,CO2 24.5 mmol/L (21.0-32.0); CREATININE 1.2 mg/dL (0.8-1.3); EST CRCL DRUG DOSING (CG) 54.03 mL/min; MAGNESIUM 2.4 mg/dL (1.8-2.4); POTASSIUM,K 4.3 mmol/L (3.5-5.1)
[2023-05-15] MEDS: Insulin Aspart 100 Units/ML 3 ML Pen SUBCUT SCH ×3 (07:39→16:13)
[2023-05-15] MEDS ORDERED: Piperacillin/Tazobactam 4.5 GM in Sodium Chloride 0.9% 100 ML IV SCH ×2 (07:45→15:00)
[2023-05-15] MEDS: Allopurinol 300 MG Tab PO SCH (08:17)
[2023-05-15] MEDS: Losartan 50 MG Tab PO SCH (08:18)
[2023-05-15] MEDS: Diltiazem 120 MG Cap.CD PO SCH (08:20)
[2023-05-15] MEDS: Metoprolol Succinate 25 MG Tab.ER PO SCH (08:20)
[2023-05-15] MEDS: Formoterol/Mometasone 200-5 MCG 8.8 GM Inhaler INH SCH ×3 (08:23→20:05)
[2023-05-15] MEDS: Furosemide 40 MG Tab PO SCH ×5 (10:01→20:05)
[2023-05-15] MEDS: metroNIDAZOLE/Normal Saline 500 MG in Premix Bag 1 BAG IV SCH ×2 (11:28→18:27)
[2023-05-15] MEDS ORDERED: Cefepime 2 GM in Sodium Chloride 0.9% 50 ML IV SCH (12:00)
[2023-05-15] MEDS: Cefepime 2 GM in Sodium Chloride 0.9% 50 ML IV SCH ×2 (13:01→19:41)
[2023-05-15] MEDS ORDERED: VANCOmycin 1.5 GM/300 ML 1.5 GM in Premix Bag 1 BAG IV SCH (13:30)
[2023-05-15] MEDS ORDERED: VANCOmycin 2 GM/400 ML 2 GM in Premix Bag 1 BAG IV SCH (13:30)
[2023-05-15] MEDS ORDERED: Warfarin 5 MG Tab PO SCH (14:00)
[2023-05-15] MEDS: Warfarin Sliding Scale SCH (14:32)
[2023-05-15] MEDS ORDERED: Sennosides 8.6 MG Tab PO PRN (15:11)
[2023-05-15] MEDS: atorvaSTATin 40 MG Tab PO SCH ×2 (19:50→20:05)
[2023-05-16] MEDS: metroNIDAZOLE/Normal Saline 500 MG in Premix Bag 1 BAG IV SCH ×3 (02:59→18:40)
[2023-05-16] MEDS: Cefepime 2 GM in Sodium Chloride 0.9% 50 ML IV SCH ×3 (04:06→20:05)
[2023-05-16] MEDS: Acetaminophen 325 MG Tab PO PRN ×3 (05:43→19:28)
[2023-05-16] MEDS: Pantoprazole 40 MG Tab.CR PO SCH ×2 (06:17→06:38)
[2023-05-16 07:24] LABS: BASOPHILS ABSOLUTE AUTO 0.05 K/uL (0.00-0.20); BASOPHILS PERCENT AUTO 0.5 % (0.0-1.0); EOSINOPHILS ABSOLUTE AUTO 0.51 K/uL (0.00-0.45); HEMATOCRIT 36.9 % (42.0-52.0); HEMOGLOBIN 12.2 g/dL (14.0-18.0); LYMPHOCYTES ABSOLUTE AUTO 1.11 K/uL (1.00-4.80); LYMPHOCYTES PERCENT AUTO 10.9 % (24.0-44.0); MEAN CORPUSCULAR HEMOGLOBIN 27.4 pg (28.0-32.0); MEAN CORPUSCULAR HGB CONC 33.1 g/dL (32.0-36.0); MEAN CORPUSCULAR VOLUME 82.9 fL (83.0-99.0); MEAN PLATELET VOLUME 9.5 fL (9.4-12.4); MONOCYTES ABSOLUTE AUTO 0.82 K/uL (0.00-0.80); MONOCYTES PERCENT AUTO 8.1 % (0.0-8.0); NEUTROPHILS ABSOLUTE AUTO 7.57 K/uL (1.80-7.70); NEUTROPHILS PERCENT AUTO 74.5 % (41.0-71.0); PLATELET COUNT,PLT 244 K/uL (150-400); RED BLOOD CELL COUNT 4.45 M/uL (4.52-5.90); WHITE BLOOD CELL COUNT,WBC 10.16 K/uL (3.9-11.3)
[2023-05-16] MEDS: Insulin Aspart 100 Units/ML 3 ML Pen SUBCUT SCH ×3 (07:29→17:17)
[2023-05-16 07:34] LABS: INR 1.5 (0.86-1.11)
[2023-05-16 07:39] LABS: CALCIUM 8.8 mg/dL (8.5-10.1); CREATININE 1.1 mg/dL (0.8-1.3); EST CRCL DRUG DOSING (CG) 58.95 mL/min; MAGNESIUM 2.1 mg/dL (1.8-2.4); POTASSIUM,K 3.8 mmol/L (3.5-5.1)
[2023-05-16] MEDS: Losartan 50 MG Tab PO SCH (08:52)
[2023-05-16] MEDS: Metoprolol Succinate 25 MG Tab.ER PO SCH (08:53)
[2023-05-16] MEDS: Allopurinol 300 MG Tab PO SCH (08:54)
[2023-05-16] MEDS: Diltiazem 120 MG Cap.CD PO SCH (08:55)
[2023-05-16] MEDS: Formoterol/Mometasone 200-5 MCG 8.8 GM Inhaler INH SCH ×2 (08:59→20:05)
[2023-05-16] MEDS: Furosemide 40 MG Tab PO SCH ×5 (09:04→20:04)
[2023-05-16] MEDS ORDERED: Warfarin 5 MG Tab PO ONE (14:00)
[2023-05-16] MEDS: Warfarin Sliding Scale SCH (14:01)
[2023-05-16] MEDS ORDERED: Furosemide 40 MG Tab PO SCH (16:00)
[2023-05-16] MEDS: Docusate Sodium 100 MG Cap PO PRN (19:28)
[2023-05-16] MEDS: atorvaSTATin 40 MG Tab PO SCH (20:04)
[2023-05-17] MEDS: metroNIDAZOLE/Normal Saline 500 MG in Premix Bag 1 BAG IV SCH ×3 (02:32→18:59)
[2023-05-17] MEDS: Acetaminophen 325 MG Tab PO PRN ×2 (03:59→18:58)
[2023-05-17] MEDS: Cefepime 2 GM in Sodium Chloride 0.9% 50 ML IV SCH ×3 (04:18→20:03)
[2023-05-17] MEDS: Pantoprazole 40 MG Tab.CR PO SCH ×2 (06:22→07:22)
[2023-05-17 06:31] LABS: BASOPHILS ABSOLUTE AUTO 0.04 K/uL (0.00-0.20); BASOPHILS PERCENT AUTO 0.4 % (0.0-1.0); EOSINOPHILS ABSOLUTE AUTO 0.41 K/uL (0.00-0.45); EOSINOPHILS PERCENT AUTO 3.7 % (0.0-6.0); HEMATOCRIT 33.7 % (42.0-52.0); HEMOGLOBIN 11.3 g/dL (14.0-18.0); IMMATURE GRAN ABSOLUTE AUTO 0.09 K/uL (0.00-0.05); IMMATURE GRAN PERCENT AUTO 0.8 % (0.0-0.4); LYMPHOCYTES ABSOLUTE AUTO 1.18 K/uL (1.00-4.80); LYMPHOCYTES PERCENT AUTO 10.6 % (24.0-44.0); MEAN CORPUSCULAR HGB CONC 33.5 g/dL (32.0-36.0); MEAN CORPUSCULAR VOLUME 83.6 fL (83.0-99.0); MEAN PLATELET VOLUME 9.4 fL (9.4-12.4); MONOCYTES ABSOLUTE AUTO 0.92 K/uL (0.00-0.80); MONOCYTES PERCENT AUTO 8.3 % (0.0-8.0); NEUTROPHILS ABSOLUTE AUTO 8.47 K/uL (1.80-7.70); NEUTROPHILS PERCENT AUTO 76.2 % (41.0-71.0); PLATELET COUNT,PLT 244 K/uL (150-400); RED BLOOD CELL COUNT 4.03 M/uL (4.52-5.90); WHITE BLOOD CELL COUNT,WBC 11.11 K/uL (3.9-11.3)
[2023-05-17 06:51] LABS: CALCIUM 8.7 mg/dL (8.5-10.1); EST CRCL DRUG DOSING (CG) 64.84 mL/min; MAGNESIUM 2.4 mg/dL (1.8-2.4); POTASSIUM,K 3.7 mmol/L (3.5-5.1)
[2023-05-17 06:52] LABS: INR 1.51 (0.86-1.11)
[2023-05-17] MEDS: Insulin Aspart 100 Units/ML 3 ML Pen SUBCUT SCH ×3 (07:45→16:32)
[2023-05-17] MEDS: Diltiazem 120 MG Cap.CD PO SCH (09:03)
[2023-05-17] MEDS: Allopurinol 300 MG Tab PO SCH (09:04)
[2023-05-17] MEDS: Losartan 50 MG Tab PO SCH (09:04)
[2023-05-17] MEDS: Metoprolol Succinate 25 MG Tab.ER PO SCH (09:04)
[2023-05-17] MEDS: Furosemide 40 MG Tab PO SCH ×4 (09:06→20:03)
[2023-05-17] MEDS: Formoterol/Mometasone 200-5 MCG 8.8 GM Inhaler INH SCH ×2 (09:07→20:07)
[2023-05-17] MEDS ORDERED: Gabapentin 100 MG Cap PO ONE (11:02)
[2023-05-17] MEDS: Acetaminophen 500 MG Tab PO SCH ×2 (11:46→22:59)
[2023-05-17] MEDS ORDERED: Warfarin 2.5 MG Tab PO ONE (14:00)
[2023-05-17] MEDS: Docusate Sodium 100 MG Cap PO PRN (14:45)
[2023-05-17] MEDS: Warfarin Sliding Scale SCH (16:08)
[2023-05-17] MEDS: atorvaSTATin 40 MG Tab PO SCH (20:02)
[2023-05-18] MEDS: metroNIDAZOLE/Normal Saline 500 MG in Premix Bag 1 BAG IV SCH (02:12)
[2023-05-18] MEDS: Cefepime 2 GM in Sodium Chloride 0.9% 50 ML IV SCH ×3 (03:44→21:06)
[2023-05-18] MEDS: Pantoprazole 40 MG Tab.CR PO SCH ×2 (06:05→06:32)
[2023-05-18] MEDS: Insulin Aspart 100 Units/ML 3 ML Pen SUBCUT SCH ×3 (06:49→16:33)
[2023-05-18 07:04] LABS: BASOPHILS ABSOLUTE AUTO 0.05 K/uL (0.00-0.20); BASOPHILS PERCENT AUTO 0.5 % (0.0-1.0); EOSINOPHILS ABSOLUTE AUTO 0.38 K/uL (0.00-0.45); EOSINOPHILS PERCENT AUTO 3.5 % (0.0-6.0); HEMATOCRIT 35.3 % (42.0-52.0); HEMOGLOBIN 11.7 g/dL (14.0-18.0); IMMATURE GRAN ABSOLUTE AUTO 0.08 K/uL (0.00-0.05); IMMATURE GRAN PERCENT AUTO 0.7 % (0.0-0.4); LYMPHOCYTES ABSOLUTE AUTO 1.25 K/uL (1.00-4.80); LYMPHOCYTES PERCENT AUTO 11.4 % (24.0-44.0); MEAN CORPUSCULAR HEMOGLOBIN 27.4 pg (28.0-32.0); MEAN CORPUSCULAR HGB CONC 33.1 g/dL (32.0-36.0); MEAN CORPUSCULAR VOLUME 82.7 fL (83.0-99.0); MEAN PLATELET VOLUME 9.5 fL (9.4-12.4); MONOCYTES PERCENT AUTO 9.2 % (0.0-8.0); NEUTROPHILS ABSOLUTE AUTO 8.16 K/uL (1.80-7.70); NEUTROPHILS PERCENT AUTO 74.7 % (41.0-71.0); PLATELET COUNT,PLT 250 K/uL (150-400); RED BLOOD CELL COUNT 4.27 M/uL (4.52-5.90); WHITE BLOOD CELL COUNT,WBC 10.92 K/uL (3.9-11.3)
[2023-05-18 07:24] LABS: CALCIUM 8.9 mg/dL (8.5-10.1); CREATININE 1.1 mg/dL (0.8-1.3); EST CRCL DRUG DOSING (CG) 58.95 mL/min; POTASSIUM,K 3.6 mmol/L (3.5-5.1)
[2023-05-18] MEDS: Allopurinol 300 MG Tab PO SCH (08:08)
[2023-05-18] MEDS: Metoprolol Succinate 25 MG Tab.ER PO SCH (08:08)
[2023-05-18] MEDS: Diltiazem 120 MG Cap.CD PO SCH (08:09)
[2023-05-18] MEDS: Losartan 50 MG Tab PO SCH (08:10)
[2023-05-18] MEDS: Furosemide 40 MG Tab PO SCH ×4 (08:13→20:53)
[2023-05-18] MEDS: Formoterol/Mometasone 200-5 MCG 8.8 GM Inhaler INH SCH ×2 (09:21→20:54)
[2023-05-18] MEDS ORDERED: Acetaminophen 500 MG Tab PO ONE (10:03)
[2023-05-18] MEDS ORDERED: Lanolin/Mineral Oil/NaCl/Petrolatum Lotion 177 ML Bottle TOP SCH (11:00)
[2023-05-18] MEDS: Acetaminophen 500 MG Tab PO SCH (11:02)
[2023-05-18 13:09] LABS: INR 1.68 (0.86-1.11)
[2023-05-18] MEDS: Warfarin Sliding Scale SCH (13:44)
[2023-05-18] MEDS ORDERED: Warfarin 5 MG Tab PO ONE (14:00)
[2023-05-18] MEDS ORDERED: Warfarin 2.5 MG Tab PO ONE (14:00)
[2023-05-18] MEDS: Acetaminophen 325 MG Tab PO PRN (17:24)
[2023-05-18] MEDS: metroNIDAZOLE 250 MG Tab PO SCH (20:52)
[2023-05-18] MEDS: atorvaSTATin 40 MG Tab PO SCH (20:53)
[2023-05-19] MEDS: Acetaminophen 500 MG Tab PO SCH ×3 (00:02→20:38)
[2023-05-19] MEDS: Cefepime 2 GM in Sodium Chloride 0.9% 50 ML IV SCH ×3 (04:26→19:42)
[2023-05-19 06:24] LABS: BASOPHILS ABSOLUTE AUTO 0.06 K/uL (0.00-0.20); BASOPHILS PERCENT AUTO 0.6 % (0.0-1.0); EOSINOPHILS ABSOLUTE AUTO 0.45 K/uL (0.00-0.45); EOSINOPHILS PERCENT AUTO 4.4 % (0.0-6.0); HEMATOCRIT 33.2 % (42.0-52.0); IMMATURE GRAN ABSOLUTE AUTO 0.09 K/uL (0.00-0.05); IMMATURE GRAN PERCENT AUTO 0.9 % (0.0-0.4); LYMPHOCYTES ABSOLUTE AUTO 1.49 K/uL (1.00-4.80); LYMPHOCYTES PERCENT AUTO 14.6 % (24.0-44.0); MEAN CORPUSCULAR HEMOGLOBIN 27.6 pg (28.0-32.0); MEAN CORPUSCULAR HGB CONC 33.1 g/dL (32.0-36.0); MEAN CORPUSCULAR VOLUME 83.4 fL (83.0-99.0); MEAN PLATELET VOLUME 9.3 fL (9.4-12.4); MONOCYTES ABSOLUTE AUTO 0.77 K/uL (0.00-0.80); MONOCYTES PERCENT AUTO 7.6 % (0.0-8.0); NEUTROPHILS ABSOLUTE AUTO 7.32 K/uL (1.80-7.70); NEUTROPHILS PERCENT AUTO 71.9 % (41.0-71.0); PLATELET COUNT,PLT 243 K/uL (150-400); RED BLOOD CELL COUNT 3.98 M/uL (4.52-5.90); WHITE BLOOD CELL COUNT,WBC 10.18 K/uL (3.9-11.3)
[2023-05-19] MEDS: Pantoprazole 40 MG Tab.CR PO SCH (06:39)
[2023-05-19 06:47] LABS: CALCIUM 8.9 mg/dL (8.5-10.1); CARBON DIOXIDE,CO2 22.5 mmol/L (21.0-32.0); CREATININE 1.1 mg/dL (0.8-1.3); EST CRCL DRUG DOSING (CG) 58.95 mL/min; POTASSIUM,K 3.8 mmol/L (3.5-5.1)
[2023-05-19] MEDS: Insulin Aspart 100 Units/ML 3 ML Pen SUBCUT SCH ×3 (08:39→16:02)
[2023-05-19] MEDS: metroNIDAZOLE 250 MG Tab PO SCH ×2 (09:08→20:29)
[2023-05-19] MEDS: Losartan 50 MG Tab PO SCH (09:08)
[2023-05-19] MEDS: Metoprolol Succinate 25 MG Tab.ER PO SCH (09:09)
[2023-05-19] MEDS: Diltiazem 120 MG Cap.CD PO SCH (09:10)
[2023-05-19] MEDS: Furosemide 40 MG Tab PO SCH ×4 (09:10→20:39)
[2023-05-19] MEDS: Allopurinol 300 MG Tab PO SCH (09:10)
[2023-05-19] MEDS: Formoterol/Mometasone 200-5 MCG 8.8 GM Inhaler INH SCH ×2 (09:18→20:08)
[2023-05-19 10:46] LABS: INR 1.72 (0.86-1.11)
[2023-05-19] MEDS ORDERED: diphenhydrAMINE 25 MG Cap PO ONE (12:17)
[2023-05-19] MEDS ORDERED: Warfarin 2.5 MG Tab PO ONE (14:00)
[2023-05-19] MEDS: Warfarin Sliding Scale SCH (15:45)
[2023-05-19] MEDS: Docusate Sodium 100 MG Cap PO PRN (18:16)
[2023-05-19] MEDS ORDERED: Acetaminophen 325 MG Tab ONE (20:24)
[2023-05-19] MEDS: Acetaminophen 325 MG Tab PO PRN (20:28)
[2023-05-19] MEDS: atorvaSTATin 40 MG Tab PO SCH (20:29)
[2023-05-20] MEDS: Cefepime 2 GM in Sodium Chloride 0.9% 50 ML IV SCH ×3 (03:52→19:36)
[2023-05-20] MEDS: Acetaminophen 325 MG Tab PO PRN ×2 (04:17→12:55)
[2023-05-20] MEDS: Pantoprazole 40 MG Tab.CR PO SCH ×2 (06:08→06:34)
[2023-05-20] MEDS: Insulin Aspart 100 Units/ML 3 ML Pen SUBCUT SCH ×3 (07:48→19:13)
[2023-05-20] MEDS: Metoprolol Succinate 25 MG Tab.ER PO SCH (08:08)
[2023-05-20] MEDS: Allopurinol 300 MG Tab PO SCH (08:08)
[2023-05-20] MEDS: Diltiazem 120 MG Cap.CD PO SCH (08:09)
[2023-05-20] MEDS: Acetaminophen 500 MG Tab PO SCH ×2 (08:09→21:02)
[2023-05-20 08:10] LABS: BASOPHILS ABSOLUTE AUTO 0.05 K/uL (0.00-0.20); BASOPHILS PERCENT AUTO 0.4 % (0.0-1.0); EOSINOPHILS ABSOLUTE AUTO 0.44 K/uL (0.00-0.45); EOSINOPHILS PERCENT AUTO 3.7 % (0.0-6.0); HEMOGLOBIN 11.5 g/dL (14.0-18.0); IMMATURE GRAN ABSOLUTE AUTO 0.11 K/uL (0.00-0.05); IMMATURE GRAN PERCENT AUTO 0.9 % (0.0-0.4); LYMPHOCYTES ABSOLUTE AUTO 1.59 K/uL (1.00-4.80); LYMPHOCYTES PERCENT AUTO 13.4 % (24.0-44.0); MEAN CORPUSCULAR HGB CONC 33.8 g/dL (32.0-36.0); MEAN CORPUSCULAR VOLUME 82.7 fL (83.0-99.0); MEAN PLATELET VOLUME 9.4 fL (9.4-12.4); MONOCYTES ABSOLUTE AUTO 0.94 K/uL (0.00-0.80); MONOCYTES PERCENT AUTO 7.9 % (0.0-8.0); NEUTROPHILS ABSOLUTE AUTO 8.75 K/uL (1.80-7.70); NEUTROPHILS PERCENT AUTO 73.7 % (41.0-71.0); PLATELET COUNT,PLT 248 K/uL (150-400); RED BLOOD CELL COUNT 4.11 M/uL (4.52-5.90); WHITE BLOOD CELL COUNT,WBC 11.88 K/uL (3.9-11.3)
[2023-05-20] MEDS: metroNIDAZOLE 250 MG Tab PO SCH ×2 (08:10→21:01)
[2023-05-20] MEDS: Losartan 50 MG Tab PO SCH (08:15)
[2023-05-20 08:37] LABS: CALCIUM 9.3 mg/dL (8.5-10.1); CARBON DIOXIDE,CO2 23.3 mmol/L (21.0-32.0); CREATININE 1.1 mg/dL (0.8-1.3); EST CRCL DRUG DOSING (CG) 58.95 mL/min; POTASSIUM,K 3.9 mmol/L (3.5-5.1)
[2023-05-20] MEDS: Furosemide 40 MG Tab PO SCH ×4 (09:50→21:01)
[2023-05-20] MEDS: Formoterol/Mometasone 200-5 MCG 8.8 GM Inhaler INH SCH ×2 (09:50→21:01)
[2023-05-20 10:19] LABS: INR 1.88 (0.86-1.11)
[2023-05-20] MEDS ORDERED: Warfarin 5 MG Tab PO ONE (14:00)
[2023-05-20] MEDS: Warfarin Sliding Scale SCH (15:16)
[2023-05-20] MEDS: VANCOmycin 1.25 GM/250 ML 1.25 GM in Premix Bag 1 BAG IV SCH (16:03)
[2023-05-20] MEDS: atorvaSTATin 40 MG Tab PO SCH (21:01)
[2023-05-21] MEDS: VANCOmycin 1.25 GM/250 ML 1.25 GM in Premix Bag 1 BAG IV SCH (02:58)
[2023-05-21] MEDS: Cefepime 2 GM in Sodium Chloride 0.9% 50 ML IV SCH (03:46)
[2023-05-21] MEDS: Pantoprazole 40 MG Tab.CR PO SCH (06:36)
[2023-05-21 06:42] LABS: BASOPHILS ABSOLUTE AUTO 0.06 K/uL (0.00-0.20); BASOPHILS PERCENT AUTO 0.5 % (0.0-1.0); EOSINOPHILS ABSOLUTE AUTO 0.45 K/uL (0.00-0.45); EOSINOPHILS PERCENT AUTO 3.6 % (0.0-6.0); HEMATOCRIT 33.5 % (42.0-52.0); HEMOGLOBIN 10.9 g/dL (14.0-18.0); IMMATURE GRAN PERCENT AUTO 0.8 % (0.0-0.4); LYMPHOCYTES ABSOLUTE AUTO 1.53 K/uL (1.00-4.80); LYMPHOCYTES PERCENT AUTO 12.3 % (24.0-44.0); MEAN CORPUSCULAR HEMOGLOBIN 27.3 pg (28.0-32.0); MEAN CORPUSCULAR HGB CONC 32.5 g/dL (32.0-36.0); MEAN CORPUSCULAR VOLUME 83.8 fL (83.0-99.0); MEAN PLATELET VOLUME 9.1 fL (9.4-12.4); MONOCYTES ABSOLUTE AUTO 0.91 K/uL (0.00-0.80); MONOCYTES PERCENT AUTO 7.3 % (0.0-8.0); NEUTROPHILS PERCENT AUTO 75.5 % (41.0-71.0); PLATELET COUNT,PLT 233 K/uL (150-400); WHITE BLOOD CELL COUNT,WBC 12.45 K/uL (3.9-11.3)
[2023-05-21 07:01] LABS: CALCIUM 8.9 mg/dL (8.5-10.1); CARBON DIOXIDE,CO2 23.3 mmol/L (21.0-32.0); EST CRCL DRUG DOSING (CG) 64.84 mL/min; POTASSIUM,K 3.6 mmol/L (3.5-5.1)
[2023-05-21] MEDS: Insulin Aspart 100 Units/ML 3 ML Pen SUBCUT SCH ×3 (07:59→17:47)
[2023-05-21] MEDS: Acetaminophen 500 MG Tab PO SCH ×2 (08:00→20:21)
[2023-05-21] MEDS: Allopurinol 300 MG Tab PO SCH (08:01)
[2023-05-21] MEDS: Losartan 50 MG Tab PO SCH (08:04)
[2023-05-21] MEDS: Diltiazem 120 MG Cap.CD PO SCH (08:04)
[2023-05-21] MEDS: Furosemide 40 MG Tab PO SCH ×4 (08:05→20:17)
[2023-05-21] MEDS: metroNIDAZOLE 250 MG Tab PO SCH ×4 (08:05→23:50)
[2023-05-21] MEDS: Metoprolol Succinate 25 MG Tab.ER PO SCH (08:06)
[2023-05-21] MEDS: Formoterol/Mometasone 200-5 MCG 8.8 GM Inhaler INH SCH ×2 (08:07→20:23)
[2023-05-21 09:26] LABS: INR 2.47 (0.86-1.11)
[2023-05-21] MEDS: Doxycycline 100 MG Cap PO SCH ×2 (10:35→20:17)
[2023-05-21] MEDS: Levofloxacin 750 MG Tab PO SCH (10:35)
[2023-05-21] MEDS ORDERED: metroNIDAZOLE 250 MG Tab PO ONE (10:43)
[2023-05-21] MEDS: Docusate Sodium 100 MG Cap PO PRN (12:51)
[2023-05-21] MEDS ORDERED: Warfarin 2.5 MG Tab PO SCH (14:00)
[2023-05-21] MEDS: Warfarin Sliding Scale SCH (14:26)
[2023-05-21] MEDS ORDERED: VANCOmycin 1.5 GM/300 ML 1.5 GM in Premix Bag 1 BAG IV SCH (15:00)
[2023-05-21] MEDS: atorvaSTATin 40 MG Tab PO SCH (20:17)
[2023-05-22] MEDS: Pantoprazole 40 MG Tab.CR PO SCH ×2 (06:11→06:33)
[2023-05-22 06:23] LABS: BASOPHILS ABSOLUTE AUTO 0.06 K/uL (0.00-0.20); BASOPHILS PERCENT AUTO 0.6 % (0.0-1.0); EOSINOPHILS ABSOLUTE AUTO 0.42 K/uL (0.00-0.45); HEMATOCRIT 31.7 % (42.0-52.0); HEMOGLOBIN 10.4 g/dL (14.0-18.0); IMMATURE GRAN ABSOLUTE AUTO 0.11 K/uL (0.00-0.05); LYMPHOCYTES ABSOLUTE AUTO 1.72 K/uL (1.00-4.80); LYMPHOCYTES PERCENT AUTO 16.4 % (24.0-44.0); MEAN CORPUSCULAR HEMOGLOBIN 27.4 pg (28.0-32.0); MEAN CORPUSCULAR HGB CONC 32.8 g/dL (32.0-36.0); MEAN CORPUSCULAR VOLUME 83.6 fL (83.0-99.0); MEAN PLATELET VOLUME 9.5 fL (9.4-12.4); MONOCYTES ABSOLUTE AUTO 0.81 K/uL (0.00-0.80); MONOCYTES PERCENT AUTO 7.7 % (0.0-8.0); NEUTROPHILS ABSOLUTE AUTO 7.36 K/uL (1.80-7.70); NEUTROPHILS PERCENT AUTO 70.3 % (41.0-71.0); PLATELET COUNT,PLT 242 K/uL (150-400); RED BLOOD CELL COUNT 3.79 M/uL (4.52-5.90); WHITE BLOOD CELL COUNT,WBC 10.48 K/uL (3.9-11.3)
[2023-05-22 06:47] LABS: CALCIUM 9.2 mg/dL (8.5-10.1); CARBON DIOXIDE,CO2 24.3 mmol/L (21.0-32.0); CREATININE 1.1 mg/dL (0.8-1.3); EST CRCL DRUG DOSING (CG) 58.95 mL/min
[2023-05-22] MEDS: Furosemide 40 MG Tab PO SCH ×2 (07:44→12:47)
[2023-05-22] MEDS: Insulin Aspart 100 Units/ML 3 ML Pen SUBCUT SCH ×2 (07:45→12:25)
[2023-05-22] MEDS: Acetaminophen 500 MG Tab PO SCH (08:23)
[2023-05-22] MEDS: Allopurinol 300 MG Tab PO SCH (08:24)
[2023-05-22] MEDS: Doxycycline 100 MG Cap PO SCH (08:24)
[2023-05-22] MEDS: Losartan 50 MG Tab PO SCH (08:25)
[2023-05-22] MEDS: Diltiazem 120 MG Cap.CD PO SCH (08:25)
[2023-05-22] MEDS: Metoprolol Succinate 25 MG Tab.ER PO SCH (08:26)
[2023-05-22] MEDS: Formoterol/Mometasone 200-5 MCG 8.8 GM Inhaler INH SCH (08:26)
[2023-05-22 08:50] LABS: INR 2.39 (0.86-1.11)
[2023-05-22] MEDS: Levofloxacin 750 MG Tab PO SCH (09:42)
[2023-05-22] MEDS: Warfarin 5 MG Tab PO ONE ×2 (12:47→14:15)
[2023-05-22] MEDS: Warfarin Sliding Scale SCH (14:15)
== END 2023-05-22 13:45 | DRG 603 ==
LOC: EEVIPCON 11:18 → MW.MS 11:18
PROVIDERS: ADMIT Family Medicine; ATTEND Family Medicine
DX: L03.115 Cellulitis of right lower limb (principal); I48.20 Chronic atrial fibrillation, unspecified; I50.32 Chronic diastolic (congestive) heart failure; Z68.43 Body mass index [BMI] 50.0-59.9, adult; E11.620 Type 2 diabetes mellitus with diabetic dermatitis; J44.9 Chronic obstructive pulmonary disease, unspecified; I87.2 Venous insufficiency (chronic) (peripheral); E78.2 Mixed hyperlipidemia; E66.01 Morbid (severe) obesity due to excess calories; G47.33 Obstructive sleep apnea (adult) (pediatric); B95.62 Methicillin resistant Staphylococcus aureus infection as the cause of diseases classified elsewhere; B96.5 Pseudomonas (aeruginosa) (mallei) (pseudomallei) as the cause of diseases classified elsewhere; Z79.01 Long term (current) use of anticoagulants; Z99.89 Dependence on other enabling machines and devices; Z79.84 Long term (current) use of oral hypoglycemic drugs; Z79.899 Other long term (current) drug therapy
CPT/HCPCS: 36415; 80048; 80202; 82947; 83735; 85025; 85610; 87040; 87070; 87077; 87186; 87205; 97140-GO; 97161-GP; 99213; 99223; 99231; 99232; 99239; A9270-GY; J0692; J1815-GY; J2543; J3370; J3490

== ENCOUNTER 2023-06-26 10:25 | Emergency (ER) | payer MEDICARE, BC ==
[2023-06-26 11:20] LABS: BASOPHILS ABSOLUTE AUTO 0.03 K/uL (0.00-0.20); BASOPHILS PERCENT AUTO 0.3 % (0.0-1.0); EOSINOPHILS ABSOLUTE AUTO 0.16 K/uL (0.00-0.45); EOSINOPHILS PERCENT AUTO 1.7 % (0.0-6.0); HEMATOCRIT 31.8 % (42.0-52.0); HEMOGLOBIN 9.9 g/dL (14.0-18.0); IMMATURE GRAN PERCENT AUTO 1.1 % (0.0-0.4); LYMPHOCYTES ABSOLUTE AUTO 1.05 K/uL (1.00-4.80); LYMPHOCYTES PERCENT AUTO 11.1 % (24.0-44.0); MEAN CORPUSCULAR HEMOGLOBIN 26.7 pg (28.0-32.0); MEAN CORPUSCULAR HGB CONC 31.1 g/dL (32.0-36.0); MEAN CORPUSCULAR VOLUME 85.7 fL (83.0-99.0); MEAN PLATELET VOLUME 9.6 fL (9.4-12.4); MONOCYTES ABSOLUTE AUTO 0.65 K/uL (0.00-0.80); MONOCYTES PERCENT AUTO 6.9 % (0.0-8.0); NEUTROPHILS ABSOLUTE AUTO 7.45 K/uL (1.80-7.70); NEUTROPHILS PERCENT AUTO 78.9 % (41.0-71.0); PLATELET COUNT,PLT 204 K/uL (150-400); RED BLOOD CELL COUNT 3.71 M/uL (4.52-5.90); WHITE BLOOD CELL COUNT,WBC 9.44 K/uL (3.9-11.3)
[2023-06-26 11:31] LABS: INR 1.6 (0.86-1.11)
[2023-06-26 11:47] LABS: A/G RATIO 0.8 (0.9-1.6); ALBUMIN 3.3 g/dL (3.4-5.0); BILIRUBIN TOTAL 0.6 mg/dL (0.2-1.0); CALCIUM 8.9 mg/dL (8.5-10.1); CARBON DIOXIDE,CO2 25.8 mmol/L (21.0-32.0); EST CRCL DRUG DOSING (CG) 64.84 mL/min; POTASSIUM,K 3.6 mmol/L (3.5-5.1); PROTEIN TOTAL,TP 7.4 g/dL (6.4-8.2)
[2023-06-26 11:48] LABS: CORONAVIRUS COVID-19 NAA NEGATIVE (NEGATIVE); INFLUENZA A NAA NEGATIVE (NEGATIVE); INFLUENZA B NAA NEGATIVE (NEGATIVE); RESPIRATORY SYNCYTIAL VIR NAA NEGATIVE (NEGATIVE)
== END 2023-06-26 13:46 | disposition home or self-care (01) ==
LOC: MW.ED 10:25
DX: R06.02 Shortness of breath (principal); I11.0 Hypertensive heart disease with heart failure; I50.9 Heart failure, unspecified; E78.00 Pure hypercholesterolemia, unspecified; J44.9 Chronic obstructive pulmonary disease, unspecified; E11.9 Type 2 diabetes mellitus without complications; E66.9 Obesity, unspecified; Z68.43 Body mass index [BMI] 50.0-59.9, adult; Z20.822 Contact with and (suspected) exposure to COVID-19; Z79.899 Other long term (current) drug therapy; Z79.84 Long term (current) use of oral hypoglycemic drugs
CPT/HCPCS: 0241U; 36415; 71045; 80053; 83880; 85025; 85610; 93005; 99285

== ENCOUNTER 2025-01-25 11:49 | Inpatient (IN) | payer MEDICARE, BC ==
[2025-01-25 12:24] LABS: BASOPHILS ABSOLUTE AUTO 0.04 K/uL (0.00-0.20); BASOPHILS PERCENT AUTO 0.4 % (0.0-1.0); EOSINOPHILS ABSOLUTE AUTO 0.21 K/uL (0.00-0.45); EOSINOPHILS PERCENT AUTO 2.0 % (0.0-6.0); IMMATURE GRAN ABSOLUTE AUTO 0.09 K/uL (0.00-0.05); IMMATURE GRAN PERCENT AUTO 0.9 % (0.0-0.4); LYMPHOCYTES ABSOLUTE AUTO 1.15 K/uL (1.00-4.80); LYMPHOCYTES PERCENT AUTO 11.0 % (24.0-44.0); MEAN PLATELET VOLUME 10.6 fL (9.4-12.4); MONOCYTES ABSOLUTE AUTO 0.83 K/uL (0.00-0.80); MONOCYTES PERCENT AUTO 8.0 % (0.0-8.0); NEUTROPHILS ABSOLUTE AUTO 8.10 K/uL (1.80-7.70); NEUTROPHILS PERCENT AUTO 77.7 % (41.0-71.0); NRBC ABSOLUTE 0.00 K/uL (0.00-0.02); NRBC PERCENT 0.0 /100WBC (0.0-0.2); PLATELET COUNT,PLT 196 K/uL (150-400); RED BLOOD CELL COUNT 4.07 M/uL (4.52-5.90); WHITE BLOOD CELL COUNT,WBC 10.42 K/uL (3.9-11.3)
[2025-01-25 12:30] LABS: INR 1.77 (0.86-1.11)
[2025-01-25 12:43] LABS: A/G RATIO 0.9 (0.9-1.6); ALANINE AMINOTRANSFERASE,ALT 19 IU/L (14-63); ASPARTATE AMNIOTRANSFERASE,AST 12 IU/L (15-37); BILIRUBIN TOTAL 1.0 mg/dL (0.2-1.0); BLOOD UREA NITROGEN,BUN 17 mg/dL (7.0-18.0); CARBON DIOXIDE,CO2 30.0 mmol/L (21.0-32.0); CHLORIDE,CL 104 mmol/L (98-107); CREATININE 1.0 mg/dL (0.8-1.3); GLUCOSE RANDOM 151 mg/dL (74-106); POTASSIUM,K 3.5 mmol/L (3.5-5.1); PRO B-TYPE NATRIUR PEPT,BNPPRO 543 pg/mL (0-450); PROTEIN TOTAL,TP 7.5 g/dL (6.4-8.2); SODIUM,NA 144 mmol/L (136-148)
[2025-01-25 12:45] LABS: ESTIMATED GFR 77 mL/min (>60)
[2025-01-25] MEDS: Furosemide 40 MG/4 ML VIAL IVPUSH ONE (14:37)
[2025-01-25] MEDS ORDERED: Sodium Chloride 0.9% 2.5 ML Syringe FLUSH PRN (15:13)
[2025-01-25] MEDS ORDERED: Sodium Chloride 0.9% 10 ML Syringe FLUSH PRN (15:13)
[2025-01-25] MEDS ORDERED: Albuterol 0.083% 2.5 MG/3 ML Neb Soln NEB PRN (15:13)
[2025-01-25] MEDS ORDERED: 50% Dextrose in Water 50 ML Syringe IVPUSH PRN (15:25)
[2025-01-25] MEDS: Furosemide 40 MG/4 ML VIAL IVPUSH SCH (17:35)
[2025-01-26 06:27] LABS: BASOPHILS ABSOLUTE AUTO 0.03 K/uL (0.00-0.20); BASOPHILS PERCENT AUTO 0.3 % (0.0-1.0); EOSINOPHILS ABSOLUTE AUTO 0.28 K/uL (0.00-0.45); EOSINOPHILS PERCENT AUTO 2.8 % (0.0-6.0); IMMATURE GRAN ABSOLUTE AUTO 0.08 K/uL (0.00-0.05); IMMATURE GRAN PERCENT AUTO 0.8 % (0.0-0.4); LYMPHOCYTES ABSOLUTE AUTO 1.15 K/uL (1.00-4.80); LYMPHOCYTES PERCENT AUTO 11.6 % (24.0-44.0); MEAN PLATELET VOLUME 9.7 fL (9.4-12.4); MONOCYTES ABSOLUTE AUTO 0.95 K/uL (0.00-0.80); MONOCYTES PERCENT AUTO 9.6 % (0.0-8.0); NEUTROPHILS ABSOLUTE AUTO 7.43 K/uL (1.80-7.70); NEUTROPHILS PERCENT AUTO 74.9 % (41.0-71.0); NRBC ABSOLUTE 0.00 K/uL (0.00-0.02); NRBC PERCENT 0.0 /100WBC (0.0-0.2); PLATELET COUNT,PLT 190 K/uL (150-400); RED BLOOD CELL COUNT 4.06 M/uL (4.52-5.90); WHITE BLOOD CELL COUNT,WBC 9.92 K/uL (3.9-11.3)
[2025-01-26 06:29] LABS: INR 1.63 (0.86-1.11)
[2025-01-26 07:00] LABS: A/G RATIO 0.9 (0.9-1.6); ALANINE AMINOTRANSFERASE,ALT 16.0 IU/L (14-63); ASPARTATE AMNIOTRANSFERASE,AST 14.0 IU/L (15-37); BILIRUBIN TOTAL 1.1 mg/dL (0.2-1.0); BLOOD UREA NITROGEN,BUN 17.0 mg/dL (7.0-18.0); CARBON DIOXIDE,CO2 32.0 mmol/L (21.0-32.0); CHLORIDE,CL 105.0 mmol/L (98-107); CREATININE 0.9 mg/dL (0.8-1.3); EST CRCL DRUG DOSING (CG) 70.88 mL/min; GLUCOSE RANDOM 145.0 mg/dL (74-106); POTASSIUM,K 3.2 mmol/L (3.5-5.1); PROTEIN TOTAL,TP 7.6 g/dL (6.4-8.2); SODIUM,NA 144.0 mmol/L (136-148)
[2025-01-26 07:02] LABS: ESTIMATED GFR 87.0 mL/min (>60)
[2025-01-26] MEDS: Potassium Chloride 20 MEQ Tab.ER PO ONE (08:09)
[2025-01-26] MEDS: Diltiazem 120 MG Cap.CD PO SCH (08:10)
[2025-01-26] MEDS: Warfarin Sliding Scale SCH (14:28)
[2025-01-27 06:26] LABS: INR 1.51 (0.86-1.11)
[2025-01-27 07:09] LABS: BASOPHILS ABSOLUTE AUTO 0.04 K/uL (0.00-0.20); BASOPHILS PERCENT AUTO 0.4 % (0.0-1.0); EOSINOPHILS ABSOLUTE AUTO 0.25 K/uL (0.00-0.45); EOSINOPHILS PERCENT AUTO 2.4 % (0.0-6.0); IMMATURE GRAN ABSOLUTE AUTO 0.08 K/uL (0.00-0.05); IMMATURE GRAN PERCENT AUTO 0.8 % (0.0-0.4); LYMPHOCYTES ABSOLUTE AUTO 1.11 K/uL (1.00-4.80); LYMPHOCYTES PERCENT AUTO 10.8 % (24.0-44.0); MEAN PLATELET VOLUME 10.8 fL (9.4-12.4); MONOCYTES ABSOLUTE AUTO 0.90 K/uL (0.00-0.80); MONOCYTES PERCENT AUTO 8.7 % (0.0-8.0); NEUTROPHILS ABSOLUTE AUTO 7.93 K/uL (1.80-7.70); NEUTROPHILS PERCENT AUTO 76.9 % (41.0-71.0); NRBC ABSOLUTE 0.00 K/uL (0.00-0.02); NRBC PERCENT 0.0 /100WBC (0.0-0.2); PLATELET COUNT,PLT 205 K/uL (150-400); RED BLOOD CELL COUNT 4.02 M/uL (4.52-5.90); WHITE BLOOD CELL COUNT,WBC 10.31 K/uL (3.9-11.3)
[2025-01-27 07:18] LABS: A/G RATIO 0.9 (0.9-1.6); ALANINE AMINOTRANSFERASE,ALT 16.0 IU/L (14-63); ASPARTATE AMNIOTRANSFERASE,AST 12.0 IU/L (15-37); BILIRUBIN TOTAL 1.0 mg/dL (0.2-1.0); BLOOD UREA NITROGEN,BUN 19.0 mg/dL (7.0-18.0); CARBON DIOXIDE,CO2 32.1 mmol/L (21.0-32.0); CHLORIDE,CL 105.0 mmol/L (98-107); CREATININE 1.1 mg/dL (0.8-1.3); EST CRCL DRUG DOSING (CG) 58.0 mL/min; GLUCOSE RANDOM 192.0 mg/dL (74-106); POTASSIUM,K 3.7 mmol/L (3.5-5.1); PROTEIN TOTAL,TP 7.4 g/dL (6.4-8.2); SODIUM,NA 143.0 mmol/L (136-148)
[2025-01-27 07:20] LABS: ESTIMATED GFR 68.0 mL/min (>60)
== END 2025-01-27 13:45 | disposition home or self-care (01) | DRG 291 ==
LOC: MW.ED 11:49 → MW.MS 15:11
PROVIDERS: ADMIT Internal Medicine; ATTEND Internal Medicine
DX: I11.0 Hypertensive heart disease with heart failure (principal); I50.9 Heart failure, unspecified; I50.33 Acute on chronic diastolic (congestive) heart failure; I48.20 Chronic atrial fibrillation, unspecified; Z68.43 Body mass index [BMI] 50.0-59.9, adult; E66.01 Morbid (severe) obesity due to excess calories; H26.9 Unspecified cataract; E78.00 Pure hypercholesterolemia, unspecified; J44.9 Chronic obstructive pulmonary disease, unspecified; G47.30 Sleep apnea, unspecified; K59.09 Other constipation; M19.90 Unspecified osteoarthritis, unspecified site; I87.2 Venous insufficiency (chronic) (peripheral); F41.9 Anxiety disorder, unspecified; F32.A Depression, unspecified; E11.9 Type 2 diabetes mellitus without complications; Z90.49 Acquired absence of other specified parts of digestive tract; Z98.890 Other specified postprocedural states; Z79.01 Long term (current) use of anticoagulants; Z79.84 Long term (current) use of oral hypoglycemic drugs; Z79.899 Other long term (current) drug therapy
CPT/HCPCS: 36415; 71045; 80053; 83735; 83880; 84484; 85025; 85610; 93005; 96374; 99285; J1938; 82947; A9270-GY; J1815-GY

== ENCOUNTER 2025-01-30 15:30 | Emergency (ER) | payer MEDICARE, BC | END 2025-01-30 17:15 | disposition home or self-care (01) | LOC: MW.ED 15:30 | DX: S00.411A Abrasion of right ear, initial encounter (principal); S10.91XA Abrasion of unspecified part of neck, initial encounter; I48.91 Unspecified atrial fibrillation; I11.0 Hypertensive heart disease with heart failure; I50.9 Heart failure, unspecified; J44.89 Other specified chronic obstructive pulmonary disease; E11.9 Type 2 diabetes mellitus without complications; X58.XXXA Exposure to other specified factors, initial encounter; Z75.3 Unavailability and inaccessibility of health-care facilities | CPT/HCPCS: 99282; 99283 ==

== ENCOUNTER 2025-03-02 06:47 | Inpatient (IN) | payer MEDICARE, BC ==
[2025-03-02] MEDS ORDERED: Sodium Chloride 0.9% 2.5 ML Syringe FLUSH PRN ×3 (07:04→11:46)
[2025-03-02] MEDS ORDERED: Sodium Chloride 0.9% 10 ML Syringe FLUSH PRN ×3 (07:04→11:46)
[2025-03-02 07:10] LABS: BASOPHILS ABSOLUTE AUTO 0.04 K/uL (0.00-0.20); BASOPHILS PERCENT AUTO 0.3 % (0.0-1.0); EOSINOPHILS ABSOLUTE AUTO 0.13 K/uL (0.00-0.45); EOSINOPHILS PERCENT AUTO 1.0 % (0.0-6.0); IMMATURE GRAN ABSOLUTE AUTO 0.09 K/uL (0.00-0.05); IMMATURE GRAN PERCENT AUTO 0.7 % (0.0-0.4); LYMPHOCYTES ABSOLUTE AUTO 0.77 K/uL (1.00-4.80); LYMPHOCYTES PERCENT AUTO 6.1 % (24.0-44.0); MEAN PLATELET VOLUME 9.9 fL (9.4-12.4); MONOCYTES ABSOLUTE AUTO 0.92 K/uL (0.00-0.80); MONOCYTES PERCENT AUTO 7.2 % (0.0-8.0); NEUTROPHILS ABSOLUTE AUTO 10.75 K/uL (1.80-7.70); NEUTROPHILS PERCENT AUTO 84.7 % (41.0-71.0); NRBC ABSOLUTE 0.00 K/uL (0.00-0.02); NRBC PERCENT 0.0 /100WBC (0.0-0.2); PLATELET COUNT,PLT 201 K/uL (150-400); RED BLOOD CELL COUNT 3.92 M/uL (4.52-5.90); WHITE BLOOD CELL COUNT,WBC 12.70 K/uL (3.9-11.3)
[2025-03-02 07:21] LABS: INR 2.06 (0.86-1.11); PTT,PARTIAL THROMBOPLSTIN TIME 35.7 SEC (23.9-30.7)
[2025-03-02] MEDS: Furosemide 40 MG/4 ML VIAL IVPUSH ONE (07:34)
[2025-03-02] MEDS: Nitroglycerin 2% Oint 1 GM UD Packet TOP ONE (07:34)
[2025-03-02 07:39] LABS: LACTIC ACID 1.5 mmol/L (0.4-2.0)
[2025-03-02 07:43] LABS: A/G RATIO 0.9 (0.9-1.6); ALANINE AMINOTRANSFERASE,ALT 23.0 IU/L (14-63); ASPARTATE AMNIOTRANSFERASE,AST 15.0 IU/L (15-37); BILIRUBIN TOTAL 1.3 mg/dL (0.2-1.0); BLOOD UREA NITROGEN,BUN 17.0 mg/dL (7.0-18.0); CARBON DIOXIDE,CO2 27.2 mmol/L (21.0-32.0); CHLORIDE,CL 105.0 mmol/L (98-107); CREATINE KINASE,CK 34.0 U/L (26-308); CREATININE 1.1 mg/dL (0.8-1.3); EST CRCL DRUG DOSING (CG) 58.0 mL/min; GLUCOSE RANDOM 163.0 mg/dL (74-106); POTASSIUM,K 3.7 mmol/L (3.5-5.1); PRO B-TYPE NATRIUR PEPT,BNPPRO 627.0 pg/mL (0-450); PROTEIN TOTAL,TP 8.0 g/dL (6.4-8.2); SODIUM,NA 144.0 mmol/L (136-148)
[2025-03-02] MEDS: cefTRIAXone 1 GM in Water For Injection, Sterile 10 ML IVPUSH ONE (07:43)
[2025-03-02 07:44] LABS: ESTIMATED GFR 68.0 mL/min (>60)
[2025-03-02 08:12] LABS: BASE EXCESS ARTERIAL 3.0 (-2.0-3.0); BICARBONATE,ARTERIAL 28 mEq/L (21-28); PCO2 ARTERIAL 43 mmHG (35-45); PO2 ARTERIAL 78 mmHG (83-108)
[2025-03-02 08:35] LABS: APPEARANCE,URINE CLEAR; GLUCOSE,URINE NEGATIVE (NEGATIVE); OCCULT BLOOD,URINE NEGATIVE (NEGATIVE)
[2025-03-02] MEDS ORDERED: Ondansetron 4 MG/2 ML SDV IVPUSH PRN (10:16)
[2025-03-02] MEDS ORDERED: Ondansetron 4 MG Tab.DIS PO PRN (10:16)
[2025-03-02] MEDS ORDERED: 50% Dextrose in Water 50 ML Syringe IVPUSH PRN (10:45)
[2025-03-02] MEDS ORDERED: Warfarin** 1 MG TABLET PO SCH (12:00)
[2025-03-02] MEDS: Potassium Chloride 20 MEQ Tab.ER PO SCH (13:00)
[2025-03-02] MEDS: Warfarin Sliding Scale PO SCH (16:20)
[2025-03-02] MEDS: Furosemide 40 MG/4 ML VIAL IVPUSH SCH (18:06)
[2025-03-02] MEDS: Formoterol/Mometasone 200-5 MCG 8.8 GM Inhaler INH SCH (20:18)
[2025-03-03 05:44] LABS: BASOPHILS ABSOLUTE AUTO 0.03 K/uL (0.00-0.20); BASOPHILS PERCENT AUTO 0.3 % (0.0-1.0); EOSINOPHILS ABSOLUTE AUTO 0.17 K/uL (0.00-0.45); EOSINOPHILS PERCENT AUTO 1.8 % (0.0-6.0); IMMATURE GRAN ABSOLUTE AUTO 0.06 K/uL (0.00-0.05); IMMATURE GRAN PERCENT AUTO 0.6 % (0.0-0.4); LYMPHOCYTES ABSOLUTE AUTO 1.01 K/uL (1.00-4.80); LYMPHOCYTES PERCENT AUTO 10.9 % (24.0-44.0); MEAN PLATELET VOLUME 9.8 fL (9.4-12.4); MONOCYTES ABSOLUTE AUTO 1.09 K/uL (0.00-0.80); MONOCYTES PERCENT AUTO 11.7 % (0.0-8.0); NEUTROPHILS ABSOLUTE AUTO 6.93 K/uL (1.80-7.70); NEUTROPHILS PERCENT AUTO 74.7 % (41.0-71.0); NRBC ABSOLUTE 0.00 K/uL (0.00-0.02); NRBC PERCENT 0.0 /100WBC (0.0-0.2); PLATELET COUNT,PLT 183 K/uL (150-400); RED BLOOD CELL COUNT 4.09 M/uL (4.52-5.90); WHITE BLOOD CELL COUNT,WBC 9.29 K/uL (3.9-11.3)
[2025-03-03 06:01] LABS: INR 1.73 (0.86-1.11)
[2025-03-03 06:20] LABS: A/G RATIO 0.9 (0.9-1.6); ALANINE AMINOTRANSFERASE,ALT 17.0 IU/L (14-63); ASPARTATE AMNIOTRANSFERASE,AST 13.0 IU/L (15-37); BILIRUBIN TOTAL 1.2 mg/dL (0.2-1.0); BLOOD UREA NITROGEN,BUN 16.0 mg/dL (7.0-18.0); CARBON DIOXIDE,CO2 28.9 mmol/L (21.0-32.0); CHLORIDE,CL 106.0 mmol/L (98-107); CREATININE 0.9 mg/dL (0.8-1.3); EST CRCL DRUG DOSING (CG) 70.88 mL/min; GLUCOSE RANDOM 128.0 mg/dL (74-106); PHOSPHORUS 3.5 mg/dL (2.6-4.7); POTASSIUM,K 4.0 mmol/L (3.5-5.1); PROTEIN TOTAL,TP 7.8 g/dL (6.4-8.2); SODIUM,NA 145.0 mmol/L (136-148)
[2025-03-03 06:30] LABS: ESTIMATED GFR 87.0 mL/min (>60)
[2025-03-03] MEDS: Diltiazem 120 MG Cap.CD PO SCH (08:00)
[2025-03-03] MEDS: Nystatin Topical Powder 15 GM Bottle TOP SCH (08:01)
[2025-03-03] MEDS: cefTRIAXone 1 GM in Water For Injection, Sterile 10 ML IVPUSH SCH (08:06)
[2025-03-04 05:58] LABS: BASOPHILS ABSOLUTE AUTO 0.03 K/uL (0.00-0.20); BASOPHILS PERCENT AUTO 0.3 % (0.0-1.0); EOSINOPHILS ABSOLUTE AUTO 0.27 K/uL (0.00-0.45); EOSINOPHILS PERCENT AUTO 3.0 % (0.0-6.0); IMMATURE GRAN ABSOLUTE AUTO 0.06 K/uL (0.00-0.05); IMMATURE GRAN PERCENT AUTO 0.7 % (0.0-0.4); LYMPHOCYTES ABSOLUTE AUTO 1.34 K/uL (1.00-4.80); LYMPHOCYTES PERCENT AUTO 14.9 % (24.0-44.0); MEAN PLATELET VOLUME 10.1 fL (9.4-12.4); MONOCYTES ABSOLUTE AUTO 0.88 K/uL (0.00-0.80); MONOCYTES PERCENT AUTO 9.8 % (0.0-8.0); NEUTROPHILS ABSOLUTE AUTO 6.41 K/uL (1.80-7.70); NEUTROPHILS PERCENT AUTO 71.3 % (41.0-71.0); NRBC ABSOLUTE 0.00 K/uL (0.00-0.02); NRBC PERCENT 0.0 /100WBC (0.0-0.2); PLATELET COUNT,PLT 206 K/uL (150-400); RED BLOOD CELL COUNT 3.83 M/uL (4.52-5.90); WHITE BLOOD CELL COUNT,WBC 8.99 K/uL (3.9-11.3)
[2025-03-04 06:24] LABS: A/G RATIO 0.8 (0.9-1.6); ALANINE AMINOTRANSFERASE,ALT 17.0 IU/L (14-63); ASPARTATE AMNIOTRANSFERASE,AST 11.0 IU/L (15-37); BILIRUBIN TOTAL 0.8 mg/dL (0.2-1.0); BLOOD UREA NITROGEN,BUN 18.0 mg/dL (7.0-18.0); CARBON DIOXIDE,CO2 30.4 mmol/L (21.0-32.0); CHLORIDE,CL 106.0 mmol/L (98-107); CREATININE 1.0 mg/dL (0.8-1.3); EST CRCL DRUG DOSING (CG) 63.8 mL/min; GLUCOSE RANDOM 127.0 mg/dL (74-106); POTASSIUM,K 3.9 mmol/L (3.5-5.1); PROTEIN TOTAL,TP 7.5 g/dL (6.4-8.2); SODIUM,NA 146.0 mmol/L (136-148)
[2025-03-04 06:25] LABS: ESTIMATED GFR 77.0 mL/min (>60)
[2025-03-04] MEDS: Furosemide 40 MG/4 ML VIAL IVPUSH SCH (08:11)
[2025-03-04 09:59] LABS: INR 1.65 (0.86-1.11)
[2025-03-05 06:04] LABS: BASOPHILS ABSOLUTE AUTO 0.03 K/uL (0.00-0.20); BASOPHILS PERCENT AUTO 0.3 % (0.0-1.0); EOSINOPHILS ABSOLUTE AUTO 0.37 K/uL (0.00-0.45); EOSINOPHILS PERCENT AUTO 4.1 % (0.0-6.0); IMMATURE GRAN ABSOLUTE AUTO 0.05 K/uL (0.00-0.05); IMMATURE GRAN PERCENT AUTO 0.5 % (0.0-0.4); LYMPHOCYTES ABSOLUTE AUTO 1.20 K/uL (1.00-4.80); LYMPHOCYTES PERCENT AUTO 13.2 % (24.0-44.0); MEAN PLATELET VOLUME 9.8 fL (9.4-12.4); MONOCYTES ABSOLUTE AUTO 0.96 K/uL (0.00-0.80); MONOCYTES PERCENT AUTO 10.5 % (0.0-8.0); NEUTROPHILS ABSOLUTE AUTO 6.49 K/uL (1.80-7.70); NEUTROPHILS PERCENT AUTO 71.4 % (41.0-71.0); NRBC ABSOLUTE 0.00 K/uL (0.00-0.02); NRBC PERCENT 0.0 /100WBC (0.0-0.2); PLATELET COUNT,PLT 200 K/uL (150-400); RED BLOOD CELL COUNT 3.83 M/uL (4.52-5.90); WHITE BLOOD CELL COUNT,WBC 9.10 K/uL (3.9-11.3)
[2025-03-05 06:14] LABS: INR 1.64 (0.86-1.11)
[2025-03-05 06:43] LABS: A/G RATIO 0.9 (0.9-1.6); ALANINE AMINOTRANSFERASE,ALT 23.0 IU/L (14-63); ASPARTATE AMNIOTRANSFERASE,AST 16.0 IU/L (15-37); BILIRUBIN TOTAL 0.7 mg/dL (0.2-1.0); BLOOD UREA NITROGEN,BUN 20.0 mg/dL (7.0-18.0); CARBON DIOXIDE,CO2 30.5 mmol/L (21.0-32.0); CHLORIDE,CL 105.0 mmol/L (98-107); CREATININE 1.1 mg/dL (0.8-1.3); EST CRCL DRUG DOSING (CG) 58.0 mL/min; GLUCOSE RANDOM 128.0 mg/dL (74-106); POTASSIUM,K 3.8 mmol/L (3.5-5.1); PROTEIN TOTAL,TP 7.4 g/dL (6.4-8.2); SODIUM,NA 145.0 mmol/L (136-148)
[2025-03-05 06:47] LABS: ESTIMATED GFR 68.0 mL/min (>60)
[2025-03-06 06:33] LABS: BASOPHILS ABSOLUTE AUTO 0.04 K/uL (0.00-0.20); BASOPHILS PERCENT AUTO 0.4 % (0.0-1.0); EOSINOPHILS ABSOLUTE AUTO 0.36 K/uL (0.00-0.45); EOSINOPHILS PERCENT AUTO 3.9 % (0.0-6.0); IMMATURE GRAN ABSOLUTE AUTO 0.04 K/uL (0.00-0.05); IMMATURE GRAN PERCENT AUTO 0.4 % (0.0-0.4); INR 1.54 (0.86-1.11); LYMPHOCYTES ABSOLUTE AUTO 1.42 K/uL (1.00-4.80); LYMPHOCYTES PERCENT AUTO 15.3 % (24.0-44.0); MEAN PLATELET VOLUME 9.6 fL (9.4-12.4); MONOCYTES ABSOLUTE AUTO 1.01 K/uL (0.00-0.80); MONOCYTES PERCENT AUTO 10.9 % (0.0-8.0); NEUTROPHILS ABSOLUTE AUTO 6.41 K/uL (1.80-7.70); NEUTROPHILS PERCENT AUTO 69.1 % (41.0-71.0); NRBC ABSOLUTE 0.00 K/uL (0.00-0.02); NRBC PERCENT 0.0 /100WBC (0.0-0.2); PLATELET COUNT,PLT 199 K/uL (150-400); RED BLOOD CELL COUNT 3.71 M/uL (4.52-5.90); WHITE BLOOD CELL COUNT,WBC 9.28 K/uL (3.9-11.3)
[2025-03-06 06:47] LABS: A/G RATIO 0.9 (0.9-1.6); ALANINE AMINOTRANSFERASE,ALT 16.0 IU/L (14-63); ASPARTATE AMNIOTRANSFERASE,AST 16.0 IU/L (15-37); BILIRUBIN TOTAL 0.6 mg/dL (0.2-1.0); BLOOD UREA NITROGEN,BUN 21.0 mg/dL (7.0-18.0); CARBON DIOXIDE,CO2 31.4 mmol/L (21.0-32.0); CHLORIDE,CL 105.0 mmol/L (98-107); CREATININE 1.0 mg/dL (0.8-1.3); EST CRCL DRUG DOSING (CG) 63.8 mL/min; GLUCOSE RANDOM 130.0 mg/dL (74-106); POTASSIUM,K 3.6 mmol/L (3.5-5.1); PROTEIN TOTAL,TP 7.4 g/dL (6.4-8.2); SODIUM,NA 144.0 mmol/L (136-148)
[2025-03-06 06:52] LABS: ESTIMATED GFR 77.0 mL/min (>60)
[2025-03-07 06:13] LABS: BASOPHILS ABSOLUTE AUTO 0.03 K/uL (0.00-0.20); BASOPHILS PERCENT AUTO 0.3 % (0.0-1.0); EOSINOPHILS ABSOLUTE AUTO 0.32 K/uL (0.00-0.45); EOSINOPHILS PERCENT AUTO 3.7 % (0.0-6.0); IMMATURE GRAN ABSOLUTE AUTO 0.04 K/uL (0.00-0.05); IMMATURE GRAN PERCENT AUTO 0.5 % (0.0-0.4); LYMPHOCYTES ABSOLUTE AUTO 1.27 K/uL (1.00-4.80); LYMPHOCYTES PERCENT AUTO 14.6 % (24.0-44.0); MEAN PLATELET VOLUME 9.9 fL (9.4-12.4); MONOCYTES ABSOLUTE AUTO 0.75 K/uL (0.00-0.80); MONOCYTES PERCENT AUTO 8.6 % (0.0-8.0); NEUTROPHILS ABSOLUTE AUTO 6.31 K/uL (1.80-7.70); NEUTROPHILS PERCENT AUTO 72.3 % (41.0-71.0); NRBC ABSOLUTE 0.00 K/uL (0.00-0.02); NRBC PERCENT 0.0 /100WBC (0.0-0.2); PLATELET COUNT,PLT 204 K/uL (150-400); RED BLOOD CELL COUNT 3.68 M/uL (4.52-5.90); WHITE BLOOD CELL COUNT,WBC 8.72 K/uL (3.9-11.3)
[2025-03-07 06:38] LABS: A/G RATIO 0.9 (0.9-1.6); ALANINE AMINOTRANSFERASE,ALT 21.0 IU/L (14-63); ASPARTATE AMNIOTRANSFERASE,AST 17.0 IU/L (15-37); BILIRUBIN TOTAL 0.7 mg/dL (0.2-1.0); BLOOD UREA NITROGEN,BUN 18.0 mg/dL (7.0-18.0); CARBON DIOXIDE,CO2 30.2 mmol/L (21.0-32.0); CHLORIDE,CL 104.0 mmol/L (98-107); CREATININE 0.9 mg/dL (0.8-1.3); EST CRCL DRUG DOSING (CG) 70.88 mL/min; GLUCOSE RANDOM 131.0 mg/dL (74-106); POTASSIUM,K 3.5 mmol/L (3.5-5.1); PROTEIN TOTAL,TP 7.5 g/dL (6.4-8.2); SODIUM,NA 141.0 mmol/L (136-148)
[2025-03-07 06:42] LABS: INR 1.62 (0.86-1.11)
[2025-03-07 06:44] LABS: ESTIMATED GFR 87.0 mL/min (>60)
== END 2025-03-07 11:35 | disposition home or self-care (01) | DRG 291 ==
LOC: MW.ED 06:47 → MW.ICU 10:41 → MW.MS 03-05 12:43
PROVIDERS: ADMIT Internal Medicine; ATTEND Family Medicine
PROC: 3E03329 Introduction of Other Anti-infective into Peripheral Vein, Percutaneous Approach (ICD-10-PCS; principal; 2025-03-02)
PROC: 5A09357 Assistance with Respiratory Ventilation, Less than 24 Consecutive Hours, Continuous Positive Airway Pressure (ICD-10-PCS; 2025-03-02)
PROC: 4A033R1 Measurement of Arterial Saturation, Peripheral, Percutaneous Approach (ICD-10-PCS; 2025-03-02)
PROC: 5A0935A Assistance with Respiratory Ventilation, Less than 24 Consecutive Hours, High Flow/Velocity Cannula (ICD-10-PCS; 2025-03-04)
DX: I11.0 Hypertensive heart disease with heart failure (principal); I50.33 Acute on chronic diastolic (congestive) heart failure; J18.9 Pneumonia, unspecified organism; J96.21 Acute and chronic respiratory failure with hypoxia; Z68.43 Body mass index [BMI] 50.0-59.9, adult; J44.0 Chronic obstructive pulmonary disease with (acute) lower respiratory infection; I50.32 Chronic diastolic (congestive) heart failure; Z66 Do not resuscitate; I48.91 Unspecified atrial fibrillation; F41.9 Anxiety disorder, unspecified; F32.A Depression, unspecified; K21.9 Gastro-esophageal reflux disease without esophagitis; E66.01 Morbid (severe) obesity due to excess calories; Z74.09 Other reduced mobility; L89.90 Pressure ulcer of unspecified site, unspecified stage; I87.2 Venous insufficiency (chronic) (peripheral); E11.620 Type 2 diabetes mellitus with diabetic dermatitis; K59.09 Other constipation; K46.9 Unspecified abdominal hernia without obstruction or gangrene; L91.8 Other hypertrophic disorders of the skin; E78.2 Mixed hyperlipidemia; G47.33 Obstructive sleep apnea (adult) (pediatric); R26.2 Difficulty in walking, not elsewhere classified; Z79.01 Long term (current) use of anticoagulants; J44.89 Other specified chronic obstructive pulmonary disease; Z99.81 Dependence on supplemental oxygen; E11.9 Type 2 diabetes mellitus without complications; Z79.52 Long term (current) use of systemic steroids; Z90.89 Acquired absence of other organs; M19.90 Unspecified osteoarthritis, unspecified site; Z79.51 Long term (current) use of inhaled steroids; Z79.899 Other long term (current) drug therapy; Z79.84 Long term (current) use of oral hypoglycemic drugs
CPT/HCPCS: 36415; 36600; 71045; 80053; 81003; 82550; 82803; 83036; 83605; 83735; 83880; 84484; 85025; 85610; 85730; 87040 ×2; 87428; 87899 ×2; 93005; 94660; 96374; 96375; 99285; A9270; J0696; J1938; 51702; 82947; 84100; 93010; 97162-GP; 97530-GP; 99223; 99232; 99239; J1815-GY

== ENCOUNTER 2025-05-13 18:18 | Inpatient (IN) | payer MEDICARE, BC ==
[2025-05-13] MEDS ORDERED: Sodium Chloride 0.9% 10 ML Syringe FLUSH PRN ×2 (18:35→23:41)
[2025-05-13] MEDS ORDERED: Sodium Chloride 0.9% 2.5 ML Syringe FLUSH PRN ×2 (18:35→23:41)
[2025-05-13 18:47] LABS: BASOPHILS ABSOLUTE AUTO 0.04 K/uL (0.00-0.20); BASOPHILS PERCENT AUTO 0.3 % (0.0-1.0); EOSINOPHILS ABSOLUTE AUTO 0.33 K/uL (0.00-0.45); EOSINOPHILS PERCENT AUTO 2.5 % (0.0-6.0); IMMATURE GRAN ABSOLUTE AUTO 0.09 K/uL (0.00-0.05); IMMATURE GRAN PERCENT AUTO 0.7 % (0.0-0.4); LYMPHOCYTES ABSOLUTE AUTO 1.08 K/uL (1.00-4.80); LYMPHOCYTES PERCENT AUTO 8.3 % (24.0-44.0); MEAN PLATELET VOLUME 10.7 fL (9.4-12.4); MONOCYTES ABSOLUTE AUTO 0.72 K/uL (0.00-0.80); MONOCYTES PERCENT AUTO 5.5 % (0.0-8.0); NEUTROPHILS ABSOLUTE AUTO 10.78 K/uL (1.80-7.70); NEUTROPHILS PERCENT AUTO 82.7 % (41.0-71.0); NRBC ABSOLUTE 0.00 K/uL (0.00-0.02); NRBC PERCENT 0.0 /100WBC (0.0-0.2); PLATELET COUNT,PLT 225 K/uL (150-400); RED BLOOD CELL COUNT 4.03 M/uL (4.52-5.90); WHITE BLOOD CELL COUNT,WBC 13.04 K/uL (3.9-11.3)
[2025-05-13 19:00] LABS: INR 2.04 (0.86-1.11); PTT,PARTIAL THROMBOPLSTIN TIME 35.6 SEC (23.9-30.7)
[2025-05-13 19:06] LABS: BICARBONATE,VENOUS 30.0 mEq/L (22-29); PCO2 VENOUS 46.0 mmHG (41-51); PH,VENOUS 7.42 (7.32-7.43); PO2 VENOUS 37.0 mmHG (35-45)
[2025-05-13 19:07] LABS: BASE EXCESS VENOUS 4.6 (-2.0-3.0)
[2025-05-13 19:15] LABS: A/G RATIO 1.0 (0.9-1.6); ALANINE AMINOTRANSFERASE,ALT 18.0 IU/L (14-63); ASPARTATE AMNIOTRANSFERASE,AST 20.0 IU/L (15-37); BILIRUBIN TOTAL 1.0 mg/dL (0.2-1.0); BLOOD UREA NITROGEN,BUN 17.0 mg/dL (7.0-18.0); CARBON DIOXIDE,CO2 27.2 mmol/L (21.0-32.0); CHLORIDE,CL 104.0 mmol/L (98-107); CREATININE 1.1 mg/dL (0.8-1.3); EST CRCL DRUG DOSING (CG) 57.05 mL/min; GLUCOSE RANDOM 150.0 mg/dL (74-106); POTASSIUM,K 3.7 mmol/L (3.5-5.1); PRO B-TYPE NATRIUR PEPT,BNPPRO 981.0 pg/mL (0-450); PROTEIN TOTAL,TP 8.3 g/dL (6.4-8.2); SODIUM,NA 143.0 mmol/L (136-148)
[2025-05-13 19:23] LABS: ESTIMATED GFR 68.0 mL/min (>60)
[2025-05-13 19:25] LABS: APPEARANCE,URINE CLEAR; GLUCOSE,URINE NEGATIVE (NEGATIVE); OCCULT BLOOD,URINE NEGATIVE (NEGATIVE)
[2025-05-13 19:35] LABS: CORONAVIRUS COVID-19 NAA NEGATIVE (NEGATIVE)
[2025-05-13] MEDS: Furosemide 40 MG/4 ML VIAL IVPUSH ONE (20:43)
[2025-05-13 20:46] LABS: INFLUENZA A NAA NEGATIVE (NEGATIVE); INFLUENZA B NAA NEGATIVE (NEGATIVE)
[2025-05-13] MEDS: cefTRIAXone 1 GM in Water For Injection, Sterile 10 ML IVPUSH ONE (21:11)
[2025-05-14 01:04] LABS: LACTIC ACID 1.2 mmol/L (0.4-2.0)
[2025-05-14 05:57] LABS: BASOPHILS ABSOLUTE AUTO 0.04 K/uL (0.00-0.20); BASOPHILS PERCENT AUTO 0.4 % (0.0-1.0); EOSINOPHILS ABSOLUTE AUTO 0.31 K/uL (0.00-0.45); EOSINOPHILS PERCENT AUTO 2.7 % (0.0-6.0); IMMATURE GRAN ABSOLUTE AUTO 0.09 K/uL (0.00-0.05); IMMATURE GRAN PERCENT AUTO 0.8 % (0.0-0.4); LYMPHOCYTES ABSOLUTE AUTO 1.34 K/uL (1.00-4.80); LYMPHOCYTES PERCENT AUTO 11.8 % (24.0-44.0); MEAN PLATELET VOLUME 10.5 fL (9.4-12.4); MONOCYTES ABSOLUTE AUTO 0.85 K/uL (0.00-0.80); MONOCYTES PERCENT AUTO 7.5 % (0.0-8.0); NEUTROPHILS ABSOLUTE AUTO 8.74 K/uL (1.80-7.70); NEUTROPHILS PERCENT AUTO 76.8 % (41.0-71.0); NRBC ABSOLUTE 0.00 K/uL (0.00-0.02); NRBC PERCENT 0.0 /100WBC (0.0-0.2); PLATELET COUNT,PLT 197 K/uL (150-400); RED BLOOD CELL COUNT 3.80 M/uL (4.52-5.90); WHITE BLOOD CELL COUNT,WBC 11.37 K/uL (3.9-11.3)
[2025-05-14 06:17] LABS: INR 2.09 (0.86-1.11)
[2025-05-14 06:18] LABS: BLOOD UREA NITROGEN,BUN 17.0 mg/dL (7.0-18.0); CARBON DIOXIDE,CO2 31.0 mmol/L (21.0-32.0); CHLORIDE,CL 105.0 mmol/L (98-107); CREATININE 1.0 mg/dL (0.8-1.3); EST CRCL DRUG DOSING (CG) 62.75 mL/min; GLUCOSE RANDOM 112.0 mg/dL (74-106); POTASSIUM,K 3.4 mmol/L (3.5-5.1); SODIUM,NA 143.0 mmol/L (136-148)
[2025-05-14 06:23] LABS: ESTIMATED GFR 76.0 mL/min (>60)
[2025-05-14] MEDS: Albuterol 0.083% 2.5 MG/3 ML Neb Soln INH SCH (07:13)
[2025-05-14] MEDS: Budesonide 0.5 MG/2 ML Neb Susp INH SCH (07:13)
[2025-05-14] MEDS: Diltiazem 120 MG Cap.CD PO SCH (08:07)
[2025-05-14] MEDS: Potassium Chloride 20 MEQ Tab.ER PO ONE (08:08)
[2025-05-14] MEDS ORDERED: Non-Formulary Medication 1 Each (Budesonide/Formoterol Fumarate [Symbicort 160-4.5 Mcg Inh IH SCH (09:00)
[2025-05-14] MEDS: Furosemide 40 MG/4 ML VIAL IVPUSH SCH (13:44)
[2025-05-14] MEDS: Warfarin Sliding Scale PO SCH (17:10)
[2025-05-14] MEDS: cefTRIAXone 1 GM in Water For Injection, Sterile 10 ML IVPUSH SCH (19:27)
[2025-05-15 07:08] LABS: INR 1.79 (0.86-1.11)
[2025-05-15 08:05] LABS: BASOPHILS ABSOLUTE AUTO 0.04 K/uL (0.00-0.20); BASOPHILS PERCENT AUTO 0.3 % (0.0-1.0); EOSINOPHILS ABSOLUTE AUTO 0.40 K/uL (0.00-0.45); EOSINOPHILS PERCENT AUTO 3.4 % (0.0-6.0); IMMATURE GRAN ABSOLUTE AUTO 0.11 K/uL (0.00-0.05); IMMATURE GRAN PERCENT AUTO 0.9 % (0.0-0.4); LYMPHOCYTES ABSOLUTE AUTO 1.17 K/uL (1.00-4.80); LYMPHOCYTES PERCENT AUTO 9.9 % (24.0-44.0); MEAN PLATELET VOLUME 10.5 fL (9.4-12.4); MONOCYTES ABSOLUTE AUTO 1.23 K/uL (0.00-0.80); MONOCYTES PERCENT AUTO 10.4 % (0.0-8.0); NEUTROPHILS ABSOLUTE AUTO 8.90 K/uL (1.80-7.70); NEUTROPHILS PERCENT AUTO 75.1 % (41.0-71.0); NRBC ABSOLUTE 0.00 K/uL (0.00-0.02); NRBC PERCENT 0.0 /100WBC (0.0-0.2); PLATELET COUNT,PLT 188 K/uL (150-400); RED BLOOD CELL COUNT 3.79 M/uL (4.52-5.90); WHITE BLOOD CELL COUNT,WBC 11.85 K/uL (3.9-11.3)
[2025-05-15 08:29] LABS: A/G RATIO 0.9 (0.9-1.6); ALANINE AMINOTRANSFERASE,ALT 15.0 IU/L (14-63); ASPARTATE AMNIOTRANSFERASE,AST 10.0 IU/L (15-37); BILIRUBIN TOTAL 1.0 mg/dL (0.2-1.0); BLOOD UREA NITROGEN,BUN 17.0 mg/dL (7.0-18.0); CARBON DIOXIDE,CO2 29.0 mmol/L (21.0-32.0); CHLORIDE,CL 105.0 mmol/L (98-107); CREATININE 0.9 mg/dL (0.8-1.3); EST CRCL DRUG DOSING (CG) 69.72 mL/min; GLUCOSE RANDOM 132.0 mg/dL (74-106); POTASSIUM,K 3.4 mmol/L (3.5-5.1); PROTEIN TOTAL,TP 7.6 g/dL (6.4-8.2); SODIUM,NA 142.0 mmol/L (136-148)
[2025-05-15 08:38] LABS: ESTIMATED GFR 86.0 mL/min (>60)
[2025-05-15] MEDS: Potassium Chloride 20 MEQ Tab.ER PO ONE (10:36)
== END 2025-05-15 12:42 | disposition home or self-care (01) | DRG 193 ==
LOC: MW.ED 18:18 → MW.MS 22:55
PROVIDERS: ADMIT Internal Medicine; ATTEND Internal Medicine
PROC: 3E03329 Introduction of Other Anti-infective into Peripheral Vein, Percutaneous Approach (ICD-10-PCS; principal; 2025-05-13)
PROC: 5A09357 Assistance with Respiratory Ventilation, Less than 24 Consecutive Hours, Continuous Positive Airway Pressure (ICD-10-PCS; 2025-05-13)
DX: J96.11 Chronic respiratory failure with hypoxia (principal); J18.9 Pneumonia, unspecified organism; I50.33 Acute on chronic diastolic (congestive) heart failure; J96.21 Acute and chronic respiratory failure with hypoxia; Z68.43 Body mass index [BMI] 50.0-59.9, adult; J44.0 Chronic obstructive pulmonary disease with (acute) lower respiratory infection; N17.9 Acute kidney failure, unspecified; Z75.3 Unavailability and inaccessibility of health-care facilities; Z79.84 Long term (current) use of oral hypoglycemic drugs; E87.20 Acidosis, unspecified; I11.0 Hypertensive heart disease with heart failure; Z66 Do not resuscitate; I48.91 Unspecified atrial fibrillation; K21.9 Gastro-esophageal reflux disease without esophagitis; G47.33 Obstructive sleep apnea (adult) (pediatric); M19.90 Unspecified osteoarthritis, unspecified site; E11.9 Type 2 diabetes mellitus without complications; F41.9 Anxiety disorder, unspecified; E66.01 Morbid (severe) obesity due to excess calories; E78.00 Pure hypercholesterolemia, unspecified; K59.09 Other constipation; F32.A Depression, unspecified; Z99.81 Dependence on supplemental oxygen; Z79.899 Other long term (current) drug therapy; Z79.1 Long term (current) use of non-steroidal anti-inflammatories (NSAID); Z98.49 Cataract extraction status, unspecified eye; Z87.09 Personal history of other diseases of the respiratory system; Z79.01 Long term (current) use of anticoagulants; Z79.2 Long term (current) use of antibiotics; Z98.890 Other specified postprocedural states; Z90.89 Acquired absence of other organs
CPT/HCPCS: 36415; 71045; 80053; 81003; 82803; 83605; 83735; 83880; 84484; 85025; 85610; 85730; 87040 ×2; 87636; 93005; 96374; 96375; 99285; J0696; J1938; 80048; 93010; A9270-GY; J0456; J7050